=== PATIENT | female | born 1990 | race Caucasian/White ===

== ENCOUNTER 2019-09-06 22:25 | Outpatient (CLI) | payer BC, SELFPAY ==
[2019-09-06 22:41] VITALS: BP 134/81; PULSE 82; TEMP 36.3; O2SAT 98
[2019-09-06 23:19] VITALS: BMI 29.8
[2019-09-06 23:44] VITALS: BP 174/81; PULSE 83; TEMP 36.7; O2SAT 97
[2019-09-06 23:45] VITALS: BP 146/77; PULSE 84
--- NOTE | 2019-09-07 08:36 | OB.TRI.NOTE ---
- Problem List (1) 40 weeks gestation of Status: Acute (2) Primiparous Status: Acute History of Present Illness Date of Service: 09/06/19 Reason For Visit: R/O LABOR History of Present Illness: +Ctx's q 5-8 min apart Allergies Sulfa (Sulfonamide Antibiotics) Adverse Reaction (Verified 09/06/19 23:20) Hives Physical Exam Vitals: Vital Signs Temp Pulse BP Pulse Ox 98.0 F 84 146/77 H 97 09/06/19 23:44 09/06/19 23:45 09/06/19 23:45 09/06/19 23:44 NST - FHR Rate Baby A Baseline: 120 Variability:: Moderate Accelerations:: 15 x 15 Decelerations:: None NST Reactive:: Yes FHR Category:: Category I Uterine Activity:: Ctx q 3-8 min Impression/Plan Cvx unchanged Likely in early labor Patient given return precautions and when to call
== END 2019-09-07 00:25 | disposition home or self-care (01) ==
LOC: WPOUT 22:37 → OBT 22:38
PROVIDERS: Visit Provider Obstetrics & Gynecology
DX: Z34.93 Encounter for supervision of normal pregnancy, unspecified, third trimester (principal)
CPT/HCPCS: 59025; 59050; 99218; G0378

== ENCOUNTER 2019-09-07 13:14 | Inpatient (IN) | payer BC, SELFPAY ==
[2019-09-06 23:19] VITALS: BMI 29.8
[2019-09-07] VITALS (37 sets, daily range): BP systolic 98–144; BP diastolic 54–103; PULSE 72–105; TEMP 36.2–36.9; O2SAT 96–100; BMI 29.3
[2019-09-07] MEDS: Lactated Ringers 1,000 ML 50 ML IV (13:23)
[2019-09-07 13:33] LABS: Absolute Lymphocyte Count 1.43 X10^3/uL (0.83-4.51); Absolute Neutrophil Count 6.6 X10^3/uL (2.0-7.7); Basophil# 0.02 X10^3/uL; Basophil% 0.2 % (0-1); Eosinophil# 0.05 X10^3/uL; Eosinophils% 0.6 % (0-5); Hematocrit 30.7 % (37-47); Hemoglobin 10.6 g/dL (12.0-15.0); Lymphocyte # 1.43 X10^3/ul (4.0); Lymphocyte % 16.6 % (19-41); Mean Corp Hgb Conc 34.5 g/dL (32-36); Mean Corpuscular Hgb 31.8 pg (27.0-32.0); Mean Corpuscular Volume 92.2 fL (81-99); Mean Platelet Vol. 9.9 fl (6.2-12.0); Monocyte# 0.48 X10^3/uL; Monocyte% 5.6 % (0-10); NRBC Flagged by Analyzer 0 % (0-5); Neutrophil % 76.3 % (47-70); Platelet Count 214 K/mm3 (150-450); RBC Distribution Width CV 13.9 % (11.6-14.6); RBC Distribution Width SD 46.1 fl (35.1-43.9); Red Blood Count 3.33 M/mm3 (4.2-5.4); White Blood Count 8.6 K/mm3 (4.4-11.0)
[2019-09-07 14:44] LABS: Probe Check PASS; Specimen Processing Control PASS
--- NOTE | 2019-09-07 14:58 | HP.PCM_ITS ---
- Problem List (1) 40 weeks gestation of Status: Acute (2) Primiparous Status: Acute History Date of Admission: 09/07/19 Final TATI: 09/07/19 Gestational age: 40 Weeks and 0 Days History of this : This is a 29 year-old, G 1, P 0, at 40 weeks gestational age who presents in early labor. Ctx's q 4-6 min. No lof, vb. Good FM. Medical History: Medical History (Last Updated 09/07/19 @ 14:[address] Kailey Banuelos, DO) Abnormal glucose complicating O99.810 History of anxiety Z86.59 History of migraine Z86.69 Allergies Sulfa (Sulfonamide Antibiotics) Adverse Reaction (Verified 09/06/19 23:20) Hives Home Medications: Home Medications Famotidine [Pepcid] 20 mg PO DAILY 09/06/19 Pnv 102/Iron/Folate/Dha 1 cap PO DAILY 09/06/19 Smoking Status: Former smoker Number of Fetus(es): 1 NST - FHR Rate Baby A FHR Category:: Category I Uterine Activity:: Ctx's q 6-8 min History Past Pregnancies: Past Pregnancies Delivery Date Name GA/ Weeks Outcome Route Wt Sex Labor Length Anesthesia Delivery Location Provider FOB Labs: See [facility] records GBS neg Expected Delivery Method: Spontaneous Vaginal Review of Systems Gynecological: Reports: - - +Ctx Physical Exam Vitals: Vital Signs Temp Pulse BP 97.8 F 83 144/85 H 09/07/19 14:44 09/07/19 14:44 09/07/19 14:44 General: Alert, No apparent distress HEENT: Atraumatic Abdomen: Soft, Non Tender, Gravid Extremities:: No edema Neurological: Neuro grossly intact [employer] SPECIALIST: Normal external genitalia Estimated gestational size: Appropriate for gestational size Presentation: Cephalic Cervix Dilation (cm): 3 - per RN Station: -1 Effacement (%): 85 Assessment/Plan All Active Problems 40 weeks gestation of (Acute) Primiparous (Acute) This is a 29 year-old, G1, P0, at 40 weeks gestational age who is admitted in early labor. - Routine intrapartum care - GBS neg - Epidural PRN - Pit for augmentation PRN - EFW estimated to be < 4500g and pelvis adequate. Anticipate
[2019-09-07] MEDS: fentaNYL-bupivacaine (epidural) 100 ML BAG EPIDURAL ×2 (15:49→20:30)
[2019-09-07] MEDS: Oxytocin 30 units/NS 500 ml 30 UNITS/500 ML IV.SOLN IV (17:17)
[2019-09-07] MEDS: Lactated Ringers 1,000 ML 200 ML IV (21:00)
[2019-09-07] MEDS: Ondansetron 4 MG/2 ML Vial IV (21:45)
[2019-09-07] MEDS: 0.9% Saline Lock 10 ML Syringe IV ×2 (21:45→22:21)
[2019-09-07] MEDS: Acetaminophen 325 MG Tablet PO (22:04)
[2019-09-07] MEDS: proCHLORPERazine 10 MG/2 ML Vial IV (22:21)
[2019-09-08] VITALS (28 sets, daily range): BP systolic 111–154; BP diastolic 59–86; PULSE 73–102; RESP 14; TEMP 36.3–37.1; O2SAT 96–98
[2019-09-08] MEDS: Lactated Ringers 500 ML 999 ML IV (00:31)
[2019-09-08] MEDS: fentaNYL-bupivacaine (epidural) 100 ML BAG EPIDURAL ×2 (01:15→07:30)
[2019-09-08] MEDS: Lactated Ringers 1,000 ML 200 ML IV ×2 (02:32→07:55)
[2019-09-08] MEDS: Acetaminophen 325 MG Tablet PO (07:42)
--- NOTE | 2019-09-08 07:59 | PN_ITS ---
Progress Note Patient pushing in hands and knees. Patient has been pushing for about 4 hours with good maternal effort. Category 2 tracing. Discussed possible vacuum assisted vaginal delivery vs primary section. Questions answered. 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 STROKE Vital Signs/Narrative: Vital Signs Temp Pulse BP Pulse Ox 09/08/19 07:39 80 154/86 H 09/08/19 07:29 98.2 F 09/08/19 06:14 86 96 09/08/19 06:12 98.1 F 80 126/72 H 09/08/19 05:01 78 97 09/08/19 05:00 98.1 F 85 123/64 H
[2019-09-08] MEDS: Oxytocin 30 units/NS 500 ml 30 UNITS/500 ML IV.SOLN 334 UNITS IV (09:27)
--- NOTE | 2019-09-08 09:48 | OP.PCM_ITS ---
Vaginal Delivery Maternal Presentation: Active Labor Amniotic Fluid Description: Thick meconium Final TATI: 09/07/19 Gestational age: 40 Weeks and 1 Days Date of Procedure: 09/08/19 Pre-Operative Diagnosis: prolonged second stage of labor, maternal exhaustion Post-Operative Diagnosis: same Surgery/ Procedure Performed: Vacuum Assisted Vaginal Delivery Type of Anesthesia: Epidural Description of Procedure: I arrived and the patient had been pushing for over 4 hours. She had made some progress. Position was WEST. Pelvis is clinically adequate. Estimated weight was less than 4500 g clinically. She had an epidural that was adequate and a Clark catheter in place. Thick meconium stained fluid was present. I discussed with the patient risk benefits and alternatives to trial of vacuum- assisted vaginal delivery. When she pushed the head was labia only slightly. She was plus 2 out of 5 station. Amount of It. The vacuum was placed on the flexion point and the vacuum created to 550 mmHg. I pulled with 1 pull and significant progress was made. I pulled with the next contraction and work progress was made but there was a pop-off. I then attempted to place the vacuum with the next 2 contractions but the suction would not maintain due to the It. Vacuum was then discontinued. With the next 3 contractions with Mariangel Sage CNM assisting with some fundal pressure and maternal pushing efforts, the head then delivered WEST over a second-degree perineal laceration. A loose nuchal cord ?1 was easily reduced. The remainder the was delivered with maternal pushing and gentle traction only in less than 15 seconds. The Pitocin infusion was initiated for active management of the third stage. The cord was clamped and cut after 1 minute. The infant was attended to by the waiting nursing staff. The placenta was delivered spontaneously and intact. The cervix and vagina were intact. The second-degree perineal laceration and right vaginal laceration were repaired with 2-0 Vicryl and 3-0 Vicryl suture in a running standard fashion. Sponge and needle counts were correct. A vaginal sweep was completed by me. Presentation: WEST Placental Delivery Description: Spontaneous Placenta Disposition: [facility] Cord Vessel Description: 3 Vessels Nuchal Cord Compression: Without compression Cord Gases drawn per routine: ABG, VBG Cord Entanglement: Around neck x 1, loose Drain: Clark to straight drain Estimated Blood Loss: 400 Infant A gender: Male (1 minute): 7 (5 minute): 9 Episiotomy Description: None Laceration: Vaginal Extension/lac - right side, 2nd degree Medications given after delivery: IV Pitocin Complications: None
[2019-09-08] MEDS: Naproxen 250 MG Tablet 500 MG PO ×2 (11:09→21:41)
[2019-09-08] MEDS: Acetaminophen 500 MG Tablet 1000 MG PO (17:25)
[2019-09-08] MEDS: Senna/Docusate Sodium 1 Tablet PO (21:41)
[2019-09-09 03:24] VITALS: BP 118/68; PULSE 77; RESP 14; TEMP 36.4
[2019-09-09] MEDS: Acetaminophen 500 MG Tablet 1000 MG PO ×2 (03:31→14:47)
--- NOTE | 2019-09-09 08:16 | PCM.PN.OB ---
Subjective: pt seen at bedside, doing well. pt reports good pain control. lochia mild. breast feeding. - Physical Exam Vitals/I&O's: Vital Signs Temp Pulse Resp BP Pulse Ox 97.6 F L 77 14 118/68 96 09/09/19 03:24 09/09/19 03:24 09/09/19 03:24 09/09/19 03:24 09/08/19 06:14 Oxygen Delivery Method Room Air Weight: 77.6 kg Body Mass Index (BMI) 29.3 Intake and Output for Last 24 Hours 09/07/19 09/08/19 09/09/19 23:59 23:59 23:59 Intake Total 380.83 / 380.83 3821.70 / 3821.70 Output Total 350 / 350 550 / 550 Balance 30.83 / 30.83 3271.70 / 3271.70 Abdomen: Soft, Non Tender, Non-Distended, - - fundus firm Extremities: No Calf Tenderness Current Medications Acetaminophen (Tylenol) 1,000 mg PO Q8H PRN PRN PRN Reason: Pain Score 1-3/10 Last Admin: 09/09/19 03:31 Dose: 1,000 mg Documented by: Bisacodyl (Dulcolax) 10 mg RECTAL UD PRN PRN Reason: If no BM Dibucaine (Dibucaine) 1 applic TOPICAL TID PRN PRN; Protocol PRN Reason: Discomfort Hydrocortisone (Hytone) 1 applic TOPICAL TID PRN PRN; Protocol PRN Reason: Discomfort Methylergonovine Maleate (Methergine) 0.2 mg IM X1 PRN PRN Reason: Excess bleeding/uterine atony Naproxen (Naprosyn) 500 mg PO Q8H PRN PRN PRN Reason: Pain Score 1-3/10 Last Admin: 09/08/19 21:41 Dose: 500 mg Documented by: Ondansetron HCl (Zofran) 4 mg IV Q4H PRN PRN PRN Reason: Nausea Oxycodone HCl (Oxyir) 5 - 10 mg PO Q4H PRN PRN PRN Reason: Pain Score 4-10/10 Prochlorperazine Edisylate (Compazine Iv) 10 mg IV Q6H PRN PRN PRN Reason: NAUSEA/VOMITING Senna/Docusate Sodium (Senokot-S, Kaya-Colace) 1 - 2 tablet PO DAILY PRN PRN PRN Reason: Constipation Last Admin: 09/08/19 21:41 Dose: 2 tablet Documented by: Simethicone (Mylicon) 80 mg PO HS PRN PRN Reason: Indigestion/Stomach pain Sodium Chloride () 5 - 15 ml IV UD PRN PRN Reason: SALINE FLUSH Medical Necessity - Tobacco Use Smoking Status: Former smoker Assessment/Plan All Active Problems (Last Updated 09/07/19 @ 14:[address] Kailey Banuelos, DO) 40 weeks gestation of (Acute) Primiparous (Acute) PPD#1, doing well routine care pain mgmt ambulation
[2019-09-09 08:20] VITALS: BP 108/67; PULSE 83; RESP 16; TEMP 36.4
[2019-09-09] MEDS: Naproxen 250 MG Tablet 500 MG PO ×2 (11:28→20:24)
[2019-09-09 11:30] VITALS: BP 123/66; PULSE 85; RESP 16; TEMP 36.8
[2019-09-09 14:52] VITALS: BP 128/56; PULSE 94; RESP 18; TEMP 36.6
[2019-09-09 20:28] VITALS: BP 130/71; PULSE 78; RESP 16; TEMP 36.6
[2019-09-09] MEDS: Dibucaine 30 GM Tube 1 APPLIC TOPICAL (21:12)
[2019-09-10] MEDS: Acetaminophen 500 MG Tablet 1000 MG PO ×2 (00:56→09:45)
[2019-09-10 01:07] VITALS: BP 114/62; PULSE 78; RESP 14; TEMP 36.7
[2019-09-10] MEDS: Naproxen 250 MG Tablet 500 MG PO (04:38)
[2019-09-10] MEDS: Senna/Docusate Sodium 1 Tablet PO ×2 (04:38→09:46)
--- NOTE | 2019-09-10 08:35 | PCM.PN.OB ---
Subjective: Pain well controlled. Average lochia. Urinating without difficulty. - Physical Exam Vitals/I&O's: Vital Signs Temp Pulse Resp BP Pulse Ox 98.0 F 78 14 114/62 96 09/10/19 01:07 09/10/19 01:07 09/10/19 01:07 09/10/19 01:07 09/08/19 06:14 Oxygen Delivery Method Room Air Weight: 77.6 kg Body Mass Index (BMI) 29.3 Intake and Output for Last 24 Hours 09/08/19 09/09/19 09/10/19 23:59 23:59 23:59 Intake Total 3821.70 / 3821.70 Output Total 550 / 550 Balance 3271.70 / 3271.70 General: Alert, Cooperative, No apparent distress Current Medications Acetaminophen (Tylenol) 1,000 mg PO Q8H PRN PRN PRN Reason: Pain Score 1-3/10 Last Admin: 09/10/19 00:56 Dose: 1,000 mg Documented by: Bisacodyl (Dulcolax) 10 mg RECTAL UD PRN PRN Reason: If no BM Dibucaine (Dibucaine) 1 applic TOPICAL TID PRN PRN; Protocol PRN Reason: Discomfort Last Admin: 09/09/19 21:12 Dose: 1 applicatio Documented by: Hydrocortisone (Hytone) 1 applic TOPICAL TID PRN PRN; Protocol PRN Reason: Discomfort Methylergonovine Maleate (Methergine) 0.2 mg IM X1 PRN PRN Reason: Excess bleeding/uterine atony Naproxen (Naprosyn) 500 mg PO Q8H PRN PRN PRN Reason: Pain Score 1-3/10 Last Admin: 09/10/19 04:38 Dose: 500 mg Documented by: Ondansetron HCl (Zofran) 4 mg IV Q4H PRN PRN PRN Reason: Nausea Oxycodone HCl (Oxyir) 5 - 10 mg PO Q4H PRN PRN PRN Reason: Pain Score 4-10/10 Prochlorperazine Edisylate (Compazine Iv) 10 mg IV Q6H PRN PRN PRN Reason: NAUSEA/VOMITING Senna/Docusate Sodium (Senokot-S, Kaya-Colace) 1 - 2 tablet PO DAILY PRN PRN PRN Reason: Constipation Last Admin: 09/10/19 04:38 Dose: 1 tablet Documented by: Simethicone (Mylicon) 80 mg PO PCHS PRN PRN Reason: Indigestion/Stomach pain Sodium Chloride () 5 - 15 ml IV UD PRN PRN Reason: SALINE FLUSH Throat Lozenges (Dermoplast (Sp)) 1 applic TOPICAL 4X/DAY PRN PRN; Protocol PRN Reason: pain Medical Necessity - Tobacco Use Smoking Status: Former smoker Assessment/Plan All Active Problems (Last Updated 09/07/19 @ 14:[address] Kailey Banuelos, DO) 40 weeks gestation of (Acute) Primiparous (Acute) day #2 status post vaginal delivery. are doing well. Desires discharge home today. Routine instructions and prescriptions.
[2019-09-10 08:36] VITALS: BP 136/82; PULSE 86; RESP 18
--- NOTE | 2019-09-10 08:44 | DCINST_ITS ---
Discharge Diet: No Restrictions Discharge Activity: Return to Normal Activity, May not drive while taking narcotic pain medications., May Shower May resume sexual activity in: 4-6 weeks Additional Activity Instructions:: Nothing in the vagina for 4-6 weeks. You may return to work/school in 6 weeks. Call your doctor if your incision/area has: Continuous Slow Oozing, Sudden Increased Bleeding, Increased Pain/ Swelling, Increased Redness, Foul Smelling Discharge Additional Instructions: If you experience any of the following, contact your healthcare provider. * Bleeding that soaks a pad every hour for 2 hours * Fever 100.4 or higher * Unrelieved incision or abdominal pain * Swelling, redness, discharge or bleeding from your incision or episiotomy site * Your incision begins to separate * Problems urinating (including inability to urinate or burning while urinating). * Visual changes * Severe headache * Flu-like symptoms * Pain or redness in one of both of your breasts * Pain, warmth, tenderness or swelling in your legs, especially the calf area * Frequent nausea and vomiting * Symptoms of depression or anxiety If you experience any of the following, call 911 or go to the nearest Emergency Room. * Chest pain * Problems breathing * Seizure activity * Partial or complete paralysis of a body part, slurred speech, weakness or drooping of the face, or a sudden inability to walk or hold your balance Allergies/Adverse Reactions: Allergies Sulfa (Sulfonamide Antibiotics) Adverse Reaction (Verified 09/06/19 23:20) Hives Medications to take at Discharge Famotidine [Pepcid] 20 mg PO DAILY 09/06/19 Pnv 102/Iron/Folate/Dha 1 cap PO DAILY 09/06/19 Ibuprofen [Motrin] 600 mg PO Q6H PRN #60 tab 09/10/19 The following prescriptions were given: Ibuprofen [Motrin] 600 mg PO Q6H PRN #60 tab PRN Reason: Pain Transmission Status: Pending to [facility]/pharmacy #[id number] Please Follow Up With: Nicolette Rubio MD - [phone] When: Call to make an appointment with your provider's office virtually in 1-2 weeks and in office in 6 weeks or as needed Primary Care Physician: Care Physician,No Primary [Primary Care Provider] - Test Results: Test results from this visit will be discussed in further detail at your follow- up appointment, if applicable.
--- NOTE | 2019-09-10 08:44 | PCM.DCVAG ---
Discharge Diet: No Restrictions Discharge Activity: Return to Normal Activity, May not drive while taking narcotic pain medications., May Shower May resume sexual activity in: 4-6 weeks Additional Activity Instructions:: Nothing in the vagina for 4-6 weeks. You may return to work/school in 6 weeks. Call your doctor if your incision/area has: Continuous Slow Oozing, Sudden Increased Bleeding, Increased Pain/ Swelling, Increased Redness, Foul Smelling Discharge Additional Instructions: If you experience any of the following, contact your healthcare provider. Bleeding that soaks a pad every hour for 2 hours Fever 100.4 or higher Unrelieved incision or abdominal pain Swelling, redness, discharge or bleeding from your incision or episiotomy site Your incision begins to separate Problems urinating (including inability to urinate or burning while urinating). Visual changes Severe headache Flu-like symptoms Pain or redness in one of both of your breasts Pain, warmth, tenderness or swelling in your legs, especially the calf area Frequent nausea and vomiting Symptoms of depression or anxiety If you experience any of the following, call 911 or go to the nearest Emergency Room. Chest pain Problems breathing Seizure activity Partial or complete paralysis of a body part, slurred speech, weakness or drooping of the face, or a sudden inability to walk or hold your balance Allergies/Adverse Reactions: Allergies Sulfa (Sulfonamide Antibiotics) Adverse Reaction (Verified 09/06/19 23:20) Hives Medications to take at Discharge Famotidine [Pepcid] 20 mg PO DAILY 09/06/19 Pnv 102/Iron/Folate/Dha 1 cap PO DAILY 09/06/19 Ibuprofen [Motrin] 600 mg PO Q6H PRN #60 tab 09/10/19 The following prescriptions were given: Ibuprofen [Motrin] 600 mg PO Q6H PRN #60 tab PRN Reason: Pain Transmission Status: Pending to [facility]/pharmacy #[id number] Please Follow Up With: Nicolette Rubio MD - [phone] When: Call to make an appointment with your provider's office virtually in 1-2 weeks and in office in 6 weeks or as needed Primary Care Physician: Care Physician,No Primary [Primary Care Provider] - Test Results: Test results from this visit will be discussed in further detail at your follow-up appointment, if applicable.
[2019-09-10 09:30] VITALS: BP 141/79; PULSE 84; RESP 18; TEMP 36.4
== END 2019-09-10 13:00 | disposition home or self-care (01) | DRG 807 ==
LOC: WP 09-08 09:29 → WPOUT 09-08 10:40
PROVIDERS: Obstetrics & Gynecology; Admitting Provider Obstetrics & Gynecology; Visit Provider Obstetrics & Gynecology
DX: O77.0 Labor and delivery complicated by meconium in amniotic fluid (principal); Z37.0 Single live birth; O69.81X0 Labor and delivery complicated by cord around neck, without compression, not applicable or unspecified; O48.0 Post-term pregnancy; Z3A.40 40 weeks gestation of pregnancy; O70.1 Second degree perineal laceration during delivery
CPT/HCPCS: 59025; 59050; 85025; 86850; 86900; 86901; 87635; 94799; 99218; J7120; A4216; G0378; J2405; U0003

== ENCOUNTER → 2019-09-11 | Outpatient (CLI) | payer BC, SELFPAY ==
[2019-09-12 21:07] VITALS: BMI 27.8
== END | disposition home or self-care (01) ==
LOC: TELEHEALTH 09-15 06:24
PROVIDERS: Referring Provider Obstetrics & Gynecology; Visit Provider Obstetrics & Gynecology
DX: N64.59 Other signs and symptoms in breast (principal)
CPT/HCPCS: 96158

== ENCOUNTER 2019-09-12 20:49 | Outpatient (CLI) | payer BC, SELFPAY ==
[2019-09-07 13:16] VITALS: BMI 29.3
[2019-09-12] VITALS (17 sets, daily range): BP systolic 116–176; BP diastolic 68–98; PULSE 69–78; RESP 15–18; TEMP 36.4–36.7; O2SAT 98–99; BMI 27.6; BMI 27.8
--- NOTE | 2019-09-12 20:48 | ED.RN ---
pt was brought to ED for hypertension and bilateral lower leg swelling. ED nurse spoke with OB who were expecting pt to be seen in their department. [facility] upon realizing this.
--- NOTE | 2019-09-12 21:08 | NURSING ---
Demian Sage CNM at bedside to assess patient at this time.
--- NOTE | 2019-09-12 21:22 | PCM.HP.OB ---
- Problem List (1) hypertension Status: Acute History Date of Admission: 09/07/19 History of this : This is a 29 year-old, G [], P [], at weeks gestational age. Medical History: Medical History (Last Updated 09/07/19 @ 14:[address] Kailey Banuelos, DO) Abnormal glucose complicating O99.810 History of anxiety Z86.59 History of migraine Z86.69 Allergies Sulfa (Sulfonamide Antibiotics) Adverse Reaction (Verified 09/12/19 20:34) Hives Smoking Status: Former smoker History Past Pregnancies: Past Pregnancies Delivery Date Name GA/ Weeks Outcome Route Wt Sex Labor Length Anesthesia Delivery Location Provider FOB Physical Exam Vitals: Vital Signs Temp Pulse Resp BP Pulse Ox 98.1 F 72 15 154/91 H 98 09/12/19 20:31 09/12/19 20:31 09/12/19 20:31 09/12/19 20:31 09/12/19 20:31 Assessment/Plan All Active Problems (Last Updated 09/07/19 @ 14:[address] Kailey Banuelos, ) 40 weeks gestation of (Acute) Primiparous (Acute) hypertension (Acute) This is a 29 year-old, G [], P [], at weeks gestational age.
--- NOTE | 2019-09-12 21:25 | HP.PCM_ITS ---
Problem List (1) hypertension Status: Acute History of Present Illness Date of Admission: 09/12/19 Chief Complaint: Lower extremity edema and elevated blood pressure The patient is a 29 year old F []Presents 4 days with comp laint of bilateral lower extremity edema that was present earlier this morning with no other complaints. Began to feel off later in the day and took BP at home, elevated 157/92 and advised to come to labor and delivery. Has dull headache but this is normal for her and nothing new since before delivery, no scotoma. Denies chest pain, shortness of breath, or right upper quadrant pain. without difficulty. Sleeping well and has good support at home. Denies any increased anxiety or depression. course was uncomplicated. Past Medical History Medical History: Medical History (Last Updated 09/07/19 @ 14:[address] Kailey Banuelos DO) Abnormal glucose complicating O99.810 History of anxiety Z86.59 History of migraine Z86.69 Allergies Sulfa (Sulfonamide Antibiotics) Adverse Reaction (Verified 09/12/19 20:34) Hives Smoking Status: Former smoker Alcohol: None Drugs: None Review of Systems Constitutional: Denies: Chills, Fever, Weight Change Eyes: Denies: Blurred vision, Double vision, Vision Change HEENT: Denies: Head Aches, Sinus Congestion, Sinus Drainage Cardiovascular: Denies: Chest Pain, Palpitations Respiratory: Denies: Cough, Shortness of breath at rest, Sputum production Gastrointestinal: Denies: Abdominal Pain, Nausea, Vomiting Genitourinary: Denies: Dysuria Musculoskeletal: Denies: Joint Pain, Joint Tenderness Skin: Denies: Rash, Wounds Neurological: Denies: Numbness, Tingling, Focal weakness Psychiatric: Denies: Anxiety, Depression, Homicidal Ideations, Suicidal Ideations Hematologic/ Lymphatic: Denies: Easy Bruising, Easy Bleeding VTE Information - Inpt Only VTE Present on Admission: No Patient Problems: Active and Suspected Problems (Last Updated 09/07/19 @ 14:[address] Kailey Banuelos DO) hypertension (Acute) - Physical Exam Vitals/I&O's: Vital Signs Temp Pulse Resp BP Pulse Ox 98.1 F 72 15 154/91 H 98 09/12/19 20:31 09/12/19 20:31 09/12/19 20:31 09/12/19 20:31 09/12/19 20:31 Oxygen Delivery Method Room Air Weight: 162 lb Body Mass Index (BMI) 27.8 General: Alert, Oriented x3, Cooperative HEENT: Atraumatic, Normocephalic Neck: Trachea Midline Lungs: Clear to auscultation, Normal air movement, No rhonchi, No wheeze Cardiovascular: Regular rate, Regular Rhythm, No murmurs Abdomen: Bowel Sounds Present, Soft, Non Tender Extremities: No edema Neurological: Deep Tendon Reflexes 2+/4 and Symmetrical - No clonus Psych/Mental Status: Normal Affect, Appropriate Current Medications Hydralazine HCl (Apresoline Iv) 10 mg IV X1 PRN PRN Reason: Elevated BP Calcium Gluconate 1 gm/ N/A 10 mls @ 2 mls/min IV X1 PRN PRN Reason: Magnesium Toxicity Magnesium Sulfate () 4 gm in 100 mls @ 300 mls/hr IV X1 ONE Stop: 09/12/19 21:29 Magnesium Sulfate (20gm/500ml) 20 gm in 500 mls @ 50 mls/hr IV .Q10H EDENILSON; Protocol Labetalol HCl (Trandate) 20 mg IV X1 PRN PRN Reason: Elevated BP Labetalol HCl (Trandate) 40 mg IV X1 PRN PRN Reason: Elevated BP Labetalol HCl (Trandate) 80 mg IV X1 PRN PRN Reason: Elevated BP Midazolam HCl (Versed) 2 mg IV X1 PRN PRN Reason: Seizure Activity Assessment/Plan All Active Problems (Last Updated 09/07/19 @ 14:[address] Kailey Banuelos, DO) 40 weeks gestation of (Acute) Primiparous (Acute) hypertension (Acute) A: Preeclampsia P: 1) Admit to labor and delivery for preeclampsia 2) CMP, CBC now and repeat in am 3) Start Magnesium 4gm loading dose and 2gm maintenance for 24hr 4) Labetalol 20mg IV x 1, then Labetalol 100mg PO BID 5) IV at 75ml per hour 6) notified and orders given to nursing. Updated on patient status and will evaluate in am.
[2019-09-12] MEDS: Lactated Ringers 1,000 ML 75 ML IV (21:30)
[2019-09-12] MEDS: Labetalol (Prefilled) 20 MG/4 ML IV (21:33)
[2019-09-12] MEDS: Magnesium Sulfate 4gm/100mL 4 GM/100 ML IV.SOLN. IV (21:42)
[2019-09-12 21:51] LABS: Absolute Lymphocyte Count 2.09 X10^3/uL (0.83-4.51); Absolute Neutrophil Count 4.6 X10^3/uL (2.0-7.7); Basophil# 0.05 X10^3/uL; Basophil% 0.7 % (0-1); Eosinophil# 0.18 X10^3/uL; Eosinophils% 2.4 % (0-5); Hematocrit 28.5 % (37-47); Hemoglobin 9.6 g/dL (12.0-15.0); Lymphocyte # 2.09 X10^3/ul (4.0); Lymphocyte % 27.3 % (19-41); Mean Corp Hgb Conc 33.7 g/dL (32-36); Mean Corpuscular Hgb 31.7 pg (27.0-32.0); Mean Corpuscular Volume 94.1 fL (81-99); Mean Platelet Vol. 9.3 fl (6.2-12.0); Monocyte# 0.43 X10^3/uL; Monocyte% 5.6 % (0-10); NRBC Flagged by Analyzer 0 % (0-5); Neutrophil # 4.59 X10^3/uL (2.7-7.7); Neutrophil % 59.9 % (47-70); Platelet Count 263 K/mm3 (150-450); RBC Distribution Width CV 13.5 % (11.6-14.6); RBC Distribution Width SD 46.3 fl (35.1-43.9); Red Blood Count 3.03 M/mm3 (4.2-5.4); White Blood Count 7.7 K/mm3 (4.4-11.0)
--- NOTE | 2019-09-12 22:00 | NURSING ---
Report received from Iliana KNOTT, taking over pt care at this time.
[2019-09-12] MEDS: Magnesium Sulfate 20 GM/500 ML BAG IV (22:03)
[2019-09-12 22:08] LABS: Prothrombin Time (Protime)PT. 13.2 SECONDS (11.7-14.9)
[2019-09-12 22:09] LABS: Partial Thromboplast Time 27.2 Seconds (24.1-36.2)
[2019-09-12 22:21] LABS: ALB/GLOB Ratio 0.7 RATIO (0.9-2.4); AST(SGOT) 20 U/L (15-37); Alanine Aminotransfer ALT/SGPT 56 U/L (13-56); Albumin, Serum 2.7 g/dL (3.2-5.0); Alkaline Phosphatase 128 U/L (45-117); Anion Gap 7 (5-15); BUN 11 mg/dL (7-18); BUN/Creat Ratio 13.5 RATIO (10-20); Calcium,Total 8.5 mg/dL (8.5-10.1); Chloride 110 mmol/L (98-107); Creatinine, Serum 0.82 mg/dL (0.55-1.02); EST Glomerular Filtration Rate 88 mL/min (>60); Est Glom Filt Rate - Afr Amer 107 mL/min (>60); Estimated Creatinine Clearance 87.41 ml/min; Globulin 3.8 g/dL (2.2-4.2); Glucose 93 mg/dL (74-106); Potassium 3.8 mmol/L (3.5-5.1); Protein, Total 6.5 g/dL (6.4-8.2); Sodium Level 140 mmol/L (136-145)
[2019-09-12 22:23] LABS: AST(SGOT) 21 U/L (15-37); Alanine Aminotransfer ALT/SGPT 54 U/L (13-56); Creatinine, Serum 0.78 mg/dL (0.55-1.02); EST Glomerular Filtration Rate 93 mL/min (>60); Est Glom Filt Rate - Afr Amer 112 mL/min (>60); Uric Acid 5.5 mg/dL (2.6-6.0)
[2019-09-12] MEDS: Labetalol 100 MG Tablet PO (23:14)
[2019-09-12] MEDS: Docusate Sodium 100 MG Capsule PO (23:16)
[2019-09-13] VITALS (46 sets, daily range): BP systolic 112–142; BP diastolic 58–82; PULSE 56–87; RESP 16–18; TEMP 35.7–36.9; O2SAT 82–99
[2019-09-13 00:18] LABS: Probe Check PASS; Specimen Processing Control PASS
[2019-09-13] MEDS: Acetaminophen 500 MG Tablet 1000 MG PO ×3 (02:35→18:34)
[2019-09-13 04:51] LABS: Absolute Lymphocyte Count 1.84 X10^3/uL (0.83-4.51); Absolute Neutrophil Count 3.9 X10^3/uL (2.0-7.7); Basophil# 0.04 X10^3/uL; Basophil% 0.6 % (0-1); Eosinophil# 0.13 X10^3/uL; Hematocrit 28.6 % (37-47); Hemoglobin 9.5 g/dL (12.0-15.0); Lymphocyte # 1.84 X10^3/ul (4.0); Lymphocyte % 28.1 % (19-41); Mean Corp Hgb Conc 33.2 g/dL (32-36); Mean Corpuscular Hgb 31.9 pg (27.0-32.0); Mean Platelet Vol. 9.1 fl (6.2-12.0); Monocyte# 0.37 X10^3/uL; Monocyte% 5.6 % (0-10); NRBC Flagged by Analyzer 0 % (0-5); Neutrophil # 3.93 X10^3/uL (2.7-7.7); Platelet Count 227 K/mm3 (150-450); RBC Distribution Width CV 13.6 % (11.6-14.6); RBC Distribution Width SD 46.9 fl (35.1-43.9); Red Blood Count 2.98 M/mm3 (4.2-5.4); White Blood Count 6.6 K/mm3 (4.4-11.0)
[2019-09-13 05:06] LABS: ALB/GLOB Ratio 0.7 RATIO (0.9-2.4); AST(SGOT) 20 U/L (15-37); Alanine Aminotransfer ALT/SGPT 53 U/L (13-56); Albumin, Serum 2.6 g/dL (3.2-5.0); Alkaline Phosphatase 123 U/L (45-117); Anion Gap 6 (5-15); BUN 10 mg/dL (7-18); BUN/Creat Ratio 13.8 RATIO (10-20); Calcium,Total 7.7 mg/dL (8.5-10.1); Chloride 106 mmol/L (98-107); Creatinine, Serum 0.72 mg/dL (0.55-1.02); EST Glomerular Filtration Rate 101 mL/min (>60); Est Glom Filt Rate - Afr Amer 122 mL/min (>60); Estimated Creatinine Clearance 99.56 ml/min; Globulin 3.8 g/dL (2.2-4.2); Glucose 104 mg/dL (74-106); Potassium 3.4 mmol/L (3.5-5.1); Protein, Total 6.4 g/dL (6.4-8.2); Sodium Level 138 mmol/L (136-145)
--- NOTE | 2019-09-13 07:14 | PN.OBGYN_ITS ---
Patient Problems: Active and Suspected Problems (Last Updated 09/07/19 @ 14:[address] Kailey Banuelos, DO) hypertension (Acute) Subjective: Patient is asleep. Nursing staff reports she did well overnight and has had a headache since admission but has been persistent. No vision changes or upper abd pain. She has been ambulating and voiding well and tolerating clears - Physical Exam Vitals/I&O's: Vital Signs Temp Pulse Resp BP Pulse Ox 96.9 F L 70 16 130/74 H 97 09/13/19 06:30 09/13/19 06:37 09/13/19 06:30 09/13/19 06:37 09/13/19 06:30 Oxygen Delivery Method Room Air Weight: 162 lb Body Mass Index (BMI) 27.8 Intake and Output for Last 24 Hours 09/11/19 09/12/19 09/13/19 23:59 23:59 23:59 Intake Total 475.83 / 475.83 746.67 / 746.67 Output Total 500 / 500 1650 / 1650 Balance -24.17 / -24.17 -903.33 / -903.33 General: No apparent distress, - - Asleep upon entering room Laboratory Results 09/12/19 21:30: WBC 7.7, RBC 3.03 L, Hgb 9.6 L, Hct 28.5 L, MCV 94.1, MCH 31.7, MCHC 33.7, RDW Std Deviation 46.3 H, RDW Coeff of Ira 13.5, Plt Count 263, MPV 9.3, Immature Gran % (Auto) 4.100 H, Neut % (Auto) 59.9, Lymph % (Auto) 27.3, [place] % (Auto) 5.6, Eos % (Auto) 2.4, Baso % (Auto) 0.7, Absolute Neuts (auto) 4.6, Absolute Lymphs (auto) 2.09, Nucleated RBC % 0 09/12/19 21:30: Sodium 140, Potassium 3.8, Chloride 110 H, Carbon Dioxide 23.0, Anion Gap 7, BUN 11, Creatinine 0.82, Estim Creat Clear Calc 87.41, Est GFR (MDRD) Af Amer 107, Est GFR (MDRD) Non-Af 88, BUN/Creatinine Ratio 13.5, Glucose 93, Calcium 8.5, Total Bilirubin 0.20, AST 20, ALT 56, Alkaline Phosphatase 128 H, Total Protein 6.5, Albumin 2.7 L, Globulin 3.8, Albumin/Globulin Ratio 0.7 L 09/12/19 21:30: PT 13.2, INR 1.0, APTT 27.2 09/12/19 21:30: Creatinine 0.78, Estim Creat Clear Calc 91.90, Est GFR (MDRD) Af Amer 112, Est GFR (MDRD) Non-Af 93, Uric Acid 5.5, AST 21, ALT 54 09/12/19 22:25: COVID-19 ([facility]) Not Detected 09/13/19 04:35: WBC 6.6, RBC 2.98 L, Hgb 9.5 L, Hct 28.6 L, MCV 96.0, MCH 31.9, MCHC 33.2, RDW Std Deviation 46.9 H, RDW Coeff of Ira 13.6, Plt Count 227, MPV 9.1, Immature Gran % (Auto) 3.700 H, Neut % (Auto) 60.0, Lymph % (Auto) 28.1, [place] % (Auto) 5.6, Eos % (Auto) 2.0, Baso % (Auto) 0.6, Absolute Neuts (auto) 3.9, Absolute Lymphs (auto) 1.84, Nucleated RBC % 0 09/13/19 04:35: Sodium 138, Potassium 3.4 L, Chloride 106, Carbon Dioxide 26.0, Anion Gap 6, BUN 10, Creatinine 0.72, Estim Creat Clear Calc 99.56, Est GFR (MDRD) Af Amer 122, Est GFR (MDRD) Non-Af 101, BUN/Creatinine Ratio 13.8, Glucose 104, Calcium 7.7 L, Total Bilirubin 0.30, AST 20, ALT 53, Alkaline Phosphatase 123 H, Total Protein 6.4, Albumin 2.6 L, Globulin 3.8, Albumin/Globulin Ratio 0.7 L Current Medications Acetaminophen (Tylenol) 1,000 mg PO Q8H PRN PRN PRN Reason: Pain Score 1-10/ Last Admin: 09/13/19 02:35 Dose: 1,000 mg Documented by: Docusate Sodium (Colace) 100 mg PO DAILY [facility] Last Admin: 09/12/19 23:16 Dose: 100 mg Documented by: Magnesium Sulfate (20gm/500ml) 20 gm in 500 mls @ 50 mls/hr IV .Q10H [facility]; Protocol Last Infusion: 09/13/19 06:30 Dose: 2 gm/hr, 50 mls/hr Documented by: Lactated Ringer's () 1,000 mls @ 75 mls/hr IV .[id number] [facility] Last Admin: 09/12/19 21:30 Dose: 75 mls/hr Documented by: Labetalol HCl (Trandate) 100 mg PO BID [facility] Labetalol HCl (Trandate) 20 mg IV Q10M PRN PRN PRN Reason: Elevated BP Medical Necessity - Tobacco Use Smoking Status: Former smoker Assessment/Plan All Active Problems (Last Updated 09/07/19 @ 14:[address] Kailey Banuelos, DO) 40 weeks gestation of (Acute) Primiparous (Acute) hypertension (Acute) HD#1 s/p admission for pre-eclampsia - S/p 4 g mag bolus. Continue mag gtt at 2g/hr for 24 hrs - Will allow for regular diet and d/c maintenance IVF's. Continue strict I/O's. Net I/O so far -927 mL. UOP adequate. Will restrict total fluids PO/IV to 100 cc/hr - Hypokalemia: Will replace with oral potassium - Repeat labs in the morning - BP's have been normal. Continue Labetalol 100mg PO BID - Dispo: Possible d/c home tomorrow
[2019-09-13] MEDS: Magnesium Sulfate 20 GM/500 ML BAG IV ×2 (07:39→17:35)
[2019-09-13] MEDS: Ibuprofen 600 MG Tablet PO ×3 (09:28→21:34)
[2019-09-13] MEDS: Labetalol 100 MG Tablet PO ×2 (10:08→21:34)
[2019-09-13] MEDS: Docusate Sodium 100 MG Capsule PO (21:33)
[2019-09-14] VITALS (11 sets, daily range): BP systolic 125–147; BP diastolic 64–82; PULSE 64–78; RESP 16; TEMP 36.6–36.8; O2SAT 98–99
[2019-09-14] MEDS: Acetaminophen 500 MG Tablet 1000 MG PO ×2 (02:17→09:51)
[2019-09-14] MEDS: Ibuprofen 600 MG Tablet PO ×2 (05:30→11:24)
[2019-09-14 05:36] LABS: Hematocrit 28.4 % (37-47); Hemoglobin 9.7 g/dL (12.0-15.0); Mean Corp Hgb Conc 34.2 g/dL (32-36); Mean Corpuscular Hgb 32.1 pg (27.0-32.0); Mean Platelet Vol. 8.9 fl (6.2-12.0); Platelet Count 264 K/mm3 (150-450); RBC Distribution Width CV 13.5 % (11.6-14.6); RBC Distribution Width SD 46.2 fl (35.1-43.9); Red Blood Count 3.02 M/mm3 (4.2-5.4)
[2019-09-14 05:57] LABS: ALB/GLOB Ratio 0.7 RATIO (0.9-2.4); AST(SGOT) 16 U/L (15-37); Alanine Aminotransfer ALT/SGPT 49 U/L (13-56); Albumin, Serum 2.9 g/dL (3.2-5.0); Alkaline Phosphatase 120 U/L (45-117); Anion Gap 6 (5-15); BUN 12 mg/dL (7-18); BUN/Creat Ratio 13.9 RATIO (10-20); Calcium,Total 6.7 mg/dL (8.5-10.1); Chloride 106 mmol/L (98-107); Creatinine, Serum 0.86 mg/dL (0.55-1.02); EST Glomerular Filtration Rate 83 mL/min (>60); Est Glom Filt Rate - Afr Amer 100 mL/min (>60); Estimated Creatinine Clearance 83.35 ml/min; Globulin 3.9 g/dL (2.2-4.2); Glucose 86 mg/dL (74-106); Potassium 3.8 mmol/L (3.5-5.1); Protein, Total 6.8 g/dL (6.4-8.2); Sodium Level 137 mmol/L (136-145)
[2019-09-14] MEDS: Labetalol 100 MG Tablet PO (09:51)
--- NOTE | 2019-09-14 09:57 | NURSING ---
0823: reflexes +2 bilaterally biceps and patellar, no clonus noted and pt denies preeclampsia symptoms with assessment except frontal KIM 02/21. Pt states it is much better than it has been and I always have a headache, that's not unusual for me. 0945: Pt anxious about going home, see rounding note by this RN. Pt doing better at this time, eating breakfast now. Pt just up to BR to void while this RN in room and feels she emptied her bladder.
--- NOTE | 2019-09-14 10:38 | PN.OBGYN_ITS ---
Patient Problems: Active and Suspected Problems (Last Updated 09/07/19 @ 14:[address] Kailey Banuelos, DO) hypertension (Acute) Subjective: Doing well per patient and nursing staff. Anxious this morning that she would not be able to go home. Magnesium off. Mild headache rating 1/10 and no visual changes or RUQ pain. Offers no complaints. - Physical Exam Vitals/I&O's: Vital Signs Temp Pulse Resp BP Pulse Ox 98.1 F 70 16 147/80 H 99 09/14/19 08:25 09/14/19 09:45 09/14/19 09:45 09/14/19 09:45 09/14/19 09:45 Oxygen Delivery Method Room Air Weight: 162 lb Body Mass Index (BMI) 27.8 Intake and Output for Last 24 Hours 09/12/19 09/13/19 09/14/19 23:59 23:59 23:59 Intake Total 475.83 / 475.83 2833.74 / 2833.74 Output Total 500 / 500 4525 / 4525 Balance -24.17 / -24.17 -1691.26 / -1691.26 General: Alert, Oriented x3, Cooperative HEENT: Atraumatic, Normocephalic Neck: Trachea Midline Lungs: Clear to auscultation, Normal air movement, No rhonchi, No wheeze Cardiovascular: Regular rate, Regular Rhythm, No murmurs Abdomen: Bowel Sounds Present, Soft Extremities: No edema Neurological: Deep Tendon Reflexes 2+/4 and Symmetrical - No clonus Psych/Mental Status: Normal Affect, Appropriate Laboratory Results 09/14/19 05:30: WBC 6.0, RBC 3.02 L, Hgb 9.7 L, Hct 28.4 L, MCV 94.0, MCH 32.1 H , MCHC 34.2, RDW Std Deviation 46.2 H, RDW Coeff of Ira 13.5, Plt Count 264, MPV 8.9 09/14/19 05:30: Sodium 137, Potassium 3.8, Chloride 106, Carbon Dioxide 25.0, Anion Gap 6, BUN 12, Creatinine 0.86, Estim Creat Clear Calc 83.35, Est GFR (MDRD) Af Amer 100, Est GFR (MDRD) Non-Af 83, BUN/Creatinine Ratio 13.9, Glucose 86, Calcium 6.7 L, Total Bilirubin 0.20, AST 16, ALT 49, Alkaline Phosphatase 120 H, Total Protein 6.8, Albumin 2.9 L, Globulin 3.9, Albumin/Globulin Ratio 0.7 L Current Medications Acetaminophen (Tylenol) 1,000 mg PO Q8H PRN PRN PRN Reason: Pain Score 1-10/10 Last Admin: 09/14/19 09:51 Dose: 1,000 mg Documented by: Docusate Sodium (Colace) 100 mg PO DAILY [facility] Last Admin: 09/13/19 21:33 Dose: 100 mg Documented by: Magnesium Sulfate (20gm/500ml) 20 gm in 500 mls @ 50 mls/hr IV .Q10H [facility]; Protocol Last Admin: 09/13/19 23:57 Dose: Not Given Documented by: Ibuprofen (Motrin) 600 mg PO Q6H PRN PRN PRN Reason: HEADACHE Last Admin: 09/14/19 05:30 Dose: 600 mg Documented by: Labetalol HCl (Trandate) 100 mg PO BID [facility] Last Admin: 09/14/19 09:51 Dose: 100 mg Documented by: Labetalol HCl (Trandate) 20 mg IV Q10M PRN PRN PRN Reason: Elevated BP Medical Necessity - Tobacco Use Smoking Status: Former smoker Assessment/Plan All Active Problems (Last Updated 09/07/19 @ 14:[address] Kailey Banuelos, ) 40 weeks gestation of (Acute) Primiparous (Acute) hypertension (Acute) A: Preeclampsia P: 1)Output adequate 2) Labetalol 100mg PO BID, will follow up in 2 days. Reviewed when to call 3) Potassium replaced, normal 4) Discharge instructions reviewed. notified of patient status.
--- NOTE | 2019-09-14 10:42 | PCM.DC ---
- Discharge Diagnoses Current Active Problems: Current Active and Chronic Problems (Last Updated 09/07/19 @ 14:[address] Kailey Banuelos, DO) hypertension (Acute) You will use the following diet at home:: Regular May resume sexual activity in: 4-6 weeks Weight Bearing Status: Full weight bearing Call your doctor if your incision/area has: Continuous Slow Oozing, Sudden Increased Bleeding, Increased Pain/ Swelling, Increased Redness, Foul Smelling Discharge, Swelling at the incision site Call your doctor if you observe: Fever of 101 or Higher - Call if blood pressure persistent 140/90 Allergies/Adverse Reactions: Allergies Sulfa (Sulfonamide Antibiotics) Adverse Reaction (Verified 09/12/19 20:34) Hives Primary Care Physician: Care Physician,No Primary [Primary Care Provider] - Mariangel Sage CNM [Certified Nurse Web Design Specialist] - Please follow up with your Primary Care Physician in: 2 days Test Results: Test results from this visit will be discussed in further detail at your follow-up appointment, if applicable.
== END 2019-09-14 11:35 | disposition home or self-care (01) ==
LOC: WPOUT 20:55 → WP 20:58
PROVIDERS: Obstetrics & Gynecology; Visit Provider Advanced Practice Midwife
DX: O14.95 Unspecified pre-eclampsia, complicating the puerperium (principal); O99.285 Endocrine, nutritional and metabolic diseases complicating the puerperium; E87.6 Hypokalemia; Z87.891 Personal history of nicotine dependence
CPT/HCPCS: 96365; 96366; 96375; 80053; 82565; 84450; 84460; 84550; 85025; 85027; 85610; 85730; 87635; 94799; 99218; J7120; G0378; U0003

== ENCOUNTER 2023-03-21 14:00 | Inpatient (IN) | payer OTHER, SELFPAY ==
[2023-03-21] VITALS (21 sets, daily range): BP systolic 119–137; BP diastolic 66–78; PULSE 74–96; TEMP 36.4–37.3; O2SAT 97–99; BMI 29.3
[2023-03-21 11:36] LABS: Hematocrit 31.4 % (37-47); Mean Corpuscular Hgb 31.3 pg (27.0-32.0); Mean Corpuscular Volume 89.5 fL (81-99); Mean Platelet Vol. 9.5 fl (6.2-12.0); Platelet Count 220 K/mm3 (150-450); RBC Distribution Width CV 13.3 % (11.6-14.6); RBC Distribution Width SD 43.3 fl (35.1-43.9); Red Blood Count 3.51 M/mm3 (4.2-5.4); White Blood Count 7.8 K/mm3 (4.4-11.0)
[2023-03-21 11:46] LABS: Protein, Urine (Random) 9.7 mg/dL (<11.9); Protein:Creat Ratio 460 mg/g CRE (0-200)
[2023-03-21 11:48] LABS: AST(SGOT) 8 U/L (15-37); Alanine Aminotransfer ALT/SGPT 14 U/L (13-56); EST Glomerular Filtration Rate 122 mL/min (>60); Est Glom Filt Rate - Afr Amer 147 mL/min (>60); Uric Acid 4.5 mg/dL (2.6-6.0)
[2023-03-21] MEDS: Acetaminophen/Butalbital/Caffe 1 Tablet PO ×2 (16:56→21:23)
--- NOTE | 2023-03-21 17:40 | HP.PCM.OB_ITS ---
HPI - General General Date of Admission: 03/21/23 HPI Narrative ABDULLAHI MARCELINO, is a 32 F who presents with headache since yesterday with vision changes, and increased blood pressures at home. She called into office and was sent to L&D for evaluation. complicated by Polyhydramnios, LGA (EFW 93%), anemia and pyelectasis which resolved. History of post preeclampsia. Maternal Data Information TATI Calculator Estimated Delivery Date Method Current WG Current Estimate 04/12/23 Manual 36w 6d PFSH [facility] Medical History (Updated 03/21/23 @ 19:22 by Alana Dougherty CNM) Abnormal glucose complicating Anxiety Depression Headache History of anxiety History of migraine Pre-eclampsia Home Medications acetaminophen 325 mg capsule (Tylenol) 650 mg PO Q4H PRN headache 03/21/23 [History Last Taken 03/21/23] aspirin .ROUTE 03/21/23 [History Last Taken 03/21/23] docosahexaenoic acid 200 mg capsule ( DHA) mg PO 03/21/23 [History Last Taken Unknown] escitalopram oxalate 20 mg tablet (Lexapro) 20 mg PO DAILY anxiety 03/21/23 [History Last Taken 03/20/23 22:00 20 mg] ferrous sulfate 325 mg (65 mg iron) tablet (iron) 325 mg PO QODAY 03/21/23 [History Last Taken Unknown] Allergy/AdvReac Type Severity Reaction Status Date / Time Sulfa (Sulfonamide AdvReac Hives Verified 09/12/19 20:34 Antibiotics) Social History Smoking Status: Former smoker History Elective abortions Hx Para 1 Spontaneous abortions Hx # Term Pregnancies Ectopic pregnancies Hx # Pregnancies Multiple births # of living children ROS Eyes Eyes: Reports change in vision bilateral ENT HEENT: Reports as per HPI and dizziness Cardiovascular Cardiovascular: Denies abdominal pain, chest pain or dyspnea Respiratory/Chest Respiratory/Chest: Denies cough, dyspnea, shortness of breath at rest or shortness of breath with exertion Gastrointestinal Gastrointestinal: Denies abdominal pain, diarrhea or vomiting Genitourinary Genitourinary: Denies change in urinary stream, difficulty urinating or dysuria Musculoskeletal Musculoskeletal: Reports none Integumentary Integumentary: Denies rash Neurologic Neurologic: Reports headache(s); Denies memory loss or weakness Psychiatric Psychiatric: Reports none Vital Signs Vital Signs Vital Signs: 03/21/23 11:03 03/21/23 11:03 03/21/23 11:05 Temperature Temperature Source Pulse Rate 86 91 Blood Pressure 122/73 H BP Systolic 122 BP Diastolic 73 Pulse Ox 03/21/23 11:05 03/21/23 11:18 03/21/23 11:18 Temperature Temperature Source Pulse Rate 88 Blood Pressure 119/71 BP Systolic 119 BP Diastolic 71 Pulse Ox 97 03/21/23 11:03 03/21/23 11:03 03/21/23 11:03 Temperature 98.7 F Temperature Source Tympanic Pulse Rate Blood Pressure BP Systolic BP Diastolic Pulse Ox 97 03/21/23 11:34 03/21/23 11:34 03/21/23 11:49 Temperature Temperature Source Pulse Rate 81 Blood Pressure 132/75 H 123/73 H BP Systolic 132 123 BP Diastolic 75 73 Pulse Ox 03/21/23 11:49 03/21/23 12:03 03/21/23 12:03 Temperature Temperature Source Pulse Rate 83 81 Blood Pressure 120/72 BP Systolic 120 BP Diastolic 72 Pulse Ox 03/21/23 12:19 03/21/23 12:19 03/21/23 12:34 Temperature Temperature Source Pulse Rate 83 Blood Pressure 128/72 H 126/66 H BP Systolic 128 126 BP Diastolic 72 66 Pulse Ox 03/21/23 12:34 03/21/23 12:49 03/21/23 12:49 Temperature Temperature Source Pulse Rate 80 80 Blood Pressure 129/72 H BP Systolic 129 BP Diastolic 72 Pulse Ox 03/21/23 13:04 03/21/23 13:04 03/21/23 13:19 Temperature Temperature Source Pulse Rate 83 Blood Pressure 131/74 H 134/78 H BP Systolic 131 134 BP Diastolic 74 78 Pulse Ox 03/21/23 13:19 03/21/23 13:36 03/21/23 13:36 Temperature Temperature Source Pulse Rate 96 85 Blood Pressure 129/74 H BP Systolic 129 BP Diastolic 74 Pulse Ox 03/21/23 13:50 03/21/23 13:50 03/21/23 16:00 Temperature Temperature Source Pulse Rate 82 Blood Pressure 131/72 H 131/77 H BP Systolic 131 131 BP Diastolic 72 77 Pulse Ox 03/21/23 16:00 03/21/23 15:59 Temperature 98.6 F Temperature Source Pulse Rate 94 Blood Pressure BP Systolic BP Diastolic Pulse Ox Weight Weight: 171 lb Body Mass Index (BMI) 29.3 Physical Exam Const alert, oriented x3 and no apparent distress General Appearance: cooperative Orientation / Consciousness: awake Exam Limitations: no limitations HEENT normocephalic Head and Scalp: normal to inspection Eyes General Eye: normal appearance of both eyes Neck full ROM and no lymphadenopathy Lymph Lymphatic: no lymphadenopathy noted Chest inspection of chest normal Resp normal respiratory effort, normal air movement and clear to auscultation bilaterally Effort and Inspection: able to speak in complete sentences and symmetric chest movement Cardio regular rate and regular rhythm GI normal to inspection, nondistended, normoactive bowel sounds Back/Spine normal ROM Extremity full ROM and no calf tenderness Skin no rashes or lesions noted General Skin Exam: no breakdown Neuro oriented x3 and CN's II-XII intact bilaterally Psych mental status grossly normal and thought process normal Labs Labs Labs: Blood Type A POSITIVE Antibody Screen NEGATIVE Hct 31.4 % (37-47) L Hgb 11.0 g/dL (12.0-15.0) L Rhogam given: Yes GBS negative Assessment & Plan (1) 36 to 37 weeks gestation of : (2) Headache in , antepartum: (3) Changes in vision: (4) Polyhydramnios: (5) History of vacuum extraction assisted delivery: (6) Anemia: (7) Pre-eclampsia: PLAN: Plan PIH labs- completed- P/C ratio 406 Fioricet 2 tabs PO x 1 now No severe blood pressures since arrival Due to current severe headache with vision changes and elevated blood pressures out of patient's normal, history of preeclampsia- admitted for induction of labor per Dr. Rubio CE 1.5/70/-2 Clark bulb placed without difficulty and filled with 30 cc N/S Dr. Rubio collaborating physician and involved with plan of care
[2023-03-21] MEDS: 0.9% Normal Saline Single 100 ML IV.SOLN. INTRA-UTER (17:57)
--- OUTSIDE RECORDS SUMMARY | 2023-03-21 18:30 | XMS RPT_ITS | CCD ---
Author Name Unknown Address [address] [place] [address] Organization [facility] Care Team Providers Care Bilingual Operator Name Role Phone Queden BEAUTY THERAPIST.[place] Mari A Primary Care Provider PROVIDER, UNKNOWN Referring Unavailable QUEDEN, MARI A Primary Care Unavailable QUEDEN, MARI A Primary Care Unavailable QUINN ISLAS Attending Unavailable Queden BEAUTY THERAPIST.[place] Mari A Primary Care Provider QUEDEN, MARI A Primary Care Unavailable QUEDEN, MARI A Attending Unavailable QUEDEN, MARI A Referring Unavailable QUEDEN, MARI A Primary Care Unavailable QUEDEN, MARI A Attending Unavailable QUEDEN, MARI A Primary Care Unavailable WISWELL, VANESSA Referring Unavailable QUEDEN, MARI A Primary Care Unavailable QUEDEN, MARI A Referring Unavailable QUEDEN, MARI A Primary Care Unavailable ALEX COBURN Attending Unavailable QUEDEN, MARI A Primary Care Unavailable QUEDEN, MARI A Attending Unavailable QUEDEN, MARI A Primary Care Unavailable QUEDEN, MARI A Primary Care Unavailable BARB TAYLOR Attending Unavailable QUEDEN, MARI A Primary Care Unavailable WISWELL, VANESSA Referring Unavailable QUEDEN, MARI A Primary Care Unavailable VIANEY, HILTON L Attending Unavailable QUEDEN, MARI A Primary Care Unavailable MARIETTA GOEL Attending Unavailable QUEDEN, MARI A Primary Care Unavailable ALANA DOUGHERTY Attending Unavailable QUEDEN, MARI A Primary Care Unavailable VIANEY, HILTON L Referring Unavailable VIANEY, HILTON L Attending Unavailable QUEDEN, MARI A Primary Care Unavailable VIANEY, HILTON L Referring Unavailable QUEDEN, MARI A Primary Care Unavailable ALANA DOUGHERTY Referring Unavailable QUEDEN, MARI A Primary Care Unavailable MARIETTA GOEL Attending Unavailable QUEDEN, MARI A Primary Care Unavailable QUEDEN, MARI A Primary Care Unavailable MARIETTA GOEL Attending Unavailable QUEDEN, MARI A Primary Care Unavailable VIANEY HILTON Carolin Referring Unavailable QUEDEN, MARI A Primary Care Unavailable WISANN MARIE, VANESSA Attending Unavailable QUEDEN, MARI A Primary Care Unavailable VIANEY, HILTON L Referring Unavailable QUEDEN, MARI A Primary Care Unavailable MARIETTA GOEL Attending Unavailable QUEDEN, MARI A Primary Care Unavailable QUEDEN, MARI A Primary Care Unavailable VIANEY HILTON L Referring Unavailable WISWELL, VANESSA Attending Unavailable QUEDEN, MARI A Primary Care Unavailable VIANEY HILTON L Referring Unavailable QUEDEN, MARI A Primary Care Unavailable ILSA WINTERSECCA L Attending Unavailable QUEDEN, MARI A Primary Care Unavailable HELEN DOW Attending Unavailable QUEDEN, MARI A Primary Care Unavailable QUEDEN, MARI A Primary Care Unavailable MARIETTA GOEL Attending Unavailable QUEDEN, MARI A Primary Care Unavailable QUEDEN, MAIR A Primary Care Unavailable WISWELL, VANESSA Attending Unavailable QUEDEN, MARI A Primary Care Unavailable WISWELL, VANESSA Referring Unavailable QUEDEN, MARI A Primary Care Unavailable ALANA DOUGHERTY Attending Unavailable QUEDEN, MARI A Primary Care Unavailable ALANA DOUGHERTY Referring Unavailable QUEDEN, MARI A Primary Care Unavailable ALANA DOUGHERTY Attending Unavailable QUEDEN, MARI A Primary Care Unavailable ALANA DOUGHERTY Attending Unavailable Allergies Allergy Classification Reported Allergen(s) Allergy Type Date of Onset Reaction(s) Facility (20 sources) sulfaSALAzine; Translations: [SULFASALAZINE] Drug Allergy 09-06-2015 [facility] Work Phone: (20 sources) Sulfonamides (Antibiotic); Translations: [SULFA (SULFONAMIDE ANTIBIOTICS)] Drug Allergy 09-05-2016 [facility] Medications Current Medications Medication Drug Class(es) Dates Sig (Normalized) Sig (Original) amoxicillin 500 mg oral capsule (2 sources) Penicillin-class Antibacterial Start: 08-29-2022 End: 09-03-2022 take 2 capsules by mouth three times daily amoxicillin (AMOXIL) 500 mg capsule Take 2 capsules by mouth three times daily for 5 days. 30 capsule 0 08/29/2022 09/03/2022 Active Completed/Discontinued Medications Medication Drug Class(es) Dates Sig (Normalized) Sig (Original) acetaminophen 325 mg oral tablet (20 sources) take 2 tablets by mouth every six hours as needed acetaminophen (TYLENOL) 325 mg tablet Take 650 mg by mouth every 6 hours as needed. 0 Active Problems Active Problems Problem Classification Problem Date Documented Date Episodic/Chronic Abdominal pain (8 sources) Pain in pelvis; Translations: [Pelvic and perineal pain] Onset: 02-08-2022 Episodic Anxiety disorders (20 sources) Generalized anxiety disorder; Translations: [Generalized anxiety disorder] Onset: 08-05-2018 08-05-2018 Chronic Headache; including migraine (20 sources) Refractory migraine without aura; Translations: [Migraine without aura, intractable, without status migrainosus] Onset: 08-05-2018 08-05-2018 Chronic Immunizations and screening for infectious disease (6 sources) Patient encounter status; Translations: [Encounter for screening for human papillomavirus (HPV)] Onset: 01-19-2023 Episodic Menstrual disorders (20 sources) Dysmenorrhea; Translations: [Dysmenorrhea, unspecified] Onset: 09-06-2015 09-19-2019 Chronic Nutritional deficiencies (20 sources) Vitamin D deficiency; Translations: [Vitamin D deficiency, unspecified] Onset: 05-11-2022 Chronic Other complications of (2 sources) Anemia in mother complicating , childbirth AND/OR puerperium; Translations: [Anemia complicating , third trimester] Onset: 01-15-2023 01-15-2023 Chronic Other complications of (1 source) Anemia complicating , third trimester; Translations: [Anemia complicating , third trimester] Onset: 01-15-2023 Chronic Other complications of (1 source) Pain in female pelvis; Translations: [Other specified related conditions, unspecified trimester] Episodic Other complications of (4 sources) High risk ; Translations: [Supervision of high risk , unspecified, second trimester] Onset: 02-02-2023 01-08-2023 Episodic Other complications of (1 source) Excessive growth affecting management of mother; Translations: [Maternal care for excessive growth, third trimester, not applicable or unspecified] 03-16-2023 Episodic Other complications of (1 source) Supervision of high risk , unspecified, third trimester; Translations: [Supervision of high risk in third trimester] Onset: 03-02-2023 Episodic Other complications of (1 source) Uterine size-date discrepancy, third trimester; Translations: [Uterine size-date discrepancy, third trimester] Onset: 03-02-2023 Episodic Other complications of (1 source) Decreased movements, second trimester, not applicable or unspecified; Translations: [Decreased movements in second trimester, single or unspecified fetus] Onset: 02-20-2023 Episodic Other complications of (1 source) Supervision of high risk , unspecified, second trimester; Translations: [Supervision of high risk in second trimester] Onset: 01-12-2023 Episodic Other complications of (1 source) Uterine size-date discrepancy, second trimester; Translations: [Uterine size-date discrepancy, second trimester] Onset: 01-12-2023 Episodic Other lower respiratory disease (1 source) Dyspnea; Translations: [Shortness of breath] 09-08-2022 Episodic Other nutritional; endocrine; and metabolic disorders (1 source) Weight gain; Translations: [Abnormal weight gain] Episodic Other upper respiratory infections (1 source) Sore throat symptom; Translations: [Acute pharyngitis, unspecified] 11-12-2022 Episodic Ovarian cyst (1 source) Complex ovarian cyst; Translations: [Other ovarian cyst, unspecified side] Episodic Polyhydramnios and other problems of amniotic cavity (2 sources) Polyhydramnios; Translations: [Polyhydramnios, third trimester, not applicable or unspecified] Onset: 03-02-2023 03-16-2023 Episodic Residual codes; unclassified (1 source) 8 weeks gestation of ; Translations: [8 weeks gestation of ] Onset: 08-29-2022 Episodic Residual codes; unclassified (1 source) Gestation period, 10 weeks; Translations: [10 weeks gestation of ] 09-08-2022 Episodic Residual codes; unclassified (1 source) Gestation period, 12 weeks; Translations: [12 weeks gestation of ] 10-02-2022 Episodic Residual codes; unclassified (1 source) Gestation period, 13 weeks; Translations: [13 weeks gestation of ] 10-09-2022 Episodic Residual codes; unclassified (1 source) Gestation period, 22 weeks; Translations: [22 weeks gestation of ] 12-11-2022 Episodic Residual codes; unclassified (2 sources) ultrasound scan abnormal; Translations: [Pyelectasis of fetus on ultrasound] 12-11-2022 Episodic Residual codes; unclassified (2 sources) 22 weeks gestation of ; Translations: [22 weeks gestation of ] Onset: 12-21-2022 Episodic Residual codes; unclassified (1 source) Gestation period, 26 weeks; Translations: [26 weeks gestation of ] 01-08-2023 Episodic Residual codes; unclassified (1 source) Gestation period, 28 weeks; Translations: [28 weeks gestation of ] 01-19-2023 Episodic Residual codes; unclassified (1 source) Gestation period, 36 weeks; Translations: [36 weeks gestation of ] 03-16-2023 Episodic Residual codes; unclassified (1 source) 32 weeks gestation of ; Translations: [32 weeks gestation of ] Onset: 02-20-2023 Episodic Residual codes; unclassified (1 source) 28 weeks gestation of ; Translations: [28 weeks gestation of ] Onset: 01-19-2023 Episodic Residual codes; unclassified (1 source) 26 weeks gestation of ; Translations: [26 weeks gestation of ] Onset: 01-12-2023 Episodic Residual codes; unclassified (1 source) 27 weeks gestation of ; Translations: [27 weeks gestation of ] Onset: 01-12-2023 Episodic Unclassified (2 sources) Pyelectasis of fetus on ultrasound; Translations: [Pyelectasis of fetus on ultrasound] Onset: 12-21-2022 Unclassified (1 source) Acute bilateral low back pain, unspecified whether sciatica present; Translations: [Acute bilateral low back pain, unspecified whether sciatica present] Onset: 01-12-2023 Viral infection (1 source) Viral disease; Translations: [Viral infection, unspecified] Episodic Past or Other Problems Problem Classification Problem Date Documented Da te Episodic/Chronic Other complications of (19 sources) History of pre-eclampsia; Translations: [Supervision of with other poor reproductive or obstetric history, unspecified trimester] Onset: 08-07-2022 Episodic Other complications of (18 sources) Nausea and vomiting; Translations: [Vomiting of , unspecified] Onset: 01-16-2019 Episodic Other complications of (2 sources) Other specified related conditions, unspecified trimester; Translations: [Pelvic pain in ] Onset: 08-10-2022 Episodic Other complications of (1 source) with inconclusive viability, not applicable or unspecified; Translations: [ of unknown anatomic location] Onset: 10-02-2022 Episodic Other connective tissue disease (20 sources) Diastasis recti; Translations: [Separation of muscle (nontraumatic), other site] Onset: 10-23-2019 10-23-2019 Episodic Other lower respiratory disease (18 sources) History of bacterial infection; Translations: [Personal history of other diseases of the respiratory system] Onset: 08-07-2022 Episodic Other lower respiratory disease (2 sources) Shortness of breath; Translations: [Shortness of breath] Onset: 08-29-2022 Episodic Other nutritional; endocrine; and metabolic disorders (1 source) Abnormal weight gain; Translations: [Weight gain] Onset: 05-15-2022 Episodic Other and delivery including normal (8 sources) Normal ; Translations: [Encounter for supervision of normal first , second trimester] Onset: 09-04-2022 10-02-2022 Episodic Other screening for suspected conditions (not mental disorders or infectious disease) (2 sources) Cancer cervix screening status; Translations: [Encounter for screening for malignant neoplasm of cervix] Onset: 10-02-2022 Episodic Pneumonia (except that caused by tuberculosis or sexually transmitted disease) (2 sources) Pneumonia, unspecified organism; Translations: [Community acquired pneumonia of right lower lobe of lung] Onset: 08-29-2022 Episodic Residual codes; unclassified (1 source) 12 weeks gestation of ; Translations: [12 weeks gestation of ] Onset: 10-09-2022 Episodic Screening and history of mental health and substance abuse codes (20 sources) H/O: anxiety state; Translations: [Personal history of other mental and behavioral disorders] Onset: 01-16-2019 01-16-2019 Episodic Results Test Name Value Interpretation Reference Range Facil ity Vital Signs Date Time Vital Sign Value Performing Clinician Osmar reed 03-16-2023 15:15-0500 Body weight 77.29 kg Alana Plotzahida EM Work Phone: [facility] 03-16-2023 15:15-0500 Diastolic blood pressure 66 mm[Hg] Alana Dougherty BEAUTY THERAPIST.CNM Work Phone: [facility] 03-16-2023 15:15-0500 Systolic blood pressure 110 mm[Hg] Alana Dougherty BEAUTY THERAPIST.CNM Work Phone: [facility] 01-19-2023 16:17-0500 Body weight 77.11 kg Vanessa Banuelos MD Work Phone: [facility] 01-19-2023 16:17-0500 Diastolic blood pressure 64 mm[Hg] Vanessa Banuelos MD Work Phone: [facility] 01-19-2023 16:17-0500 Systolic blood pressure 100 mm[Hg] Vanessa Banuelos MD Work Phone: [facility] 01-08-2023 16:25-0500 Body weight 77.11 kg Hilton Winters MD Work Phone: [facility] 01-08-2023 16:25-0500 Diastolic blood pressure 60 mm[Hg] Hilton Winters MD Work Phone: [facility] 01-08-2023 16:25-0500 Systolic blood pressure 102 mm[Hg] Hilton Winters MD Work Phone: [facility] 12-11-2022 15:43-0400 Body weight 74.39 kg Vanessa Banuelos MD Work Phone: [facility] 12-11-2022 15:43-0400 Diastolic blood pressure 64 mm[Hg] Vanessa Banuelos MD Work Phone: [facility] 12-11-2022 15:43-0400 Systolic blood pressure 110 mm[Hg] Vanessa Banuelos MD Work Phone: [facility] 11-12-2022 08:57-0400 Body temperature 98.8 [degF] Cindy Goel APRN.PUZZLE ASSEMBLER Work Phone: [facility] 11-12-2022 08:57-0400 Body weight 72.39 kg Cindy Goel APRN.PUZZLE ASSEMBLER Work Phone: [facility] 11-12-2022 08:57-0400 Diastolic blood pressure 80 mm[Hg] Cindy Goel BEAUTY THERAPIST.PUZZLE ASSEMBLER Work Phone: [facility] 11-12-2022 08:57-0400 Heart rate 91 /min Cindy Goel APRN.PUZZLE ASSEMBLER Work Phone: [facility] 11-12-2022 08:57-0400 Respiratory rate 18 /min Cindy Goel APRN.PUZZLE ASSEMBLER Work Phone: [facility] 11-12-2022 08:57-0400 SaO2% (BldA) [Mass fraction] 99 % Cindy Goel BEAUTY THERAPIST.PUZZLE ASSEMBLER Work Phone: [facility] 11-12-2022 08:57-0400 Systolic blood pressure 118 mm[Hg] Cindy Goel BEAUTY THERAPIST.PUZZLE ASSEMBLER Work Phone: [facility] 10-02-2022 10:56-0400 Body weight 71.94 kg Alana Gabrielzahida BEAUTY THERAPIST.CNM Work Phone: [facility] 10-02-2022 10:56-0400 Diastolic blood pressure 72 mm[Hg] Alana Plotts BEAUTY THERAPIST.CNM Work Phone: [facility] 10-02-2022 10:56-0400 Systolic blood pressure 110 mm[Hg] Alana Plotts BEAUTY THERAPIST.CNM Work Phone: [facility] 09-08-2022 08:13-0400 Body height 161.3 cm Mari Queden BEAUTY THERAPIST.PUZZLE ASSEMBLER Work Phone: [facility] 09-08-2022 08:13-0400 Body temperature 98.1 [degF] Mari Queden BEAUTY THERAPIST.PUZZLE ASSEMBLER Work Phone: [facility] 09-08-2022 08:13-0400 Body weight 71.22 kg Mari Queden BEAUTY THERAPIST.PUZZLE ASSEMBLER Work Phone: [facility] 09-08-2022 08:13-0400 Diastolic blood pressure 62 mm[Hg] Mari Queden BEAUTY THERAPIST.PUZZLE ASSEMBLER Work Phone: [facility] 09-08-2022 08:13-0400 Heart rate 79 /min Mari Queden BEAUTY THERAPIST.PUZZLE ASSEMBLER Work Phone: [facility] 09-08-2022 08:13-0400 Respiratory rate 17 /min Mari Queden BEAUTY THERAPIST.PUZZLE ASSEMBLER Work Phone: [facility] 09-08-2022 08:13-0400 SaO2% (BldA) [Mass fraction] 98 % Mari Queden BEAUTY THERAPIST.PUZZLE ASSEMBLER Work Phone: [facility] 09-08-2022 08:13-0400 Systolic blood pressure 116 mm[Hg] Mari Queden BEAUTY THERAPIST.PUZZLE ASSEMBLER Work Phone: [facility] 05-11-2022 09:47-0400 Body height 161.3 cm Mari Queden BEAUTY THERAPIST.PUZZLE ASSEMBLER Work Phone: [facility] 05-11-2022 09:47-0400 Body temperature 98.29 [degF] Mari Queden BEAUTY THERAPIST.PUZZLE ASSEMBLER Work Phone: [facility] 05-11-2022 09:47-0400 Body weight 69.4 kg Mari Queden BEAUTY THERAPIST.PUZZLE ASSEMBLER Work Phone: [facility] 05-11-2022 09:47-0400 Diastolic blood pressure 66 mm[Hg] Mari Queden BEAUTY THERAPIST.PUZZLE ASSEMBLER Work Phone: [facility] 05-11-2022 09:47-0400 Heart rate 91 /min Mari Queden BEAUTY THERAPIST.PUZZLE ASSEMBLER Work Phone: [facility] 05-11-2022 09:47-0400 Respiratory rate 18 /min Mari Queden BEAUTY THERAPIST.PUZZLE ASSEMBLER Work Phone: [facility] 05-11-2022 09:47-0400 SaO2% (BldA) [Mass fraction] 98 % Mari Queden BEAUTY THERAPIST.PUZZLE ASSEMBLER Work Phone: [facility] 05-11-2022 09:47-0400 Systolic blood pressure 104 mm[Hg] Mari Brunoumu BEAUTY THERAPIST.PUZZLE ASSEMBLER Work Phone: [facility] 02-08-2022 07:34-0500 Body height 161.3 cm Barb Ana M BEAUTY THERAPIST.PUZZLE ASSEMBLER Work Phone: [facility] 02-08-2022 07:34-0500 Body temperature 97.59 [degF] Barb Ana M BEAUTY THERAPIST.PUZZLE ASSEMBLER Work Phone: [facility] 02-08-2022 07:34-0500 Body weight 68.67 kg Barb Ana M BEAUTY THERAPIST.PUZZLE ASSEMBLER Work Phone: [facility] 02-08-2022 07:34-0500 Diastolic blood pressure 60 mm[Hg] Barb Ana M BEAUTY THERAPIST.PUZZLE ASSEMBLER Work Phone: [facility] 02-08-2022 07:34-0500 Heart rate 90 /min Barb Ana M BEAUTY THERAPIST.PUZZLE ASSEMBLER Work Phone: [facility] 02-08-2022 07:34-0500 Respiratory rate 18 /min Barb Ana M BEAUTY THERAPIST.PUZZLE ASSEMBLER Work Phone: [facility] 02-08-2022 07:34-0500 SaO2% (BldA) [Mass fraction] 98 % Barb Ana M BEAUTY THERAPIST.PUZZLE ASSEMBLER Work Phone: [facility] 02-08-2022 07:34-0500 Systolic blood pressure 110 mm[Hg] Barb Ana M BEAUTY THERAPIST.PUZZLE ASSEMBLER Work Phone: [facility] 11-23-2021 14:22-0400 Body temperature 99.19 [degF] Vipul Pendmervatbury BEAUTY THERAPIST.PUZZLE ASSEMBLER Work Phone: [facility] 11-23-2021 14:22-0400 Body weight 68.4 kg Vipul East BEAUTY THERAPIST.PUZZLE ASSEMBLER Work Phone: [facility] 11-23-2021 14:22-0400 Diastolic blood pressure 62 mm[Hg] Vipul Pendlebury BEAUTY THERAPIST.PUZZLE ASSEMBLER Work Phone: [facility] 11-23-2021 14:22-0400 Heart rate 94 /min Vipul Kita BEAUTY THERAPIST.PUZZLE ASSEMBLER Work Phone: [facility] 11-23-2021 14:22-0400 Respiratory rate 21 /min Vipul Kita BEAUTY THERAPIST.PUZZLE ASSEMBLER Work Phone: [facility] 11-23-2021 14:22-0400 SaO2% (BldA) [Mass fraction] 99 % Vipul East BEAUTY THERAPIST.PUZZLE ASSEMBLER Work Phone: [facility] 11-23-2021 14:22-0400 Systolic blood pressure 104 mm[Hg] Vipul East BEAUTY THERAPIST.PUZZLE ASSEMBLER Work Phone: [facility] 08-10-2021 13:04-0400 Body height 161.5 cm Indira Cynthia BEAUTY THERAPIST.PUZZLE ASSEMBLER Work Phone: [facility] 08-10-2021 13:04-0400 Body weight 68.31 kg Indira Rand BEAUTY THERAPIST.PUZZLE ASSEMBLER Work Phone: [facility] 08-10-2021 13:04-0400 Diastolic blood pressure 58 mm[Hg] Indira Rand BEAUTY THERAPIST.PUZZLE ASSEMBLER Work Phone: [facility] 08-10-2021 13:04-0400 Systolic blood pressure 102 mm[Hg] Indira Cynthia BEAUTY THERAPIST.PUZZLE ASSEMBLER Work Phone: [facility] Encounters Encounter Date Encounter Type Care Provider Facility Start: 03-16-2023 End: 03-16-2023 ambulatory MARI OCHOA Facility:[facility] Start: 03-16-2023 End: 03-16-2023 Patient encounter procedure Alana Dougherty BEAUTY THERAPIST.CNM Work Phone: OB/Gynecology Procedures Date Procedure Procedure Detail Performing Clinician Start: 03-16-2023 URINE OB DIP B/O Eliseo Dougherty BEAUTY THERAPIST.CNM Work Phone: Start: 01-19-2023 URINE OB DIP B/O Vanessa young MD Work Phone: Start: 01-08-2023 INFLUENZA VACCINE, A GE 6 MO - 64 YR, QUADRIVALENT (AFLURIA, FLULAVAL, FLUZONE) Hilton Winters MD Work Phone: Start: 01-08-2023 URINE OB DIP B/O Jaja Winters MD Work Phone: Start: 12-11-2022 URINE OB DIP B/O Vanessa young MD Work Phone: Start: 11-12-2022 STREP A MOLECULAR (POC) Becky Monge BEAUTY THERAPIST.PUZZLE ASSEMBLER Work Phone: Start: 10-09-2022 Us nuchal translucency 1st gestation Alana Dougherty BEAUTY THERAPIST.CNM Work Phone: Start: 10-02-2022 Antibody screen MARI HANLEYUMU Plan of Treatment Date Care Activity Detail Author Start: 01-19-2033 Urine microalbumin profile DTa P,Tdap,Td Vaccine (11 - Td or Tdap) [facility] Start: 06-19-2029 Urine microalbumin profile [facility] Start: 08-10-2026 HPV TESTING HPV TESTING [facility] Start: 08-10-2026 PAP TESTING PAP TESTING [facility] Start: 08-10-2026 Screening for malign ant neoplasm of cervix [facility] Start: 07-02-2023 PAP TESTING PAP TESTING [facility] Start: 05-12-2023 COVID-19 VACCINE (4 - Booster for Pfizer series) COVID-19 VACCINE (4 - Booster for Pfizer series) [facility] Immunizations Immunization Date Immunization Notes Care Provider Fa cility 03-02-2023 respiratory syncytia l virus (RSV) vaccine, bivalent (ABRYSVO) Alana Dougherty BEAUTY THERAPIST.CNM Work Phone: [facility] 01-19-2023 tetanus toxoid, redu silvestre diphtheria toxoid, and acellular pertussis vaccine, adsorbed Vanessa Banuelos MD Work Phone: [facility] 01-08-2023 influenza, injectabl e, quadrivalent, contains preservative Hilton Winters MD Work Phone: [facility] 06-01-2020 COVID-19 vaccine, ag e 12+ yr (PFIZER-BIONTECH - PURPLE TOP) [facility] Work Phone: 05-11-2020 COVID-19 vaccine, ag e 12+ yr (PFIZER-BIONTECH - PURPLE TOP) [facility] Work Phone: 01-16-2020 influenza virus vacc ine, unspecified formulation [facility] 12-22-2019 Seasonal, quadrivale nt, recombinant, injectable influenza vaccine, preservative free [facility] 06-20-2019 tetanus toxoid, redu silvestre diphtheria toxoid, and acellular pertussis vaccine, adsorbed [facility] 06-02-2019 tetanus toxoid, redu silvestre diphtheria toxoid, and acellular pertussis vaccine, adsorbed [facility] 10-14-2018 influenza, seasonal, injectable [facility] 08-05-2018 tetanus toxoid, redu silvestre diphtheria toxoid, and acellular pertussis vaccine, adsorbed [facility] 06-25-2008 hepatitis A vaccine, unspecified formulation [facility] 06-25-2008 hepatitis B vaccine, pediatric or pediatric/adolescent dosage [facility] 06-25-2008 meningococcal polysaccharide (groups A, C, Y and W-135) diphtheria toxoid conjugate vaccine (MCV4P) [facility] 06-25-2008 tetanus toxoid, redu silvestre diphtheria toxoid, and acellular pertussis vaccine, adsorbed [facility] 06-25-2008 hepatitis B vaccine, unspecified formulation Indira Marie APRN.CNP Work Phone: [facility] 09-24-2002 measles, mumps and rubella virus vaccine [facility] 03-09-1995 diphtheria, tetanus toxoids and acellular pertussis vaccine, unspecified formulation [facility] 03-09-1995 poliovirus vaccine, unspecified formulation [facility] 02-27-1992 diphtheria, tetanus toxoids and acellular pertussis vaccine, unspecified formulation [facility] 02-27-1992 poliovirus vaccine, unspecified formulation [facility] 08-22-1991 haemophilus influenz ae type b vaccine, conjugate unspecified formulation [facility] 08-22-1991 measles, mumps and rubella virus vaccine [facility] 1990 diphtheria, tetanus toxoids and pertussis vaccine [facility] 1990 haemophilus influenz ae type b vaccine, conjugate unspecified formulation [facility] 1990 diphtheria, tetanus toxoids and pertussis vaccine [facility] 1990 haemophilus influenz ae type b vaccine, conjugate unspecified formulation [facility] 1990 poliovirus vaccine, unspecified formulation [facility] 1990 diphtheria, tetanus toxoids and pertussis vaccine [facility] 1990 haemophilus influenz ae type b vaccine, conjugate unspecified formulation [facility] 1990 poliovirus vaccine, unspecified formulation [facility] Payers Date Payer Category Payer Unknown [id number] 2021 Unknown MMO MMO [employer] [id number] 2021-Present [phone] [address] [place] [address] O [id number] 2021 Unknown [id number] 2021 Unknown [id number] Social History Date Type Detail Facility Start: 02-27-2017 End: 11-23-2021 Tobacco smoking status NHIS Ex-smoker [facility] End: 11-26-2018 History of tobacco use Current smoker [facility] End: 11-26-2018 History of tobacco use Cigarette Smoker [facility] Start: 02-27-2017 End: 06-22-2022 Cigarettes smoked current (pack per day) - Reported 0.5 [facility] Start: 02-27-2017 End: 11-23-2021 Tobacco use and exposure Smokeless tobacco non-user [facility] Start: 04-18-2021 End: 06-21-2022 Alcohol intake Current drinker of alcohol (finding) [facility] Start: 09-18-2019 End: 09-30-2020 History SDOH Alcohol Frequency 2 [facility] Start: 09-18-2019 End: 09-30-2020 History SDOH Alcohol Std Drinks 1 [facility] Start: 01-05-2019 History SDOH Alcohol Comment social [facility] Start: 12-30-2018 History SDOH Social Connections Phone 4 [facility] Start: 12-30-2018 History SDOH Social Connections Living 3 [facility] Start: 12-30-2018 End: 09-18-2019 History SDOH Physical Activity DPW 5 [facility] Start: 12-30-2018 Education 15 [facility] Start: 1990 Sex Assigned At Not on file [facility] Start: 04-30-2021 End: 11-23-2021 Exposure to SARS-CoV-2 (event) Not sure [facility] Start: 08-07-2022 End: 03-16-2023 Alcohol intake Ex-drinker (finding) [facility] Start: 07-20-2022 [facility] Start: 12-30-2018 End: 06-22-2022 Social connection and isolation panel [facility] Do you belong to any clubs or organizations such as anabaptist groups, unions, fraternal or athletic groups, or school groups? No [facility] Are you now , , , , never or living with a partner? [facility] How often to you hav e a drink containing alcohol? Monthly or less [facility] Work Phone: How many standard dr inks containing alcohol do you have on a typical day? 1 or 2 [facility] Work Phone: How often do you hav e 6 or more drinks on 1 occasion? Never [facility] Work Phone: How hard is it for y ou to pay for the very basics like food, housing, medical care, and heating Not hard at all [facility] Do you feel stress - tense, restless, nervous, or anxious, or unable to sleep at night because your mind is troubled all the time - these days [OSQ] To some extent [facility] (I/We) worried wheth er (my/our) food would run out before (I/we) got money to buy more. Never true [facility] Goals Date Patient Goal Desired Activity /State Personal health goal Clinical Notes 06-23-2019 to 03-16-2023 Quick Notes - Alana Dougherty APRN.CNM - 03/16/2023 3:29 PM ESTPatient InstructionsPrenatal Quick Notes - Vanessa Banuelos MD - 01/19/2023 4:38 PM ESTPatient InstructionsPatient Instructions Note Date & Type Note Facility 03-16-2023 Miscellaneous Notes Meredith Marcelino is a 32 year old female who presents at 36w1d for a routine visit. Good movement. Denies headache, visual changes, chest pain, shortness of breath, vaginal bleeding, leakage of fluid, or dysuria. Continues to have acid reflux with no relief from Pepcid. Will try Protonix 40 mg PO daily. 16 lbs TWG. ASSESSMENT/PLAN: 1. 36 weeks gestation of - ICD9: V22.2, ICD10: Z3A.36 (primary diagnosis) 2. Supervision of high risk in third trimester - ICD9: V23.9, ICD10: O09.93 3. JIN (generalized anxiety disorder) - ICD9: 300.02, ICD10: F41.1 4. Excessive growth affecting management of in third trimester, single or unspecified fetus - ICD9: 656.63, ICD10: O36.63X0 5. Polyhydramnios in third trimester complication, single or unspecified fetus - ICD9: 657.03, ICD10: O40.3XX0 - Reviewed growth US from 2 weeks ago- EFW 93%, HAWA 25 - Having some anxiety over delivery plan due to hx of vacuum and current LGA diagnosis - Repeat Growth US for 03/30/23 - Questions answered and support provided - URINE OB DIP B/O - ROUTINE, GROUP B STREP PCR PTL precautions reviewed. RTC in 1 week Alana Dougherty APRN.CNM documented in this encounter [facility] 03-16-2023 Instructions Brandon Plummer Cma - 03/16/2023 3:15 PM EST SEQUENTIAL SCREENINGS The [facility] offers sequential screenings for women who are interested in screenings for chromosomal abnormalities and certain defects during a . The sequential screen combines ultrasound and blood tests to determine the risk of chromosomal abnormalities, including Down's Syndrome (Trisomy 21) and Trisomy 18, as well as open neural tube defects including spina bifida. Ultrasound examination is performed between 11 weeks and 13 weeks gestational age. Blood tests are drawn after the ultrasound and again later in the between 15 and 21 weeks gestational age. Please let your physician know if you are interested in this testing. It will require an appointment with our transport tank technician. This is not an ultrasound performed by a physician in our office during a routine visit. SIGNS AND SYMPTOMS OF LABOR 1. Contractions every 10 minutes or more often 2. Clear, pink, or brownish fluid (water) leaking from vagina 3. Feeling that baby is pushing down, pressure 4. Low, dull backache 5. Cramps that feel like a period 6. Cramps with or without diarrhea If you notice any of the above symptoms, contact our office at [phone] and ask to speak with a nurse. After hours, you can call doctors registry at [phone] OR call [facility] at [phone] and ask to have the doctor computer operations specialist paged. If you consider this an emergency, dial 9-1-2 or go to your nearest emergency department. NEED HELP? Are you dealing with a violent or abusive relationship? Are you a victim of rape or sexual assult? Call [facility] ([place]) 24 hour Crisis Hotline: 230.620.7087 or 818-654-2650. MANUAL Your Guide to a Healthy manual is now on-line. Visit [email or web address] to download your free copy documented in this encounter [facility] 02-20-2023 Note HNO ID: [id number] Author: MARIETTA GOEL MD Service: ? Author Type: Physician Type: Progress Notes Filed: 02/20/2023 12:15 Note Text: NST SUMMARY PROVIDER ASSESSMENT AND INTERPRETATION Meredith Marcelino is a 32 year old female, , who is at 32w5d with an TATI of 04/12/2023, by Last Menstrual Period dating method. Indications for NST: Decreased Movement Baseline: 130 Variability: Moderate Accelerations: Present 15 X 15 Decelerations: None Contractions: TOCO: None Interpretation: Reactive SIGNATURE: Marietta Goel MD [facility] 01-19-2023 Note HNO ID: [id number] Author: Aria Carrington MA Service: ? Author Type: Commercial Credit Lead Type: Progress Notes Filed: 01/25/2023 10:23 AM Note Text: Patient identified by name and date of . Meredith Marcelino presents today for a vaccination of Tdap. Patient denies an allergy to latex: yes Patient denies a severe (life-threatening) allergy to a previous dose of Tdap, DTP, DTaP, DT or Td vaccine. Yes Patient denies history of epilepsy or neurological problems: Yes Patient is afebrile and denies being moderately or severely ill: Yes Patient denies history of Guillain-Ottum[place] Syndrome (a severe paralytic illness): Yes Tdap Adacel injection was given without incident. See immunizations for details of immunizations administered today. VIS sheet provided: Yes Provider Vanessa Banuelos DO was present in office at time of injection. Aria Carrington MA [facility] 01-19-2023 Miscellaneous Notes SW- Pt doing well. Still having bilateral low back pain and some pelvic discomfort. No vb, lof. No urinary symptoms. No discharge. Good FM. PE: Gen- NAD, well appearing, comfortable Abd- Soft, gravid, NT, S>D See flowsheet A/p 28 wk gestation - Tdap today - S>D and growth US scheduled - Discussed pain likely MSK and reviewed Tylenol PRN, career services assistant, massage therapy, pelvic floor PT, belly support belt - She is planning on completing 28 wk labs tomorrow - Rh positive - RTO 2 wks Vanessa Banuelos DO documented in this encounter [facility] 01-19-2023 History of Presen t illness Narrative Patient identified by name and date of . Meredith Hendricks Burton presents today for a vaccination of Tdap. Patient denies an allergy to latex: yes Patient denies a severe (life-threatening) allergy to a previous dose of Tdap, DTP, DTaP, DT or Td vaccine. Yes Patient denies history of epilepsy or neurological problems: Yes Patient is afebrile and denies being moderately or severely ill: Yes Patient denies history of Guillain-Ottum[place] Syndrome (a severe paralytic illness): Yes Tdap Adacel injection was given without incident. See immunizations for details of immunizations administered today. VIS sheet provided: Yes Provider Vanessa Banuelos DO was present in office at time of injection. Aria Carrington MA documented in this encounter [facility] 01-19-2023 Instructions Aria Carrington MA - 01/19/2023 4:14 PM EST SEQUENTIAL SCREENINGS The [facility] offers sequential screenings for women who are interested in screenings for chromosomal abnormalities and certain defects during a . The sequential screen combines ultrasound and blood tests to determine the risk of chromosomal abnormalities, including Down's Syndrome (Trisomy 21) and Trisomy 18, as well as open neural tube defects including spina bifida. Ultrasound examination is performed between 11 weeks and 13 weeks gestational age. Blood tests are drawn after the ultrasound and again later in the between 15 and 21 weeks gestational age. Please let your physician know if you are interested in this testing. It will require an appointment with our transport tank technician. This is not an ultrasound performed by a physician in our office during a routine visit. SIGNS AND SYMPTOMS OF LABOR 1. Contractions every 10 minutes or more often 2. Clear, pink, or brownish fluid (water) leaking from vagina 3. Feeling that baby is pushing down, pressure 4. Low, dull backache 5. Cramps that feel like a period 6. Cramps with or without diarrhea If you notice any of the above symptoms, contact our office at [phone] and ask to speak with a nurse. After hours, you can call doctors registry at [phone] OR call [facility] at [phone] and ask to have the doctor computer operations specialist paged. If you consider this an emergency, dial or go to your nearest emergency department. NEED HELP? Are you dealing with a violent or abusive relationship? Are you a victim of rape or sexual assult? Call [facility] ([place]) 24 hour Crisis Hotline: 282.716.9833 or 854-912-6139. MANUAL Your Guide to a Healthy manual is now on-line. Visit [email or web address] to download your free copy documented in this encounter [facility] 01-12-2023 Miscellaneous Notes Patient called and appointment given for today. Fabby Reeves RN Would recommend evaluation for possible appendicitis. Can Helen see her if possible today? Thanks, Mariangel Sage APRN.CNM Patient 27w1d calling with concerns of abdominal pain that has been present since waking up this AM. Patient states it almost feels like she pulled a muscle around her bellow button. When patient is up and moving around the pain becomes sharp and rates at a 6 out of 10 otherwise it is just a constant dull pain. Denies any leaking, bleeding, cramping, dysuria, constipation, diarrhea, fever, or decreased movement. Last seen in office on 01/08, next appointment on 01/19. Fabby Reeves RN documented in this encounter [facility] 01-08-2023 Miscellaneous Notes RR- VB No. LOF No. CTXS No. Movement: present. Other c/o: Yes: heartburn, no relieved w/ tums, happens most nights Medication list reviewed. Physical Exam See Flow Sheet Abd: soft, nontender, gravid Ext: edema: Trace A/P 26w4d Estimated Date of Delivery: 04/12/23 Labs: 28 week labs ordered tdap next visit flu vaccine today d/w her symptomatic measures for hearburn, trial OTC pepcid for now declines lARC at delivery Hilton Winters M.D. documented in this encounter [facility] 01-08-2023 Instructions Vandana Pham Ma - 01/08/2023 4:26 PM EST SEQUENTIAL SCREENINGS The [facility] offers sequential screenings for women who are interested in screenings for chromosomal abnormalities and certain defects during a . The sequential screen combines ultrasound and blood tests to determine the risk of chromosomal abnormalities, including Down's Syndrome (Trisomy 21) and Trisomy 18, as well as open neural tube defects including spina bifida. Ultrasound examination is performed between 11 weeks and 13 weeks gestational age. Blood tests are drawn after the ultrasound and again later in the between 15 and 21 weeks gestational age. Please let your physician know if you are interested in this testing. It will require an appointment with our transport tank technician. This is not an ultrasound performed by a physician in our office during a routine visit. SIGNS AND SYMPTOMS OF LABOR 1. Contractions every 10 minutes or more often 2. Clear, pink, or brownish fluid (water) leaking from vagina 3. Feeling that baby is pushing down, pressure 4. Low, dull backache 5. Cramps that feel like a period 6. Cramps with or without diarrhea If you notice any of the above symptoms, contact our office at [phone] and ask to speak with a nurse. After hours, you can call doctors registry at [phone] OR call [facility] at [phone] and ask to have the doctor computer operations specialist paged. If you consider this an emergency, dial 9--1 or go to your nearest emergency department. NEED HELP? Are you dealing with a violent or abusive relationship? Are you a victim of rape or sexual assult? Call [facility] ([place]) 24 hour Crisis Hotline: 686.500.2905 or 673-513-0467. MANUAL Your Guide to a Healthy manual is now on-line. Visit [email or web address] to download your free copy documented in this encounter [facility] 12-20-2022 Miscellaneous Notes pharm requesting refills: Last office visit 09/08/22. Last refill . Requested Prescriptions Pending Prescriptions Disp Refills escitalopram oxalate (LEXAPRO) 20 mg tablet [Pharmacy Med Name: ESCITALOPRAM 20 MG TABLET] 90 tablet 1 Sig: take 1 tablet by mouth every day Please review and advise. Jessica Muñiz MA documented in this encounter [facility] 12-11-2022 Miscellaneous Notes SW- Pt doing well. No pain, vb, lof. +FM. Anatomy US today and final report pending. Prelim report with pyelectasis. Will await final report and schedule follow up after. Discussed mild pyelectasis with patient. 28 wk labs ordered. Pt with questions about diastasis. Pelvic floor PT ordered. Cont baby ASA. Start magnesium for KIM's. RTO 4 wks. Vanessa Banuelos DO documented in this encounter [facility] 12-11-2022 Instructions Vanessa Banuelos MD - 12/11/2022 2:32 PM EDT mild pyelectasis SEQUENTIAL SCREENINGS The [facility] offers sequential screenings for women who are interested in screenings for chromosomal abnormalities and certain defects during a . The sequential screen combines ultrasound and blood tests to determine the risk of chromosomal abnormalities, including Down's Syndrome (Trisomy 21) and Trisomy 18, as well as open neural tube defects including spina bifida. Ultrasound examination is performed between 11 weeks and 13 weeks gestational age. Blood tests are drawn after the ultrasound and again later in the between 15 and 21 weeks gestational age. Please let your physician know if you are interested in this testing. It will require an appointment with our transport tank technician. This is not an ultrasound performed by a physician in our office during a routine visit. SIGNS AND SYMPTOMS OF LABOR 1. Contractions every 10 minutes or more often 2. Clear, pink, or brownish fluid (water) leaking from vagina 3. Feeling that baby is pushing down, pressure 4. Low, dull backache 5. Cramps that feel like a period 6. Cramps with or without diarrhea If you notice any of the above symptoms, contact our office at [phone] and ask to speak with a nurse. After hours, you can call doctors registry at [phone] OR call [facility] at [phone] and ask to have the doctor computer operations specialist paged. If you consider this an emergency, dial or go to your nearest emergency department. NEED HELP? Are you dealing with a violent or abusive relationship? Are you a victim of rape or sexual assult? Call [facility] ([place]) 24 hour Crisis Hotline: 906.539.3240 or 257-080-5572. MANUAL Your Guide to a Healthy manual is now on-line. Visit [email or web address] to download your free copy documented in this encounter [facility] 11-29-2022 Miscellaneous Notes Called patient. She wants to have appt tomorrow to come in to check FHT. She requests PM appointment. Patient transferred to program scheduler to input new insurance and schedule patient BP is within normal range. She can either go to L&D for FHT's or be seen in office tomorrow for them. Alana Dougherty APRN.CNM Patient called back. She still hasn't felt any movement. States she has gradually felt worse today. KIM, nausea, and dizzy. She took her BP and it was 120/68. Please advise. Susy Harper RN Agree with plan of care. Alana Dougherty APRN.CNM Patient calling in stating that she has been feeling movement flutters x 2 weeks. She is [id number] a few times an hour Today has not noted any movement even after drinking a sugary drink. Denies any bleeding or pain. Patient reassured that this can happen. I have advised her to call in if she doesn't feel movement in a few hours. Please call if further advice documented in this encounter [facility] 11-16-2022 Miscellaneous Notes Still unable to reach patient but he did see his results 11/15 at 9:03.Faye Guallpa LPN Attempted to call pt, voicemail is full. Will try again later. Fernanda Loo MA Please notify of negative throat culture Comfort measures as discussed at visit. Divine Chi APRN.CNP documented in this encounter [facility] 11-12-2022 Note HNO ID: [id number] Author: Cindy Goel APRN.CNP Service: ? Author Type: Nurse Practitioner Type: Progress Notes Filed: 11/12/2022 9:20 AM Note Text: CC: Patient presents with: Sore Throat: ST x 1 day HPI: Meredith Marcelino is a 32 year old female who presents to the office with complaint of sore throat for the past day. Symptoms are staying the same. Associated symptoms includes sore throat. Denies fever, nausea, vomiting , and diarrhea. Treatments tried include nothing so far. with no relief of symptoms. Sick contacts: unknown. History of asthma, frequent episodes of bronchitis, chronic bronchitis, bronchiectasis or COPD: No Smoker: No Seasonal/environmental allergies: No The ROS is otherwise negative. The patient's pmh, medications, allergies, and past visits are reviewed. PHYSICAL EXAM: BP 118/80 Pulse 91 Temp 37.1 ?C (98.8 ?F) (Tympanic) Resp 18 Wt 72.4 kg (159 lb 9.6 oz) LMP 07/06/2022 (Exact Date) SpO2 99% BMI 27.83 kg/m? General appearance: alert, cooperative, pleasant, in no acute distress Head: Normocephalic Eyes: EOM's intact, conjunctiva pink and moist, no icterus, sclera white, non-injected Ears: Right ear: External ear/canal- Normal, TM - clear with good landmarks. Left ear: External ear/canal- Normal, TM - clear with good landmarks Oropharynx:moderate erythema, without exudates present Heart: Negative. RRR without obvious murmur, gallop, or rubs. No ectopy. Lungs: clear to auscultation, without rales or wheeze, good air exchange PAST MEDICAL HISTORY Diagnosis Date Anxiety anxiety ASCUS Pap 2018 neg HPV History of pre-eclampsia in prior , currently 08/07/2022 Migraines Preeclampsia complicating hypertension started two days after delivery was on low dose lisinopril for 3 weeks PAST SURGICAL HISTORY Procedure Laterality Date EXTRACTION, ERUPTED TOOTH OR EXPOSED ROOT (ELEVATION AND/OR FORCEPS REMOVAL) 2009 SKIN LESION pre-cancerous ALLERGIES Sulfa (Sulfonamide Antibiotics) and Sulfasalazine MEDICATIONS aspirin 81 mg cap Take by mouth. prochlorperazine (COMPAZINE) 10 mg tablet Take 1 tablet by mouth every 6 hours as needed (nausea). prental multivitamin 27 mg iron- 800 mcg tablet Take 1 tablet by mouth once daily. escitalopram oxalate (LEXAPRO) 20 mg tablet Take 1 tablet by mouth once daily. acetaminophen (TYLENOL) 325 mg tablet Take 650 mg by mouth every 6 hours as needed. FAMILY HISTORY Problem Relation Age of Onset No Known Problems Mother No Known Problems Father other (gluten intolerance) Sister Breast Cancer Maternal Grandmother Diabetes Maternal Grandmother Hypertension Maternal Grandfather Stroke Maternal Grandfather Cancer Maternal Grandfather Skin Ca Dementia Maternal Grandfather Heart Paternal Grandmother Pacemaker other (uterine cancer) Paternal Grandmother Arthritis Paternal Grandfather No Known Problems Son Social History Tobacco Use Smoking status: Former Packs/day: 0.50 Years: 10.00 Additional pack years: 0.00 Total pack years: 5.00 Types: Cigarettes Quit date: 11/26/2018 Years since quittin.9 Smokeless tobacco: Never Vaping Use Vaping Use: Never used Substance Use Topics Alcohol use: Not Currently Comment: social Drug use: Never ASSESSMENT/PLAN: 1. Sore throat - ICD9: 462, ICD10: J02.9 - STREP A MOLECULAR (POC) - neg - THROAT CULTURE If positive please treat. Potential red flag symptoms discussed with the patient. Reviewed appropriate action plan to take if red flag symptoms occur. Patient agreeable to treatment plan. Cindy Goel APRN.[facility] 11-12-2022 History of Presen t illness Narrative CC: Patient presents with: Sore Throat: ST x 1 day HPI: Meredith Marcelino is a 32 year old female who presents to the office with complaint of sore throat for the past day. Symptoms are staying the same. Associated symptoms includes sore throat. Denies fever, nausea, vomiting , and diarrhea. Treatments tried include nothing so far. with no relief of symptoms. Sick contacts: unknown. History of asthma, frequent episodes of bronchitis, chronic bronchitis, bronchiectasis or COPD: No Smoker: No Seasonal/environmental allergies: No The ROS is otherwise negative. The patient's pmh, medications, allergies, and past visits are reviewed. PHYSICAL EXAM: BP 118/80 Pulse 91 Temp 37.1 C (98.8 F) (Tympanic) Resp 18 Wt 72.4 kg (159 lb 9.6 oz) LMP 07/06/2022 (Exact Date) SpO2 99% BMI 27.83 kg/m General appearance: alert, cooperative, pleasant, in no acute distress Head: Normocephalic Eyes: EOM's intact, conjunctiva pink and moist, no icterus, sclera white, non-injected Ears: Right ear: External ear/canal- Normal, TM - clear with good landmarks. Left ear: External ear/canal- Normal, TM - clear with good landmarks Oropharynx:moderate erythema, without exudates present Heart: Negative. RRR without obvious murmur, gallop, or rubs. No ectopy. Lungs: clear to auscultation, without rales or wheeze, good air exchange PAST MEDICAL HISTORY Diagnosis Date Anxiety anxiety ASCUS Pap 2018 neg HPV History of pre-eclampsia in prior , currently 08/07/2022 Migraines Preeclampsia complicating hypertension started two days after delivery was on low dose lisinopril for 3 weeks PAST SURGICAL HISTORY Procedure Laterality Date EXTRACTION, ERUPTED TOOTH OR EXPOSED ROOT (ELEVATION AND/OR FORCEPS REMOVAL) 2009 SKIN LESION pre-cancerous ALLERGIES Sulfa (Sulfonamide Antibiotics) and Sulfasalazine MEDICATIONS aspirin 81 mg cap Take by mouth. prochlorperazine (COMPAZINE) 10 mg tablet Take 1 tablet by mouth every 6 hours as needed (nausea). prental multivitamin 27 mg iron- 800 mcg tablet Take 1 tablet by mouth once daily. escitalopram oxalate (LEXAPRO) 20 mg tablet Take 1 tablet by mouth once daily. acetaminophen (TYLENOL) 325 mg tablet Take 650 mg by mouth every 6 hours as needed. FAMILY HISTORY Problem Relation Age of Onset No Known Problems Mother No Known Problems Father other (gluten intolerance) Sister Breast Cancer Maternal Grandmother Diabetes Maternal Grandmother Hypertension Maternal Grandfather Stroke Maternal Grandfather Cancer Maternal Grandfather Skin Ca Dementia Maternal Grandfather Heart Paternal Grandmother Pacemaker other (uterine cancer) Paternal Grandmother Arthritis Paternal Grandfather No Known Problems Son Social History Tobacco Use Smoking status: Former Packs/day: 0.50 Years: 10.00 Additional pack years: 0.00 Total pack years: 5.00 Types: Cigarettes Quit date: 11/26/2018 Years since quittin.9 Smokeless tobacco: Never Vaping Use Vaping Use: Never used Substance Use Topics Alcohol use: Not Currently Comment: social Drug use: Never ASSESSMENT/PLAN: 1. Sore throat - ICD9: 462, ICD10: J02.9 - STREP A MOLECULAR (POC) - neg - THROAT CULTURE If positive please treat. Potential red flag symptoms discussed with the patient. Reviewed appropriate action plan to take if red flag symptoms occur. Patient agreeable to treatment plan. Cindy Goel APRN.CNP documented in this encounter [facility] 10-20-2022 Miscellaneous Notes Pt notified and voiced understanding. No further questions. Honey Muñoz LPN I would recommend patient increase fluids. Start taking Zinc 30 mg, Vit. C 500 mg , and Vit D 2,000 international unit(s) daily. If she develops fever, take Tylenol 1000 mg As needed. Did not send medicine RX because she describes a mild ( not severe) infection. If worsens, please notify office. Alana Dougherty APRN.CNM 15w0d Patient tested COVID + today. Symptoms began this morning - sore throat and fatigue. Afebrile. Agreeable to a prescription for Paxlovid if recommended by provider. RX pending. Aware she will most likely hear from the office tomorrow since the office is now closed. Susy Harper RN documented in this encounter [facility] 10-02-2022 Miscellaneous Notes Meredith Marcelino is a 32 year old female who presents at 12w4d for a routine visit. Nausea with dry heaving at times. Able to keep food and liquid down. Denies headache, visual changes, chest pain, shortness of breath, vaginal bleeding, leakage of fluid, or dysuria. Feeling well, no complaints. Interested in NT US- but not NIPT. Needs labs as well. Will start taking ASA. ASSESSMENT/PLAN: 1. Encounter for supervision of normal first in second trimester - ICD9: V22.0, ICD10: Z34.02 (primary diagnosis) 2. 12 weeks gestation of - ICD9: V22.2, ICD10: Z3A.12 - URINE OB DIP B/O - NUCHAL TRANSLUCENCY WHI - Start ASA daily 3. JIN (generalized anxiety disorder) - ICD9: 300.02, ICD10: F41.1 - Continue Lexapro 20 mg PO Daily PTL precautions reviewed. RTC in 4 weeks or sooner Alana Dougherty APRN.CNM documented in this encounter [facility] 10-02-2022 Instructions Brandon Plummer Cma - 10/02/2022 10:51 AM EDT SEQUENTIAL SCREENINGS The [facility] offers sequential screenings for women who are interested in screenings for chromosomal abnormalities and certain defects during a . The sequential screen combines ultrasound and blood tests to determine the risk of chromosomal abnormalities, including Down's Syndrome (Trisomy 21) and Trisomy 18, as well as open neural tube defects including spina bifida. Ultrasound examination is performed between 11 weeks and 13 weeks gestational age. Blood tests are drawn after the ultrasound and again later in the between 15 and 21 weeks gestational age. Please let your physician know if you are interested in this testing. It will require an appointment with our transport tank technician. This is not an ultrasound performed by a physician in our office during a routine visit. SIGNS AND SYMPTOMS OF LABOR 1. Contractions every 10 minutes or more often 2. Clear, pink, or brownish fluid (water) leaking from vagina 3. Feeling that baby is pushing down, pressure 4. Low, dull backache 5. Cramps that feel like a period 6. Cramps with or without diarrhea If you notice any of the above symptoms, contact our office at [phone] and ask to speak with a nurse. After hours, you can call doctors registry at [phone] OR call [facility] at [phone] and ask to have the doctor computer operations specialist paged. If you consider this an emergency, dial [phone]- or go to your nearest emergency department. NEED HELP? Are you dealing with a violent or abusive relationship? Are you a victim of rape or sexual assult? Call [facility] ([place]) 24 hour Crisis Hotline: 372.931.9639 or 447-995-5718. MANUAL Your Guide to a Healthy manual is now on-line. Visit [email or web address]/HealthyPregn [email or web address] to download your free copy documented in this encounter [facility] 09-08-2022 Note HNO ID: [id number] Author: Mari Ochoa APRN.PUZZLE ASSEMBLER Service: ? Author Type: Nurse Practitioner Type: Progress Notes Filed: 09/08/2022 9:15 AM Note Text: CHIEF COMPLAINT: Meredith Marcelino is a 32 year old female who presents for 1 week f/u SOB. I reviewed past medical, surgical, social, and family histories today and updated chart. Allergies, chronic medications, and supplements were also reviewed. States she is feeling better since taking the Zpak and finished the Amoxicillin SOB has improved but still has times where she has to take a deep breath in No cough, fever, CP Had her OB appointment and baby's HR is strong Besides some morning sickness she is doing well Grandma had a stroke over the weekend Has had some stress with this Migraine over the weekend The history is provided by the patient. No language teacher was used. PAST MEDICAL HISTORY Diagnosis Date Anxiety anxiety ASCUS Pap 2017 neg HPV History of pre-eclampsia in prior , currently 08/07/2022 Migraines Preeclampsia complicating hypertension started two days after delivery was on low dose lisinopril for 3 weeks PAST SURGICAL HISTORY Procedure Laterality Date EXTRACTION, ERUPTED TOOTH OR EXPOSED ROOT (ELEVATION AND/OR FORCEPS REMOVAL) 2010 SKIN LESION pre-cancerous Social History Tobacco Use Smoking status: Former Packs/day: 0.50 Years: 10.00 Total pack years: 5.00 Types: Cigarettes Quit date: 11/26/2018 Years since quittin.7 Smokeless tobacco: Never Vaping Use Vaping Use: Never used Substance Use Topics Alcohol use: Not Currently Comment: social Drug use: Never ALLERGIES Allergen Reactions Sulfa (Sulfonamide * Hives Sulfasalazine Hives Family History Problem Relation Age of Onset No Known Problems Mother No Known Problems Father other (gluten intolerance) Sister Breast Cancer Maternal Grandmother Diabetes Maternal Grandmother Hypertension Maternal Grandfather Stroke Maternal Grandfather Cancer Maternal Grandfather Skin Ca Dementia Maternal Grandfather Heart Paternal Grandmother Pacemaker other (uterine cancer) Paternal Grandmother Arthritis Paternal Grandfather No Known Problems Son Current Outpatient Medications Medication Sig Dispense Refill prochlorperazine (COMPAZINE) 10 mg tablet Take 1 tablet by mouth every 6 hours as needed (nausea). 30 tablet 1 prental multivitamin 27 mg iron- 800 mcg tablet Take 1 tablet by mouth once daily. escitalopram oxalate (LEXAPRO) 20 mg tablet Take 1 tablet by mouth once daily. 90 tablet 1 acetaminophen (TYLENOL) 325 mg tablet Take 650 mg by mouth every 6 hours as needed. azithromycin (ZITHROMAX) 250 mg tablet Take two tablets by mouth the first day and then one tablet a day for days 2-5 (Patient not taking: Reported on 09/08/2022) 6 tablet 0 No current facility-administered medications for this visit. Review of Systems Constitutional: Positive for fatigue. Negative for appetite change, chills, diaphoresis and fever. HENT: Negative. Eyes: Negative for visual disturbance. Respiratory: Negative for cough, chest tightness, shortness of breath and wheezing. Cardiovascular: Positive for palpitations (feels like it's beating harder at times). Negative for chest pain and leg swelling. Gastrointestinal: Negative for abdominal pain, diarrhea, nausea and vomiting. Endocrine: Negative. Genitourinary: Negative. Musculoskeletal: Negative. Skin: Negative. Allergic/Immunologic: Negative. Neurological: Positive for headaches (had a migraine Sunday). Negative for dizziness and light-headedness. Hematological: Negative. Psychiatric/Behavioral: The patient is not nervous/anxious. BP 116/62 Pulse 79 Temp 98.1 Resp 17 Ht 5' 3.5 (1.61m) Wt 157 lb (71.2kg) SpO2 98% LMP 07/06/2022 BMI 27.37 kg/(m2). Physical Exam Vitals and nursing note reviewed. Constitutional: Appearance: Normal appearance. HENT: Mouth/Throat: Mouth: Mucous membranes are moist. Pharynx: Oropharynx is clear. Eyes: Pupils: Pupils are equal, round, and reactive to light. Cardiovascular: Rate and Rhythm: Normal rate and regular rhythm. Heart sounds: Normal heart sounds, S1 normal and S2 normal. No murmur heard. Pulmonary: Effort: Pulmonary effort is normal. Breath sounds: Normal breath sounds and air entry. No decreased breath sounds, wheezing, rhonchi or rales. Chest: Comments: Pectus excavatum Musculoskeletal: Right lower leg: No edema. Left lower leg: No edema. Skin: General: Skin is warm and dry. Neurological: Mental Status: She is alert and oriented to person, place, and time. Some elements of above documentation were copied from my progress note of 09/01/22 and have been reexamined and updated where appropriate. All elements reflect the current assessment and medical decision making today. ASSESSMENT/PLAN: 1. SOB (shortness of breath) - ICD9: 786. (more content not included)... [facility] 09-08-2022 History of Presen t illness Narrative CHIEF COMPLAINT: Meredith Marcelino is a 32 year old female who presents for 1 week f/u SOB. I reviewed past medical, surgical, social, and family histories today and updated chart. Allergies, chronic medications, and supplements were also reviewed. States she is feeling better since taking the Zpak and finished the Amoxicillin SOB has improved but still has times where she has to take a deep breath in No cough, fever, CP Had her OB appointment and baby's HR is strong Besides some morning sickness she is doing well Grandma had a stroke over the weekend Has had some stress with this Migraine over the weekend The history is provided by the patient. No language teacher was used. PAST MEDICAL HISTORY Diagnosis Date Anxiety anxiety ASCUS Pap 2017 neg HPV History of pre-eclampsia in prior , currently 08/07/2022 Migraines Preeclampsia complicating hypertension started two days after delivery was on low dose lisinopril for 3 weeks PAST SURGICAL HISTORY Procedure Laterality Date EXTRACTION, ERUPTED TOOTH OR EXPOSED ROOT (ELEVATION AND/OR FORCEPS REMOVAL) 2010 SKIN LESION pre-cancerous Social History Tobacco Use Smoking status: Former Packs/day: 0.50 Years: 10.00 Total pack years: 5.00 Types: Cigarettes Quit date: 11/26/2018 Years since quittin.7 Smokeless tobacco: Never Vaping Use Vaping Use: Never used Substance Use Topics Alcohol use: Not Currently Comment: social Drug use: Never ALLERGIES Allergen Reactions Sulfa (Sulfonamide * Hives Sulfasalazine Hives Family History Problem Relation Age of Onset No Known Problems Mother No Known Problems Father other (gluten intolerance) Sister Breast Cancer Maternal Grandmother Diabetes Maternal Grandmother Hypertension Maternal Grandfather Stroke Maternal Grandfather Cancer Maternal Grandfather Skin Ca Dementia Maternal Grandfather Heart Paternal Grandmother Pacemaker other (uterine cancer) Paternal Grandmother Arthritis Paternal Grandfather No Known Problems Son Current Outpatient Medications Medication Sig Dispense Refill prochlorperazine (COMPAZINE) 10 mg tablet Take 1 tablet by mouth every 6 hours as needed (nausea). 30 tablet 1 prental multivitamin 27 mg iron- 800 mcg tablet Take 1 tablet by mouth once daily. escitalopram oxalate (LEXAPRO) 20 mg tablet Take 1 tablet by mouth once daily. 90 tablet 1 acetaminophen (TYLENOL) 325 mg tablet Take 650 mg by mouth every 6 hours as needed. azithromycin (ZITHROMAX) 250 mg tablet Take two tablets by mouth the first day and then one tablet a day for days 2-5 (Patient not taking: Reported on 09/08/2022) 6 tablet 0 No current facility-administered medications for this visit. Review of Systems Constitutional: Positive for fatigue. Negative for appetite change, chills, diaphoresis and fever. HENT: Negative. Eyes: Negative for visual disturbance. Respiratory: Negative for cough, chest tightness, shortness of breath and wheezing. Cardiovascular: Positive for palpitations (feels like it's beating harder at times). Negative for chest pain and leg swelling. Gastrointestinal: Negative for abdominal pain, diarrhea, nausea and vomiting. Endocrine: Negative. Genitourinary: Negative. Musculoskeletal: Negative. Skin: Negative. Allergic/Immunologic: Negative. Neurological: Positive for headaches (had a migraine Sunday). Negative for dizziness and light-headedness. Hematological: Negative. Psychiatric/Behavioral: The patient is not nervous/anxious. BP 116/62 Pulse 79 Temp 98.1 Resp 17 Ht 5' 3.5 (1.61m) Wt 157 lb (71.2kg) SpO2 98% LMP 07/06/2022 BMI 27.37 kg/(m^2). Physical Exam Vitals and nursing note reviewed. Constitutional: Appearance: Normal appearance. HENT: Mouth/Throat: Mouth: Mucous membranes are moist. Pharynx: Oropharynx is clear. Eyes: Pupils: Pupils are equal, round, and reactive to light. Cardiovascular: Rate and Rhythm: Normal rate and regular rhythm. Heart sounds: Normal heart sounds, S1 normal and S2 normal. No murmur heard. Pulmonary: Effort: Pulmonary effort is normal. Breath sounds: Normal breath sounds and air entry. No decreased breath sounds, wheezing, rhonchi or rales. Chest: Comments: Pectus excavatum Musculoskeletal: Right lower leg: No edema. Left lower leg: No edema. Skin: General: Skin is warm and dry. Neurological: Mental Status: She is alert and oriented to person, place, and time. Some elements of above documentation were copied from my progress note of 09/01/22 and have been reexamined and updated where appropriate. All elements reflect the current assessment and medical decision making today. ASSESSMENT/PLAN: 1. SOB (shortness of breath) - ICD9: 786.05, ICD10: R06.02 (primary diagnosis) - Improved after completing antibiotics - Continue to monitor and F/U if symptoms return 2. 10 weeks gestation of - ICD9: V22.2, ICD10: Z3A.10 - Under the care of GROCERY SPECIALIST New medication(s) prescribed today: None. Counseling completed in adopting health behaviors such as avoiding excessive alcohol use, avoid tobacco use, improve nutrition, and engage in physical activities. Copy of written care plan, clinical summary, treatment plan, new medications, goals, and self management requirements were given to patient. Mari Ochoa APRN.[place] documented in this encounter [facility] 09-04-2022 Note HNO ID: [id number] Author: Hilton Winters MD Service: ? Author Type: Physician Type: Progress Notes Filed: 09/04/2022 10:56 AM Note Text: INITIAL OB ASSESSMENT Lathing Supervisor offered: Patient declines. Obstetric History T1 L1 SAB0 IAB0 Ectopic0 Multiple0 Live Births1 Name of Baby 1: Doug Date: 09/08/19 GA: 40w1d Delivery: Vaginal, Vacuum (Extractor) Apgar1: 7 Apgar5: 9 Living: Living Name of Baby 2: Not recorded Date: Not recorded GA: Not recorded Delivery: Not recorded Apgar1: Not recorded Apgar5: Not recorded Living: Not recorded HPI: Meredith is a 32 year old White here to establish Obstetrical Care. Patient's last menstrual period was 07/06/2022 (exact date). from OB Dating Form. Cycles regular was planned Complaints: nausea without vomiting, had pneumonia, getting better, almost done w/ antibiotics OB History T1 L1 SAB0 IAB0 Ectopic0 Multiple0 Live Births1 Previous history: Prior : never History of 4th degree laceration: No History of shoulder dystocia: No History of Hypertensive disorders including pre-eclampsia, chronic hypertension or gestational hypertension: No - elevated after delivery History of gestational diabetes: No Patient's Risk Screening for delivery: MEDICAL/PSYCHOSOCIAL HISTORY: History of hemorrhage or bleeding concerns: No Thyroid Disease: No History of chronic hypertension: No History of pre-existing diabetes: No ABO/RH(D) Date Value Ref Range Status 03/04/2019 A POSITIVE Final BMI 26.57 kg/(m2) History of abnormal pap: No Prior treatment for cervical dysplasia: none. History of STDs: None Tobacco use: No Caffeine use: yes Drug use: No Alcohol use: No Multivitamin with Folic acid: Yes Sikh or heritage: No Would refuse blood transfusion if medically necessary: No Are you currently employed? Yes, Occupation: Works at a [employer] Do you have any history of depression, anxiety, PTSD, eating disorders or other mood problems: No Do you have any safety concerns or history of traumatic events that you would like to discuss with your provider: No How often does this describe you? I don't have enough money to pay my bills: Never Within the past 12 months, have you worried that your food would run out before you had money to buy more: Never In the past 12 months, has lack of reliable transportation kept you from going to medical appointments or work, or from keeping things needed for daily living: Never In the past 12 months, have you had any concerns about having a place to live, or about the condition or quality of your housing: Never Are there any cultural or spiritual needs we should be aware of: No Depression: denies symptoms of depression. OB Depression and Anxiety Screening- This Encounter (since 09/03/2022) None GENETIC SCREENING: Partner present: No Patient verbalized knowledge of partner family health history: Yes Do you or your partner have any personal or family history of defects not previously discussed: No Do you have history of a complicated by anomaly, genetic condition, or demise: No Marital Status: Partner: Name: Wily Age: 32 Occupation: [employer] Gender: Male History of STDs: None PAST MEDICAL HISTORY Diagnosis Date Anxiety anxiety ASCUS Pap 2018 neg HPV History of pre-eclampsia in prior , currently 08/07/2022 Migraines Preeclampsia complicating hypertension started two days after delivery was on low dose lisinopril for 3 weeks PAST SURGICAL HISTORY Procedure Laterality Date EXTRACTION, ERUPTED TOOTH OR EXPOSED ROOT (ELEVATION AND/OR FORCEPS REMOVAL) 2009 SKIN LESION pre-cancerous Current Outpatient Medications Medication Sig Dispense Refill azithromycin (ZITHROMAX) 250 mg tablet Take two tablets by mouth the first day and then one tablet a day for days 2-5 6 tablet 0 prochlorperazine (COMPAZINE) 10 mg tablet Take 1 tablet by mouth every 6 hours as needed (nausea). 30 tablet 1 prental multivitamin 27 mg iron- 800 mcg tablet Take 1 tablet by mouth once daily. escitalopram oxalate (LEXAPRO) 20 mg tablet Take 1 tablet by mouth once daily. 90 tablet 1 acetaminophen (TYLENOL) 325 mg tablet Take 650 mg by mouth every 6 hours as needed. No current facility-administered medications for this visit. Allergies As of Date: 09/04/2022 Allergen Noted Reaction SULFA (SULFONAMIDE ANTIBIOTICS) 09/05/2016 Hives SULFASALAZINE 09/06/2015 Hives Fully Assessed 09/04/2022 Does patient have penicillin allergy: No REVIEW OF SYSTEMS: GENERAL: Negative for: Fever or Chills HEENT: Negative for: Headache, Impaired Vision, Ringing in Ears, Nosebleeds NECK: Negative for: Swelling, Pain, Stiffness RESPIRATORY: Negative for: Cough, Shortness of breath, Wheezing GASTROINTESTINAL: Negative for: He (more content not included)... [facility] 09-01-2022 Note HNO ID: [id number] Author: Aneta Sena CT Service: ? Author Type: Technologist Type: Progress Notes Filed: 09/01/2022 4:13 PM Note Text: Radiology Service Progress Note PATIENT NAME: Meredith Marcelino DATE OF SERVICE: September 01, 2022 TIME: 4:13 PM PATIENT IDENTITY VERIFICATION COMPLETED USING TWO (2) IDENTIFIERS: Name and Date of confirmed by patient verbally. FALL SCREENING: Has the patient had 2 falls in the last year or 1 fall with injury or currently using an Ambulatory Assistive Device (Walker, Cane, Wheelchair, Crutches, etc.)? No PATIENT GENDER DATA: Female. status: : No status: NO. PATIENT RELEVANT IMPLANT DATA REVIEWED: Not Applicable RADIOLOGY DEPARTMENT: General X-ray: Exam(s) Completed: Chest X-Ray PERIPHERAL IV DATA: Not applicable SIGNED BY: AUSTYN Dawson September 01, 2022 4:13 PM [facility] 09-01-2022 Note HNO ID: [id number] Author: Mari Ochoa APRN.PUZZLE ASSEMBLER Service: ? Author Type: Nurse Practitioner Type: Progress Notes Filed: 09/01/2022 5:45 PM Note Text: [address] [id number] Visit Date: 09/01/2022 Patient Name: Meredith Marcelino Date of : 1990 Chief Complaint: ER Follow Up Meredith Marcelino is a 32 year old female here today for a follow up to a recent emergency room (ER) visit. Emergency Room Location: [facility] Date of Emergency Room Visit: 08/29/22 Reason for Emergency Room Visit: Pneumonia ED Visits AND Hospitalizations - Last 180 days 08/29/22 Farhat, Quinn Olguin MD, MEED Community acquired pneumonia of right lower lobe of lung ..., ED (DISCHARGE) 06/21/22 Alex Coburn DO, LDED Intractable migraine with aura without status migrainosus, ED (DISCHARGE) HPI: Patient presented to the ED on 08/29/22 with complaints of SOB and difficulty taking a deep breath in. She is 8 weeks currently. Labs were obtained and her CBC, BNP, troponin, and troponin were all negative. CXR did show hazy right opacity secondary to infectious/inflammatory process or atelectasis. She was diagnosed with community acquired pneumonia (although ER note states they don't believe it is PNA) treated with Amoxicillin at discharge. Today is not feeling any better despite taking the Amoxicillin. She is feeling SOB all the time and feels like something is wrong . She is very worried because her sister had a spontaneous pneumothorax when she was 29. She has had no coughing, wheezing, sputum production, hemoptysis, fevers, chest pain. IMPRESSION: Hazy RIGHT infrahilar opacification could be secondary to infectious/inflammatory process or atelectasis. Vitals BP 118/70 Pulse 97 Temp 98.3 Ht 5' 3.5 (1.61m) Wt 157 lb (71.2kg) SpO2 97% LMP 07/06/2022 BMI 27.37 kg/(m2). PAST MEDICAL HISTORY Diagnosis Date - Anxiety - anxiety - ASCUS Pap 2017 neg HPV - History of pre-eclampsia in prior , currently 08/07/2022 - Migraines - Preeclampsia complicating hypertension started two days after delivery was on low dose lisinopril for 3 weeks PAST SURGICAL HISTORY Procedure Laterality Date - EXTRACTION, ERUPTED TOOTH OR EXPOSED ROOT (ELEVATION AND/OR FORCEPS REMOVAL) 2009 - SKIN LESION pre-cancerous FAMILY HISTORY Problem Relation Age of Onset - No Known Problems Mother - No Known Problems Father - other (gluten intolerance) Sister - Breast Cancer Maternal Grandmother - Diabetes Maternal Grandmother - Hypertension Maternal Grandfather - Stroke Maternal Grandfather - Cancer Maternal Grandfather Skin Ca - Dementia Maternal Grandfather - Heart Paternal Grandmother Pacemaker - other (uterine cancer) Paternal Grandmother - Arthritis Paternal Grandfather - No Known Problems Son Social History Tobacco Use - Smoking status: Former Packs/day: 0.50 Years: 10.00 Total pack years: 5.00 Types: Cigarettes Quit date: 11/26/2018 Years since quittin.7 - Smokeless tobacco: Never Vaping Use - Vaping Use: Never used Substance Use Topics - Alcohol use: Not Currently Comment: social - Drug use: Never Current Meds - amoxicillin (AMOXIL) 500 mg capsule Take 2 capsules by mouth three times daily for 5 days. - prochlorperazine (COMPAZINE) 10 mg tablet Take 1 tablet by mouth every 6 hours as needed (nausea). - prental multivitamin 27 mg iron- 800 mcg tablet Take 1 tablet by mouth once daily. - escitalopram oxalate (LEXAPRO) 20 mg tablet Take 1 tablet by mouth once daily. - acetaminophen (TYLENOL) 325 mg tablet Take 650 mg by mouth every 6 hours as needed. - azithromycin (ZITHROMAX) 250 mg tablet Take two tablets by mouth the first day and then one tablet a day for days 2-5 I have confirmed and edited as necessary the chief complaint, medications, past medical, family and social histories obtained by others. Review of Systems Constitutional: Positive for fatigue. Negative for appetite change, chills, diaphoresis and fever. HENT: Negative. Eyes: Positive for visual disturbance ( spots ). Respiratory: Positive for shortness of breath. Negative for cough, chest tightness and wheezing. Cardiovascular: Positive for chest pain and palpitations. Negative for leg swelling. Gastrointestinal: Negative for abdominal pain, diarrhea, nausea and vomiting. Endocrine: Negative. Genitourinary: Negative. Musculoskeletal: Negative. Skin: Negative. Allergic/Immunologic: Negative. Neurological: Positive for headaches. Negative for dizziness and light-headedness. Hematological: Negative. Psychiatric/Behavioral: The patient is nervous/anxious. Physical Exam Vitals and nursing note reviewed. Constitutional: Appearance: Normal appearance. HENT: Mouth/Throat: Mouth: Mucous membranes are moist. Pharynx: (more content not included)... [facility] 08-31-2022 Miscellaneous Notes The XR was ordered in the ED and should have been discussed with her but it did show pneumonia and that is why they started her on the Amoxicillin. She is on the recommended treatment for PNA, especially when . If she is not feeling better, please have her make an appointment or return to the ED. Patient is informed, and would like results for x-ray and she states that she not feeling any difference with amoxicillin Freda Johnson MA ----- Message from Mari Ochoa APRN.[place] sent at 08/31/2022 9:03 AM EDT ----- Please let patient know their results are WNL. Thank you. documented in this encounter [facility] 08-29-2022 Miscellaneous Notes Pt notified of below instructions and was agreeable with these instructions and will head into the ED. Honey Muñoz LPN I recommend she proceed to the ED Marietta Goel MD Please review in KJ absence. Honey Muñoz LPN 7w5d Pt calling and stated that she is having issues with SOB at rest and on exertion. Pt stated that she does not feel as though she can take a deep breath. Denies any pain associated with this. Has been an issue for the past week with no worsening in intensity. Pt reports that this is in turn causing panic attacks. She is able to calm her breathing and panic attack then subsides. She stated that she thinks that she is just very anxious and worsening the occurrence of this. She denies any fever, LOF, VB or other c/o. Please advise. Honey Muñoz LPN documented in this encounter [facility] 08-10-2022 Note HNO ID: [id number] Author: Vanessa Banuelos MD Service: ? Author Type: Physician Type: Progress Notes Filed: 08/10/2022 6:23 PM Note Text: Lathing Supervisor offered: Patient declines. Meredith Marcelino is a 32 year old female who presents for r/o ectopic. HPI: Cramping last week and RLQ pain today. The pain is sharp to dull. No vb. LMP certain. Cycles 22-24 days. OB History T1 L1 SAB0 IAB0 Ectopic0 Multiple0 Live Births1 Exchange Floor Manager History LMP: 07/06/2022 (Exact Date), Age at Menarche: Age at First : Age at Menopause: Exchange Floor Manager History Comments: Sexual Activity: Yes; Male Contraception: Condom PAST MEDICAL HISTORY Diagnosis Date Anxiety anxiety ASCUS Pap 2017 neg HPV History of pre-eclampsia in prior , currently 08/07/2022 Migraines Preeclampsia complicating hypertension started two days after delivery was on low dose lisinopril for 3 weeks PAST SURGICAL HISTORY Procedure Laterality Date EXTRACTION, ERUPTED TOOTH OR EXPOSED ROOT (ELEVATION AND/OR FORCEPS REMOVAL) 2009 SKIN LESION pre-cancerous FAMILY HISTORY Problem Relation Age of Onset No Known Problems Mother No Known Problems Father other (gluten intolerance) Sister Breast Cancer Maternal Grandmother Diabetes Maternal Grandmother Hypertension Maternal Grandfather Stroke Maternal Grandfather Cancer Maternal Grandfather Skin Ca Dementia Maternal Grandfather Heart Paternal Grandmother Pacemaker other (uterine cancer) Paternal Grandmother Arthritis Paternal Grandfather No Known Problems Son Social History Tobacco Use Smoking status: Former Packs/day: 0.50 Years: 10.00 Pack years: 5.00 Types: Cigarettes Quit date: 11/26/2018 Years since quittin.7 Smokeless tobacco: Never Vaping Use Vaping Use: Never used Substance Use Topics Alcohol use: Not Currently Comment: social Drug use: Never Current Outpatient Medications Medication Sig prental multivitamin 27 mg iron- 800 mcg tablet Take 1 tablet by mouth once daily. escitalopram oxalate (LEXAPRO) 20 mg tablet Take 1 tablet by mouth once daily. acetaminophen (TYLENOL) 325 mg tablet Take 650 mg by mouth every 6 hours as needed. acetaminophen 325 mg-caffeine 40 mg-butalbital 50 mg (FIORICET) per tablet Take 1 tablet by mouth every 4 hours as needed for headache. Do not exceed 6 tablets in 24 hours. (Patient not taking: Reported on 08/07/2022) Cholecalciferol, Vitamin D3, 125 mcg (5,000 unit) cap Take 1 capsule by mouth once daily. (Patient not taking: Reported on 08/07/2022) norgestimate 0.25 mg-ethinyl estradiol 35 mcg (SPRINTEC) 0.25-35 mg-mcg per tablet Take 1 tablet by mouth once daily. MAGNESIUM ORAL Take 10 mg by mouth daily at bedtime. (Patient not taking: Reported on 08/07/2022) No current facility-administered medications for this visit. Allergies As of Date: 08/10/2022 Allergen Noted Reaction SULFA (SULFONAMIDE ANTIBIOTICS) 09/05/2016 Hives SULFASALAZINE 09/06/2015 Hives Fully Assessed 08/10/2022 REVIEW OF SYSTEMS Abdomen: No vomiting, diarrhea, or constipation. Expanded ROS: N/A Allergies and current medication updated:Yes EXAM: BP 100/60 Wt 155 lb 3.2 oz (70.4kg) LMP 07/06/2022 GENERAL: pleasant, female in no apparent distress HEENT: Normocephalic, atraumatic, mucus membranes moist, and no lesions NECK: full range of motion DERMATOLOGY: Normal, without lesions, non-icteric, and non-hirsute CHEST: Normal inspiratory effort ABDOMEN: soft, non-tender, and no masses NEURO: exam grossly non-focal EXTREMITIES: normal ASSESSMENT AND PLAN: Encounter Diagnosis ICD-10-CM 1. Early stage of Z34.90 2. RLQ abdominal pain R10.31 HCG quant reviewed. TVUS performed showing intrauterine GS measuring 5w3d and a yolk sac. No pole present. There is a small < 5 cm corpus luteal cyst noted in right adnexa. No free fluid in pelvic CDS. Repeat HCG quant tomorrow. Keep scheduled NOB. Vanessa Banuelos DO Medical Decision Making: Problems: Low: Acute, uncomplicated illness or injury Medical Decision Making Level: 2 - Straightforward [facility] 08-10-2022 Miscellaneous Notes See result note. Please leave phone note open for 08/10 and 08/12 HCG Quants. Reviewed bleeding precautions. Susy Harper RN Serial HCG ordered 5w0d Calling because she started with sudden onset of frequent RLQ sharp pain today. Rating 5/10 on the pain scale now. No bleeding or other complaints. NOB scheduled with RR 09/04/22. Please advise. Dary Giauque RN documented in this encounter [facility] documented as of this encounter (statuses as of 03/17/2023) [facility]06-26-2023 NoteHNO ID: [id number] Author: Chery Schilling RN Service: ? Author Type: ? Type: Progress Notes Filed: 08/07/2022 11:48 AM Note Text: # 1 - Date: 09/08/19, Sex: Male, Weight: 6 lb 13 oz (3.09 kg), GA: 40w1d, Delivery: Vaginal, Vacuum (Extractor), Apgar1: 7, Apgar5: 9, Living: Living, Comments: spontaneous labor, thick meconium, prolonged second stage, maternal exhaustion, pushed times4 hours, CAN x1 loose, 2nd degree vaginal extension laceration right side, preeclampsia # 2 - Date: None, Sex: None, Weight: None, GA: None, Delivery: None, Apgar1: None, Apgar5: None, Living: None, [facility]iscellaneous Notes* Quick Notes - Chery Schilling RN - 08/07/2022 11:38 AM EDT DISTANCE HEALTH VISIT This Team Access Model visit is a phone encounter. It required patient-provider interaction for themedical decision making as documented below.Patient was treated for strep throat on July 07. She took amoxicillin for 10 days. She states that her symptoms have resolved. Pt has a history of anxiety treated by Gladis Ochoa. She is currently taking Lexapro. She denies any history of depression or depression. She believes she is doing well on medication. She will call Payton to let her know that she is . Discussed increased risks of depression during and and importance of reporting the development or worsening of symptoms should they occur. Pt denies ever having any suicidal thoughts or tendencies or thoughts of hurting others. Patient has a historyof preeclampsia. Patient is complaining of nausea and occasional vomiting in . Dietary considerations discussed . Vitamin B6 recommended. Advised patient to call/come in if she isunable to keep any food or fluids down in a 24-hour period. Patient desires aneuploidy screening. Contact information for integrated genetics given to patient to check on insurance coverage. Patient considering carrier screening testing. Contact information for myriad labs given to patient to checkon insurance coverage.Chery Schilling RN [facility] History of Present illness Narrative* Chery Schilling RN - 08/07/2022 10:15 AM EDT # 1 - Date: 09/08/19, Sex: Male, Weight: 6 lb 13 oz (3.09 kg), GA: 40w1d, Delivery: Vaginal, Vacuum(Extractor), Apgar1: 7, Apgar5: 9, Living: Living, Comments: spontaneous labor, thick meconium, prolonged second stage, maternal exhaustion, pushed times4 hours, CAN x1 loose, 2nd degree vaginal extension laceration right side, preeclampsia # 2 - Date: None, Sex: None, Weight: None, GA: None, Delivery: None, Apgar1: None, Apgar5: None, Living: None, Comments: None [facility]23 NoteHNO ID: [id number] Author: Emmy Lilly PA-C Service: ? Author Type: Physician Processing Technologist Type: Progress Notes Filed: 07/07/2022 1:46 PM Note Text: This note was created using GoMetroriter. Subjective Meredith Marcelino is a 32 year old female. HPI Presents with sore throat over the past 3 days. Her son had a fever about a week ago but seem to only last a day and then he was better. She thought maybe she had an allergy flare and tried some Claritin but was not helping. Her right ear is bothering her as well. No cough or runny nose. No vomiting. She had some hot flashes but does not know if she has had a fever. Review of Systems Constitutional: Positive for chills. Negative for fever. HENT: Positive for ear pain and sore throat. Negative for congestion. Eyes: Negative. Respiratory: Negative. Cardiovascular: Negative. Gastrointestinal: Negative. Genitourinary: Negative. Musculoskeletal: Negative. All other systems reviewed and are negative. PAST MEDICAL HISTORY Diagnosis Date Anxiety ASCUS Pap 2018 neg HPV Migraines Preeclampsia complicating hypertension started two days after delivery was on low dose lisinopril for 3 weeks Current Outpatient Medications Medication Sig Dispense Refill acetaminophen 325 mg-caffeine 40 mg-butalbital 50 mg (FIORICET) per tablet Take 1 tablet by mouth every 4 hours as needed for headache. Do not exceed 6 tablets in 24 hours. 12 tablet 0 Cholecalciferol, Vitamin D3, 125 mcg (5,000 unit) cap Take 1 capsule by mouth once daily. 30 capsule 11 escitalopram oxalate (LEXAPRO) 20 mg tablet Take 1 tablet by mouth once daily. 90 tablet 1 MAGNESIUM ORAL Take 10 mg by mouth daily at bedtime. acetaminophen (TYLENOL) 325 mg tablet Take 650 mg by mouth every 6 hours as needed. amoxicillin (AMOXIL) 500 mg capsule Take 1 capsule by mouth twice daily for 10 days. 20 capsule 0 norgestimate 0.25 mg-ethinyl estradiol 35 mcg (SPRINTEC) 0.25-35 mg-mcg per tablet Take 1 tablet by mouth once daily. 84 tablet 3 No current facility-administered medications for this visit. PAST SURGICAL HISTORY Procedure Laterality Date EXTRACTION, ERUPTED TOOTH OR EXPOSED ROOT (ELEVATION AND/OR FORCEPS REMOVAL) 2010 SKIN LESION pre-cancerous FAMILY HISTORY Problem Relation Age of Onset No Known Problems Mother No Known Problems Father other (gluten intolerance) Sister Breast Cancer Maternal Grandmother Diabetes Maternal Grandmother Hypertension Maternal Grandfather Stroke Maternal Grandfather Cancer Maternal Grandfather Skin Ca Dementia Maternal Grandfather Heart Paternal Grandmother Pacemaker other (uterine cancer) Paternal Grandmother Arthritis Paternal Grandfather Social History Tobacco Use Smoking status: Former Packs/day: 0.50 Years: 10.00 Pack years: 5.00 Types: Cigarettes Quit date: 11/26/2018 Years since quittin.6 Smokeless tobacco: Never Vaping Use Vaping Use: Never used Substance Use Topics Alcohol use: Yes Comment: social Drug use: Never Objective BP 98/64 Pulse 83 Temp 36.2 ?C (97.2 ?F) (Tympanic) Resp 18 Wt 68.5 kg (151 lb) LMP 07/06/2022 (Exact Date) SpO2 98% BMI 25.92 kg/m? Physical Exam Vitals reviewed. Constitutional: Appearance: Normal appearance. HENT: Head: Normocephalic and atraumatic. Right Ear: Tympanic membrane, ear canal and external ear normal. Left Ear: Tympanic membrane, ear canal and external ear normal. Nose: Nose normal. Mouth/Throat: Mouth: Mucous membranes are moist. Pharynx: Pharyngeal swelling and posterior oropharyngeal erythema present. No oropharyngeal exudate or uvula swelling. Tonsils: No tonsillar exudate or tonsillar abscesses. 1+ on the right. 1+ on the left. Cardiovascular: Rate and Rhythm: Normal rate and regular rhythm. Heart sounds: Normal heart sounds. Pulmonary: Effort: Pulmonary effort is normal. Breath sounds: Normal breath sounds. Musculoskeletal: Cervical back: Neck supple. Lymphadenopathy: Cervical: Cervical adenopathy present. Skin: General: Skin is warm and dry. Neurological: General: No focal deficit present. Mental Status: She is alert. Assessment and Plan ASSESSMENT/PLAN: 1. Strep pharyngitis - ICD9: 034.0, ICD10: J02.0 - Alere Strep Test positive, no culture pending - Amoxicillin for 10 days. - Discussed supportive care treatment with fluids, rest and analgesia. - Contagious dz precautions discussed- including considered contagious until on antibiotics for 24 hours - The patient should follow up in 3-5 days if symptoms persist or worsen - STREP A MOLECULAR (POC) [facility]05-11-2023 NoteHNO ID: [id number] Author: Geovanny Lake MA Service: ? Author Type: Commercial Credit Lead Type: Progress Notes Filed: 06/22/2022 3:32 PM Note Text: ED Follow Up: Patient discharged from [facility] ED on 06/23/22. 1. How are you feeling since your ED visit? Called pt [facility] for her to call the office back with any questions or concerns Have your symptoms improved or resolved? Called pt [facility] for her to call the office back with any questions or concerns 2. Were you prescribed any medications while in the ED or advised to stop any medication? Called pt [facility] for her to call the office back with any questions or concerns - If yes, were you able to fill your prescriptions? Called pt [facility] for her to call the office back with any questions or concerns -if stopped medication, what was the medication? Called pt left [facility] for her to call the office back with any questions or concerns 3. Were you advised to schedule a follow up appointment with your provider? Called pt left for her to call the office back with any questions or concerns - If no, Do you feel like you need an appointment scheduled? Called pt left VM for her to call the office back with any questions or concerns - If yes, Do you need this scheduled now or has this already been scheduled? Called pt left for her to call the office back with any questions or concerns 4. Were you able to contact the office or computer operations specialist provider prior to your ED visit? Called pt left for her to call the office back with any questions or concerns 5. Is there anything else I can do for you today? Called pt [facility] for her to call the office back with any questions [facility] concerns[facility] History of Present illness Narrative* Geovanny Lake MA - 06/22/2022 3:30 PM EDT ED Follow Up: Patient discharged from [facility] ED on 06/23/22. 1. How are you feeling since your ED visit? Called pt left for her to call the office back with any questions or concerns Have your symptoms improved or resolved? Called pt left for her to call the office back with anyquestions or concerns 2. Were you prescribed any medications while in the ED or advised to stop any medication? [facility] with any questions or concerns - If yes, were you able to fill your prescriptions? Called pt left for her to call the office back with any questions or concerns -if stopped medication, what was the medication? Called pt left VM for her to call the office back with any questions or concerns 3. Were you advised to schedule a follow up appointment with your provider? Called pt left VM for her to call the office back with any questions or concerns - If no, Do you feel like you need an appointment scheduled? Called pt left VM for her to call the office back with any questions or concerns - If yes, Do you need this scheduled now or has this already been scheduled? Called pt left for her to call the office back with any questions or concerns 4. Were you able to contact the office or computer operations specialist provider prior to your ED visit? Called pt left for her to call the office back with any questions or concerns 5. Is there anything else I can do for you today? Called pt left for her to call the office backwith any questions or concerns [facility] in [facility] encounter[facility] NotePatient Outreach (AGINTMLW) MEREDITH MARCELINO ([id number]) 1990 F Date Time Provider Department 06/22/22 GEOVANNY LAKE AGINTMLJaya During your visit today, we recorded the following information about you: Geovanny Lake MA 06/22/2022 3:32 PM Signed ED Follow Up: Patient discharged from [facility] ED on 06/23/22. 1. How are you feeling since your ED visit? Called pt left for her to call the office back with any questions or concerns Have your symptoms improved or resolved? Called pt left for her to call the office back with any questions or concerns 2. Were you prescribed any medications while in the ED or advised to stop any medication? Called pt left for her to call the office back with any questions or concerns - If yes, were you able to fill your prescriptions? Called pt left for her to call the office back with any questions or concerns -if stopped medication, what was the medication? Called pt left VM for her to call the office back with any questions or concerns 3. Were you advised to schedule a follow up appointment with your provider? Called pt left VM for her to call the office back with any questions or concerns - If no, Do you feel like you need an appointment scheduled? Called pt left VM for her to call the office back with any questions or concerns - If yes, Do you need this scheduled now or has this already been scheduled? Called pt left VM for her to call the office back with any questions or concerns 4. Were you able to contact the office or computer operations specialist provider prior to your ED visit? Called pt left VM for her to call the office back with any questions or concerns 5. Is there anything else I can do for you today? Called pt left for her to call the office back with any questions or concerns Allergies As of Date: 06/22/2022 Noted Allergy Reaction SULFA (SULFONAMIDE ANTIBIOTICS) 09/05/2016 4 - Hives SULFASALAZINE 09/06/2015 4 - Hives Date Reviewed: 06/21/2022 Reviewed by: Ty Knowles RN - Fully Assessed Prescriptions as of 06/22/2022 - acetaminophen 325 mg-caffeine 40 mg-butalbital 50 mg (FIORICET) per tablet Take 1 tablet by mouth every 4 hours as needed for headache. Do not exceed 6 tablets in 24 hours. - Cholecalciferol, Vitamin D3, 125 mcg (5,000 unit) cap Take 1 capsule by mouth once daily. - escitalopram oxalate (LEXAPRO) 20 mg tablet Take 1 tablet by mouth once daily. - norgestimate 0.25 mg-ethinyl estradiol 35 mcg (SPRINTEC) 0.25-35 mg-mcg per tablet Take 1 tablet by mouth once daily. - MAGNESIUM ORAL Take 10 mg by mouth daily at bedtime. - acetaminophen (TYLENOL) 325 mg tablet Take 650 mg by mouth every 6 hours as needed. Problem List As Of Date 06/22/2022 Noted Resolved Migraine without aura, intractable, without sta*08/05/2018 JIN (generalized anxiety disorder) [F41.1] 08/05/2018 Nausea and vomiting in [O21.9] 01/16/2019 09/16/2019 History of anxiety [Z86.59] 01/16/2019 Patient request for diagnostic testing [Z01.89] 01/16/2019 09/16/2019 Abnormal glucose complicating [O99.81*06/23/2019 09/16/2019 Severe dysmenorrhea [N94.6] 09/06/2015 Diastasis recti [M62.08] 10/23/2019 Vitamin D deficiency [E55.9] 05/16/2022 Encounter Status:Closed by GEOVANNY LAKE on 06/22/22[facility] 06-21-[facility] Miscellaneous Notes* Telephone Encounter - Jessica Muñiz MA - 06/21/2022 1:13 PM EDT Pt. Lm on requesting appointment for migraines. Requesting apt. For this week. Please help schedule. Thanks. Jessica Muñiz MA documented in this encounterProm[facility]05-04-[facility]23 Miscellaneous Notes* Telephone Encounter - Freda Johnson MA - 06/15/2022 3:31 PM EDT Pharmacy has a valid script Freda Johnson MA documented in this encounterPromedica [facility]03-30-2023 NoteHNO ID: [id number] Author: Mari Ochoa APRN.PUZZLE ASSEMBLER Service: ? Author Type: Nurse Practitioner Type: Progress Notes Filed: 05/11/2022 11:31 AM Note Text: [place] [address] Date of Evaluation: 05/11/2022 Patient Name: Meredith Marcelino : 1990 Meredith Marcelino is a 31 year old female who presents for annual wellness visit. I reviewed past medical, surgical, social, and family histories today and updated chart. Allergies, chronic medications, and supplements were also reviewed. 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 Was working out for 8 weeks previously but hasn't had motivation. Weight Trend: Last 2 Encounter Wt Readings: Date: Wt: 05/11/2022 69.4 kg (153 lb) 02/08/2022 68.7 kg (151 lb 6.4 oz) Eating Habits: Patient does not maintain healthy eating habits in the last few weeks Types of food excess junk food- salty foods Caffeine- 1 pop a day Tobacco Use: Tobacco Use: .5 packs/day, for 10 years. Quit 11/26/2018. Types: Cigarettes Alcohol Use: No Active Problem List/Chronic Problems There are no active hospital problems to display for this patient. Health Maintenance DEPRESSION ASSESSMENT THE LAST 2 WEEKS, HAVE YOU BEEN BOTHERED BY ANY OF THE FOLLOWING? - Little interest or pleasure in doing things 1 SEVERAL DAYS Feeling down, depressed, or hopeless 2 Trouble falling or staying asleep, or sleeping too much 2 Feeling tired or having little energy 3 Poor appetite or overeating 2 Feeling bad yourself-you are a failure or have let yourself or others 2 Trouble concentrating, like reading the paper or watching TV 0 Moving/speaking slowly (others notice) OR being more fidgety/restless 0 Thoughts that you would be better off or of hurting yourself 0 PHQ TOTAL SCORE = 12 PHQ problems effect on difficulty of work, home, and social activity: 2 - SOMEWHAT DIFFICULT Feeling nervous, anxious, or on edge 2 Over half the days Not being able to stop or control worrying 2 Over half the days Worrying too much about different things 2 Over half the days Trouble relaxing 1 Several days Being so restless that it's hard to sit still 1 Several days Being easily annoyed or irritable 3 Nearly every day Feeling afraid as if something awful might happen 2 Over half the days JIN-7 Anxiety Score 13 If you checked off any problems, how difficult have these problems made it for you to do your work, take care of things at home, or get along with other people? Somewhat difficult HEALTH MAINTENANCE REVIEW: Immunizations up to date Immunization History Administered Date(s) Administered COVID-19 original vaccine, age 12+ yr, monovalent (Achieved.co - PURPLE TOP) 05/11/2020 06/01/2020 02/07/2021 Haemophilus influenzae b (Hib) vaccine, unspecified formulation 1990 1990 1990 08/22/1991 diphtheria tetanus pertussis (DTP) vaccine 1990 1990 1990 diphtheria tetanus pertussis (DTaP) vaccine, unspecified formulation 02/27/1992 03/09/1995 hepatitis A (HepA) vaccine, unspecified formulation 06/25/2008 hepatitis B (HepB) vaccine, 3-dose series, age 0 yr - 19 yr (ENGERIX B-PEDS, RECOMBIVAX HB-PEDS) 06/25/2008 influenza (IIV3) vaccine, age 3+ yr, trivalent (AFLURIA, FLULAVAL, FLUVIRIN, FLUZONE) 10/14/2018 influenza (RIV4) vaccine, recombinant, quadrivalent, PF (FLUBLOK) 12/22/2019 influenza vaccine, unspecified formulation 01/16/2020 measles mumps rubella (MMR) vaccine (M-M-R II, PRIORIX) 08/22/1991 09/24/2002 meningococcal (MenACWY-D) vaccine, quadrivalent (MENACTRA) 06/25/2008 poliovirus vaccine, unspecified formulation 1990 1990 02/27/1992 03/09/1995 tetanus diphtheria pertussis (Tdap) vaccine, age 7+ yr (ADACEL, BOOSTRIX) 06/25/2008 08/05/2018 06/02/2019 06/20/2019 Review of Systems Constitutional: Positive for unexpected weight change (+10 pound weight gain). Negative for activity change, appetite change, chills, diaphoresis, fatigue and fever. HENT: Negative for dental problem, hearing loss, tinnitus and trouble swallowing. Eyes: Negative for visual disturbance. Respiratory: Negative for apnea, cough and shortness of breath. Cardiovascular: Negative for chest pain, palpitations and leg swelling. Gastrointestinal: Negative for abdominal distention, abdominal pain, blood in stool, constipation, diarrhea and nausea. Endocrine: Negative. Genitourinary: Negative for dysuria, frequency, hematuria, menstrual problem and urgency. Musculoskeletal: Negative for arthralgias, back pain, joint swelling, myalgias and neck pain. Skin: Negative (more content not included)...[facility] 05-11-2022 Instructions* Patient Instructions* Mari Ochoa APRN.[facility] - 05/11/2022 10:26 AM EDT [facility] Outpatient Lab Hours For your convenience, the outpatient laboratory is open during the following hours: Sunday- Sunday 7 a.m. - 4:30 p.m. Sunday: 8 a.m. - 11:45 a.m. The outpatient lab is closed on Sundays and . GET HELP If you have symptoms of clinical depression, you can get help by doing one or more of the followin. Please talk with your doctor. 2. If you are already in treatment, make sure you contact and update your doctor or therapist. 3. Review additional options for care based on patient or provider preference: Central/Multiple Locations: [facility]: [address] [facility] - [phone] Elgin Nobles: [address] [facility] - [phone] [facility] [employer] [facility]: [address] [facility] - [phone] [facility]: 7800 [facility] - [phone] [facility]: 4500 [facility] - [phone] (Medicaid only) [facility]: Multiple Locations - [phone] [facility] Department of Psychiatry & Psychology at [phone] (select Option 1) or [phone] (select Option 1) [facility]: Multiple Locations - [phone] (Medicaid only) Sher Reeves [facility] - Multiple Locations - [phone] (Medicaid only) [facility], [facility] Multiple Locations - [phone] [facility]: Multiple Locations - [phone] [facility]: Multiple Locations - [phone] [facility] Locations: [facility]: [address] [facility] - [phone] [facility]: [address] [facility]. [place] - [phone] Danay Varghese PhD and Associates: [address] [place] - [phone] [facility] - [address] [facility] [address] [place] - [phone] Duncan Riggins MD: [address] [facility] - [phone] [facility] [address], [place] - [phone] [facility]: [address], [place] - [phone] [facility], [address] [facility] - [phone] [place] Locations: Juju Anderson [facility]: [address], [place] - [phone] Danay Varghese PhD [facility]: [address] - [phone] [facility]: [address] [facility] - [phone] [facility] [address] [facility] - [phone] [facility], [address] [facility], [address], [place] - [phone] [facility], [facility], [address] [facility] [facility] - [phone] [facility]: [address] [facility] - [phone] [place] Locations: [facility] Services [facility] -[phone] [facility] L [address] Odom, [facility] - [phone] [facility] Psychiatry: 1 [facility] - [phone] [facility]: [address] [facility] - [phone] [facility] - 256 [facility] - [phone] [place] Locations: [facility] - Janak Herrmann MD Psychiatry, Sleep Medicine - [address] [place] [facility] - [phone] or [phone] Aurora Sutton MD - [address] [facility] [phone] [facility] - SUJATA Lacey, DCSW - [address] - [phone] [facility] - [address] [facility] - [phone] [facility] (NO Commercial Insurance accepted) - [address] [facility] [phone] [facility] - Vince Edwards, [facility], [facility] - [address] [facility] - [phone] Susy Tsang HEALTH CARE MARKETING MANAGER - [address], [place] [phone] Cher Spencer, [facility] - [address] [place] [phone] Ty Mcallister, PhD - [address] [phone] Sloane Housermiah, HEALTH CARE MARKETING MANAGER - [address] [place] [phone] Geovanny Villa, [facility], [facility] (No Medicare, [place], [place]) - [address] [place] [address], [place] [phone] Alexandro Charlesams, [facility] - [address], [place] [phone] Lai Bueno, [facility] - [address] [place] [phone] For additional resources and information please call or review the website: [email or web address] If you are feeling suicidal, please call [employer], , or the [employer] - Share Your Passion! Suicide Hotline , Call 311, or go to your nearest emergency room documented in this encounterProm[facility]03-[facility] History of Present illness Narrative* Mari Ochoa APRN.CNP - 05/11/2022 10:02 AM EDT Images from the original note were not included. [address] [address] Date of Evaluation: 05/11/2022 Patient Name: Meredith Marcelino : 1990 Meredith Marcelino is a 31 year old female who presents for annual wellness visit. I reviewed past medical, surgical, social, and family histories today and updated chart. Allergies, chronic medications, and supplements were also reviewed. 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 Was working out for 8 weeks previouslybut hasn't had motivation. Weight Trend: Last 2 Encounter Wt Readings: Date: Wt: 05/11/2022 69.4 kg (153 lb) 02/08/2022 68.7 kg (151 lb 6.4 oz) Eating Habits: Patient does not maintain healthy eating habits in the last few weeks Types of food excess junk food- salty foods Caffeine- 1 pop a day Tobacco Use: Tobacco Use: .5 packs/day, for 10 years. Quit 11/26/2018. Types: Cigarettes Alcohol Use: No Active Problem List/Chronic Problems There are no active hospital problems to display for this patient. Health Maintenance DEPRESSION ASSESSMENT THE LAST 2 WEEKS, HAVE YOU BEEN BOTHERED BY ANY OF THE FOLLOWING? - Little interest or pleasure in doing things 1 SEVERAL DAYS Feeling down, depressed, or hopeless 2 Trouble falling or staying asleep, or sleeping too much 2 Feeling tired or having little energy 3 Poor appetite or overeating 2 Feeling bad yourself-you are a failure or have let yourself or others 2 Trouble concentrating, like reading the paper or watching TV 0 Moving/speaking slowly (others notice) OR being more fidgety/restless 0 Thoughts that you would be better off or of hurting yourself 0 PHQ TOTAL SCORE = 12 PHQ problems effect on difficulty of work, home, and social activity: 2 - SOMEWHAT DIFFICULT Feeling nervous, anxious, or on edge 2 Over half the days Not being able to stop or control worrying 2 Over half the days Worrying too much about different things 2 Over half the days Trouble relaxing 1 Several days Being so restless that it's hard to sit still 1 Several days Being easily annoyed or irritable 3 Nearly every day Feeling afraid as if something awful might happen 2 Over half the days JIN-7 Anxiety Score 13 If you checked off any problems, how difficult have these problems made it for you to do your work,take care of things at home, or get along with other people? Somewhat difficult HEALTH MAINTENANCE REVIEW: Immunizations up to date Immunization History Administered Date(s) Administered COVID-19 original vaccine, age 12+ yr, monovalent (Achieved.co - PURPLE TOP) 05/11/2020 06/01/2020 02/07/2021 Haemophilus influenzae b (Hib) vaccine, unspecified formulation 1990 1990 1990 08/22/1991 diphtheria tetanus pertussis (DTP) vaccine 1990 1990 1990 diphtheria tetanus pertussis (DTaP) vaccine, unspecified formulation 02/27/1992 03/09/1995 hepatitis A (HepA) vaccine, unspecified formulation 06/25/2008 hepatitis B (HepB) vaccine, 3-dose series, age 0 yr - 19 yr (ENGERIX B-PEDS, RECOMBIVAX HB-PEDS) 06/25/2008 influenza (IIV3) vaccine, age 3+ yr, trivalent (AFLURIA, FLULAVAL, FLUVIRIN, FLUZONE) 10/14/2018 influenza (RIV4) vaccine, recombinant, quadrivalent, PF (FLUBLOK) 12/22/2019 influenza vaccine, unspecified formulation 01/16/2020 measles mumps rubella (MMR) vaccine (M-M-R II, PRIORIX) 08/22/1991 09/24/2002 meningococcal (MenACWY-D) vaccine, quadrivalent (MENACTRA) 06/25/2008 poliovirus vaccine, unspecified formulation 1990 1990 02/27/1992 03/09/1995 tetanus diphtheria pertussis (Tdap) vaccine, age 7+ yr (ADACEL, BOOSTRIX) 06/25/2008 08/05/2018 06/02/2019 06/20/2019 Review of Systems Constitutional: Positive for unexpected weight change (+10 pound weight gain). Negative for activity change, appetite change, chills, diaphoresis, fatigue and fever. HENT: Negative for dental problem, hearing loss, tinnitus and trouble swallowing. Eyes: Negative for visual disturbance. Respiratory: Negative for apnea, cough and shortness of breath. Cardiovascular: Negative for chest pain, palpitations and leg swelling. Gastrointestinal: Negative for abdominal distention, abdominal pain, blood in stool, constipation, diarrhea and nausea. Endocrine: Negative. Genitourinary: Negative for dysuria, frequency, hematuria, menstrual problem and urgency. Musculoskeletal: Negative for arthralgias, back pain, joint swelling, myalgias and neck pain. Skin: Negative. Allergic/Immunologic: Negative for environmental allergies. Neurological: Positive for headaches. Negative for dizziness, weakness, light- headedness and numbness. Hematological: Does not bruise/bleed easily. Psychiatric/Behavioral: Positive for dysphoric mood (on medication) and sleep disturbance. The patient is nervous/anxious (currently on medication). PAIN: Negative for pain, history of chronic pain, or current treatment for a chronic pain condition. ALLERGIES Allergen Reactions Sulfa (Sulfonamide * Hives Sulfasalazine Hives norgestimate 0.25 mg-ethinyl estradiol 35 mcg (SPRINTEC) 0.25-35 mg-mcg per tablet Take 1 tablet bymouth once daily. MAGNESIUM ORAL Take 10 mg by mouth daily at bedtime. acetaminophen (TYLENOL) 325 mg tablet Take 650 mg by mouth every 6 hours as needed. escitalopram oxalate (LEXAPRO) 20 mg tablet Take 1 tablet by mouth once daily. PAST MEDICAL HISTORY Diagnosis Date Anxiety ASCUS Pap 2017 neg HPV Migraines Preeclampsia complicating hypertension started two days after delivery was on low dose lisinopril for 3 weeks PAST SURGICAL HISTORY Procedure Laterality Date EXTRACTION, ERUPTED TOOTH OR EXPOSED ROOT (ELEVATION AND/OR FORCEPS REMOVAL) 2009 SKIN LESION pre-cancerous FAMILY HISTORY Problem Relation Age of Onset No Known Problems Mother No Known Problems Father other (gluten intolerance) Sister Breast Cancer Maternal Grandmother Diabetes Maternal Grandmother Hypertension Maternal Grandfather Stroke Maternal Grandfather Cancer Maternal Grandfather Skin Ca Dementia Maternal Grandfather Heart Paternal Grandmother Pacemaker other (uterine cancer) Paternal Grandmother Arthritis Paternal Grandfather Last 3 Encounter BP Readings: Date: BP: 05/11/2022 104/66 02/08/2022 110/60 01/29/2022 122/84 BP 104/66 Pulse 91 Temp 98.3 Resp 18 Ht 5' 3.5 (1.61m) Wt 153 lb (69.4kg) SpO2 98% LMP 08/06/2021 BMI 26.67 kg/(m^2). Physical Exam Vitals and nursing note reviewed. Constitutional: Appearance: Normal appearance. She is well-developed. HENT: Head: Normocephalic. Right Ear: External ear normal. A middle ear effusion is present. Tympanic membrane is not injectedor erythematous. Left Ear: Tympanic membrane and external ear normal. Tympanic membrane is not injected or erythematous. Ears: Comments: Mild irritation in bilateral ear canals Trace effusion with right TM Nose: Nose normal. Mouth/Throat: Lips: [place]. Mouth: Mucous membranes are moist. Pharynx: Oropharynx is clear. Eyes: General: Vision grossly intact. Conjunctiva/sclera: Conjunctivae normal. Pupils: Pupils are equal, round, and reactive to light. Neck: Thyroid: No thyroid mass or thyromegaly. Cardiovascular: Rate and Rhythm: Normal rate and regular rhythm. Pulses: Normal pulses. Heart sounds: Normal heart sounds. No murmur heard. Pulmonary: Effort: Pulmonary effort is normal. No respiratory distress. Breath sounds: Normal breath sounds and air entry. Abdominal: General: Bowel sounds are normal. Palpations: Abdomen is soft. There is no hepatomegaly or splenomegaly. Tenderness: There is no abdominal tenderness. Musculoskeletal: Cervical back: Normal range of motion and neck supple. Right lower leg: No edema. Left lower leg: No edema. Lymphadenopathy: Cervical: No cervical adenopathy. Skin: General: Skin is warm and dry. Neurological: General: No focal deficit present. Mental Status: She is alert and oriented to person, place, and time. Motor: Motor function is intact. Psychiatric: Mood and Affect: Mood and affect normal. Speech: Speech normal. Behavior: Behavior normal. Behavior is cooperative. Thought Content: Thought content normal. Cognition and Memory: Cognition normal. Judgment: Judgment normal. ASSESSMENT/PLAN: 1. Well adult exam - ICD9: V70.0, ICD10: Z00.00 (primary diagnosis) - Counseled on healthy diet and regular exercise - Recommend vitamin containing 0.4 mg of folic acid - Discussed need and benefit for weight loss. BMI 26.68 kg/(m^2) - Depression screening tool completed and reviewed with patient. Based on score and interview, patient is at risk for depression and recommended increasing medication. - Follow up for annual exam in one year - LIPID PANEL BASIC - COMP METABOLIC PANEL - CBC - TSH BLD - T4 FREE/FREE THYROX - VITAMIN D 25 HYDROXY 2. JIN (generalized anxiety disorder) - ICD9: 300.02, ICD10: F41.1 - Discussed increasing her dose of Lexapro to 20 mg daily - F/U in 6-8 weeks - ESCITALOPRAM 20 MG TABLET 3. Vitamin D deficiency - ICD9: 268.9, ICD10: E55.9 - Check vitamin D 4. Weight gain - ICD9: 783.1, ICD10: R63.5 - Diet and exercise - TSH BLD - T4 FREE/FREE THYROX 5. Screening for depression - ICD9: V79.0, ICD10: Z13.31 - See above - DEPRESSION SCREENING/ASSESSMENT Discussed health maintenance, including regular aerobic exercise, low fat diet, and periodic exams. Return in about 8 weeks (around 07/04/2022) for Anxiety, Depression- can be virtual. Mari Ochoa APRN.[place] documented in this encounterPromedica [facility]lower [facility]03-[facility]23 Miscellaneous Notes* Telephone Encounter - Freda Johnson MA - 04/17/2022 10:23 AM EST Patient is currently scheduling appointment. Freda Johnson MA * Telephone Encounter - Freda Johnson MA - 04/17/2022 7:54 AM EST Pharmacy requesting refills as follows: Last Office Visit 04/18/21. Last Refill 07/12/21. Patient needs appt Requested Prescriptions Pending Prescriptions Disp Refills escitalopram oxalate (LEXAPRO) 10 mg tablet [Pharmacy Med Name: ESCITALOPRAM 10 MG TABLET] 90 tablet 2 Sig: TAKE 1 TABLET BY MOUTH EVERY DAY Please review and advise. Freda Johnson MA documented in this encounterPromedica Flower Hospital12-28-2022 NoteHNO ID: [id number] Author: Barb Taylor APRN.[place] Service: ? Author Type: Nurse Practitioner Type: Progress Notes Filed: 02/08/2022 8:11 AM Note Text: This note was created using NoteWriter. Subjective Meredith Marcelino is a 31 year old female pt of MALINI Ochoa here today for an acute visit for complaints of abd pain and looser than normal stools. She reports abd/pelvic pain that started 2 days ago. States it is right side lower abd. Reports pain constant dull ache with occasional sharp pains. Reports sharp pains will come with BM or will increase with movement. LMP 01/28/22. She reports having ovarian cyst in mar 2021 and reports it feels similar. Reports looser than normal stools. Denies fever, chills, dysuria, blood in urine, frequency of urine, blood in stool or dark tarry stool, unusual vaginal discharge or bleeding. She has been having daily BM. She just completed course of Augmentin x 10 days yesterday for strep. ALLERGIES Allergen Reactions Sulfa (Sulfonamide * Hives Sulfasalazine Hives Current Outpatient Medications Medication Sig Dispense Refill amoxicillin (POLYMOX, AMOXIL) 500 mg capsule Take 1 capsule by mouth twice daily for 10 days. 20 capsule 0 norgestimate 0.25 mg-ethinyl estradiol 35 mcg (SPRINTEC) 0.25-35 mg-mcg per tablet Take 1 tablet by mouth once daily. 84 tablet 3 escitalopram oxalate (LEXAPRO) 10 mg tablet TAKE 1 TABLET BY MOUTH EVERY DAY 90 tablet 2 MAGNESIUM ORAL Take 10 mg by mouth daily at bedtime. (Patient not taking: Reported on 11/23/2021) acetaminophen (TYLENOL) 325 mg tablet Take 650 mg by mouth every 6 hours as needed. No current facility-administered medications for this visit. ACTIVE PROBLEM LIST Migraine Without Aura, Intractable, Without Status Migrainosus Jin (Generalized Anxiety Disorder) History of Anxiety Severe Dysmenorrhea Diastasis Recti PAST MEDICAL HISTORY Diagnosis Date Anxiety ASCUS Pap 2017 neg HPV Migraines Preeclampsia complicating hypertension started two days after delivery was on low dose lisinopril for 3 weeks PAST SURGICAL HISTORY Procedure Laterality Date EXTRACTION, ERUPTED TOOTH OR EXPOSED ROOT (ELEVATION AND/OR FORCEPS REMOVAL) 2009 SKIN LESION pre-cancerous Social History Tobacco Use Smoking status: Former Packs/day: 0.50 Years: 10.00 Pack years: 5.00 Types: Cigarettes Quit date: 11/26/2018 Years since quittin.2 Smokeless tobacco: Never Vaping Use Vaping Use: Never used Substance Use Topics Alcohol use: Yes Comment: social Drug use: No Family History Problem Relation Age of Onset No Known Problems Mother No Known Problems Father other (gluten intolerance) Sister Breast Cancer Maternal Grandmother Diabetes Maternal Grandmother Hypertension Maternal Grandfather Stroke Maternal Grandfather Cancer Maternal Grandfather Skin Ca Dementia Maternal Grandfather Heart Paternal Grandmother Pacemaker other (uterine cancer) Paternal Grandmother Arthritis Paternal Grandfather Review of Systems Constitutional: Negative for chills, fatigue and fever. Respiratory: Negative for cough, shortness of breath and wheezing. Cardiovascular: Negative for chest pain and palpitations. Gastrointestinal: Positive for abdominal pain. Negative for abdominal distention, blood in stool, constipation, diarrhea, nausea and vomiting. See HPI Reports she feels bloated. Genitourinary: Positive for pelvic pain. Negative for difficulty urinating, dysuria, flank pain, frequency, menstrual problem, urgency, vaginal bleeding, vaginal discharge and vaginal pain. Musculoskeletal: Negative for arthralgias and back pain. Objective 02/08/22 0734 BP: 110/60 BP Site: Left Arm BP Position: Sitting BP Cuff Size: Regular Adult Pulse: 90 Resp: 18 Temp: 36.4 ?C (97.6 ?F) TempSrc: Oral SpO2: 98% Weight: 68.7 kg (151 lb 6.4 oz) Height: 161.3 cm (5' 3.5 ) Physical Exam Vitals and nursing note reviewed. Constitutional: General: She is not in acute distress. Appearance: Normal appearance. She is not ill-appearing. Cardiovascular: Rate and Rhythm: Normal rate and regular rhythm. Pulses: Normal pulses. Heart sounds: Normal heart sounds. Pulmonary: Effort: Pulmonary effort is normal. Breath sounds: Normal breath sounds. Abdominal: General: Abdomen is flat. Bowel sounds are normal. There is no distension. Palpations: Abdomen is soft. There is no mass. Tenderness: There is abdominal tenderness in the right lower quadrant, suprapubic area and left lower quadrant. There is no right CVA tenderness, left CVA tenderness, guarding or rebound. Positive signs include psoas sign. Negative signs include Olivares's sign, McBurney's sign and obturator sign. Skin: General: Skin is warm and dry. Neurological: Mental Status: She is alert. ASSESSMENT/PLAN: 1. Pelvic pain - ICD9: [id number], ICD10: R10.2 (primary diagnosis) Etiology unclear, exam with (more content not included)...[facility]12-[facility] History of Present illness Narrative* Barb Taylor, BEAUTY THERAPIST.PUZZLE ASSEMBLER - 02/08/2022 7:40 AM EST This note was created using NoteWriter. Subjective Meredith Marcelino is a 31 year old female pt of LAB TESTER Queden here today for an acute visit for complaints of abd pain and looser than normal stools. She reports abd/pelvic pain that started 2 days ago. States it is right side lower abd. Reports pain constant dull ache with occasional sharp pains. Reports sharp pains will come with BM or will increase with movement. LMP 01/28/22. She reports having ovarian cyst in mar 2021 and reports it feels similar. Reports looser than normal stools. Denies fever, chills, dysuria, blood in urine, frequency of urine, blood in stool or dark tarry stool, unusual vaginal discharge or bleeding. She has been having daily BM. She just completed course of Augmentin x 10 days yesterday for strep. ALLERGIES Allergen Reactions Sulfa (Sulfonamide * Hives Sulfasalazine Hives Current Outpatient Medications Medication Sig Dispense Refill amoxicillin (POLYMOX, AMOXIL) 500 mg capsule Take 1 capsule by mouth twice daily for 10 days. 20 capsule 0 norgestimate 0.25 mg-ethinyl estradiol 35 mcg (SPRINTEC) 0.25-35 mg-mcg per tablet Take 1 tablet bymouth once daily. 84 tablet 3 escitalopram oxalate (LEXAPRO) 10 mg tablet TAKE 1 TABLET BY MOUTH EVERY DAY 90 tablet 2 MAGNESIUM ORAL Take 10 mg by mouth daily at bedtime. (Patient not taking: Reported on 11/23/2021) acetaminophen (TYLENOL) 325 mg tablet Take 650 mg by mouth every 6 hours as needed. No current facility-administered medications for this visit. ACTIVE PROBLEM LIST Migraine Without Aura, Intractable, Without Status Migrainosus Jin (Generalized Anxiety Disorder) History of Anxiety Severe Dysmenorrhea Diastasis Recti PAST MEDICAL HISTORY Diagnosis Date Anxiety ASCUS Pap 2017 neg HPV Migraines Preeclampsia complicating hypertension started two days after delivery was on low dose lisinopril for 3 weeks PAST SURGICAL HISTORY Procedure Laterality Date EXTRACTION, ERUPTED TOOTH OR EXPOSED ROOT (ELEVATION AND/OR FORCEPS REMOVAL) 2009 SKIN LESION pre-cancerous Social History Tobacco Use Smoking status: Former Packs/day: 0.50 Years: 10.00 Pack years: 5.00 Types: Cigarettes Quit date: 11/26/2018 Years since quittin.2 Smokeless tobacco: Never Vaping Use Vaping Use: Never used Substance Use Topics Alcohol use: Yes Comment: social Drug use: No Family History Problem Relation Age of Onset No Known Problems Mother No Known Problems Father other (gluten intolerance) Sister Breast Cancer Maternal Grandmother Diabetes Maternal Grandmother Hypertension Maternal Grandfather Stroke Maternal Grandfather Cancer Maternal Grandfather Skin Ca Dementia Maternal Grandfather Heart Paternal Grandmother Pacemaker other (uterine cancer) Paternal Grandmother Arthritis Paternal Grandfather Review of Systems Constitutional: Negative for chills, fatigue and fever. Respiratory: Negative for cough, shortness of breath and wheezing. Cardiovascular: Negative for chest pain and palpitations. Gastrointestinal: Positive for abdominal pain. Negative for abdominal distention, blood in stool, constipation, diarrhea, nausea and vomiting. See HPI Reports she feels bloated. Genitourinary: Positive for pelvic pain. Negative for difficulty urinating, dysuria, flank pain, frequency, menstrual problem, urgency, vaginal bleeding, vaginal discharge and vaginal pain. Musculoskeletal: Negative for arthralgias and back pain. Objective 02/08/22 0734 BP: 110/60 BP Site: Left Arm BP Position: Sitting BP Cuff Size: Regular Adult Pulse: 90 Resp: 18 Temp: 36.4 C (97.6 F) TempSrc: Oral SpO2: 98% Weight: 68.7 kg (151 lb 6.4 oz) Height: 161.3 cm (5' 3.5 ) Physical Exam Vitals and nursing note reviewed. Constitutional: General: She is not in acute distress. Appearance: Normal appearance. She is not ill-appearing. Cardiovascular: Rate and Rhythm: Normal rate and regular rhythm. Pulses: Normal pulses. Heart sounds: Normal heart sounds. Pulmonary: Effort: Pulmonary effort is normal. Breath sounds: Normal breath sounds. Abdominal: General: Abdomen is flat. Bowel sounds are normal. There is no distension. Palpations: Abdomen is soft. There is no mass. Tenderness: There is abdominal tenderness in the right lower quadrant, suprapubic area and left lower quadrant. There is no right CVA tenderness, left CVA tenderness, guarding or rebound. Positive signs include psoas sign. Negative signs include Olivares's sign, McBurney's sign and obturator sign. Skin: General: Skin is warm and dry. Neurological: Mental Status: She is alert. ASSESSMENT/PLAN: 1. Pelvic pain - ICD9: [id number], ICD10: R10.2 (primary diagnosis) Etiology unclear, exam with mild lower abd tenderness, no guarding or rebound. - Work up with Ultrasound transvaginal - Ziebach low residue diet - US FEMALE PELVIS TRANSVAG - UA as ordered - call if persists or worsens 2. Lower abdominal pain - ICD9: 789.09, ICD10: R10.30 Etiology unclear Differential Diagnosis includes IBS, IBD, Ovarian cyst, and Cystitis - Work up with Ultrasound transvaginal - US FEMALE PELVIS TRANSVAG Barb Taylor APRN.[place] documented in this encounterPromed[facility]10-13-[facility]22 Miscellaneous Notes* Telephone Encounter - Mari Ochoa APRN.CNP - 11/24/2021 2:06 PM EDT Addressed in different encounter. * Telephone Encounter - Zeinab Trejo MA - 11/24/2021 1:54 PM EDT Patient left message stating she ended up going to urgent care yesterday and she was negative for flu and covid. States during the night her fever broke and now today she has developed a rash all over her body. Patient did not know if she needs to be seen or if she should just take benadryl. Pleaseadvise. Zeinab Trejo MA documented in this encounterPromedica [facility]10-12-2022 Instructions* Patient Instructions* Vipul East APRN.[place] - 11/23/2021 2:32 PM EDT How to Manage Common Symptoms Associated with COVID for Adults Fever- Fever is a temperature over 100.4 F and can occur when the body is fighting an infection. Tohelp treat a fever: Drink plenty of fluids and stay well hydrated. Eat small amounts of easy to digest food. Rest. Your body needs rest to recover, but getting up and moving around the house frequently is a good idea. You should try to continue doing your normal daily activities (bathing, toileting, grooming, cooking), though you will probably feel tired, and need to rest often. Avoid any heavy activity or exercise, as this will increase your body temperature. Dress in light clothing and stay covered in a light sheet. Keep the room temperature cool. Take a slightly warm (not cold or cool) bath, or apply damp washcloths to the forehead and wrists. Cough- Cough is a common symptom associated with COVID and can be bothersome. To help treat a cough: Stay well hydrated. Try warm water or tea with lemon and/or honey to help soothe the cough. Use a humidifier to add moisture to the air. Try a product with menthol, like a cough drop or a rub for your chest such as Vicks, which can helpreduce cough. Try cough drops. Avoid smoking and other strong odors or perfumes. Try breathing exercises to keep your lungs open and clear. Take a big deep breath through your noseand hold for 5 seconds before slowly releasing. Repeat frequently, while you are awake. Congestion- Runny nose or nasal congestion can occur with COVID. Treatment can help relieve symptoms: Try OTC nasal saline spray, or nasal saline rinse to relieve mucus congestion. Nasal strips can help keep nasal passages open, to increase airflow. Elevating your head with an extra pillow in bed can help reduce congestion. Using a humidifier can increase moisture in the air, and make breathing easier. Sore Throat- Another common symptom with COVID, can be managed at home by: Stay well hydrated. Gargle with salt water - mix teaspoon salt with 1 cup of warm water and gargle. This helps to loosen mucus in the back of the throat and may reduce discomfort. Try ice chips, popsicles or lozenges to soothe the throat. Nausea/Vomiting/Diarrhea- These are common symptoms, and staying hydrated is most important. If you are nauseous or vomiting, start with small sips of water every 10-15 minutes and increase astolerated. You can try sucking an ice cube too. If tolerating, you can try pedialyte or Gatorade, or flat sprite or saarh-shasta. Start slowly and increase as you are able to. Instead of meals, try smaller, more frequent snacks. Try eating bland foods like crackers, toast, rice, and applesauce. Avoid spicy, greasy or fried foods and dairy containing foods. Even if you aren't feeling hungry due to lack of smell or taste, it is important to try to take in some food when you are able. After drinking and eating, rest in an upright position for up to two hours as needed to help decrease nauseous feelings. Try closing your eyes, avoid moving and watching TV. Avoid strong odors that can make you feel more nauseated. When to seek emergency medical attention Look for emergency warning signs for COVID-19. If having any of these symptoms, seek emergency medical care immediately: Trouble breathing Persistent pain or pressure in the chest New confusion Inability to wake or stay awake Bluish lips or face *This list is not all possible symptoms. Please call your medical provider for any other symptoms that are severe or concerning to you. documented in this encounterPromedica [facility]10-12-2022 History of Present illness Narrative* Vipul East APRN.CNP - 11/23/2021 2:29 PM EDT Subjective HPI Nontoxic or female presents urgent care [facility] symptoms. Duration of symptoms 3 days.Associated symptoms fever body aches chills cough night sweats and fatigue. States she does have some nausea. No vomiting. States son had similar signs and symptoms. His discomfort resolved. Has not used any OTC medications. Most bothersome symptom is fatigue. Denies history of recent COVID- 19 infection. She is vaccinated. Denies chance of . Is not breast- feeding. Denies any high fevers productive cough chest pain shortness of breath pleuritic pain hemoptysis vomiting abdominal pain change in bowel or bladder habits. Past medical history prescription medication use allergies reviewed. .Patient presents with: Fever: KIM, chills, fatigue x 3 days PAST MEDICAL HISTORY Diagnosis Date Anxiety ASCUS Pap 2018 neg HPV Migraines Preeclampsia complicating hypertension started two days after delivery was on low dose lisinopril for 3 weeks PAST SURGICAL HISTORY Procedure Laterality Date EXTRACTION, ERUPTED TOOTH OR EXPOSED ROOT (ELEVATION AND/OR FORCEPS REMOVAL) 2009 SKIN LESION pre-cancerous ALLERGIES Sulfa (Sulfonamide Antibiotics) and Sulfasalazine MEDICATIONS norgestimate 0.25 mg-ethinyl estradiol 35 mcg (SPRINTEC) 0.25-35 mg-mcg per tablet Take 1 tablet bymouth once daily. escitalopram oxalate (LEXAPRO) 10 mg tablet TAKE 1 TABLET BY MOUTH EVERY DAY acetaminophen (TYLENOL) 325 mg tablet Take 650 mg by mouth every 6 hours as needed. MAGNESIUM ORAL Take 10 mg by mouth daily at bedtime. (Patient not taking: Reported on 11/23/2021) FAMILY HISTORY Problem Relation Age of Onset No Known Problems Mother No Known Problems Father other (gluten intolerance) Sister Breast Cancer Maternal Grandmother Diabetes Maternal Grandmother Hypertension Maternal Grandfather Stroke Maternal Grandfather Cancer Maternal Grandfather Skin Ca Dementia Maternal Grandfather Heart Paternal Grandmother Pacemaker other (uterine cancer) Paternal Grandmother Arthritis Paternal Grandfather Social History Tobacco Use Smoking status: Former Packs/day: 0.50 Years: 10.00 Pack years: 5.00 Types: Cigarettes Quit date: 11/26/2018 Years since quittin.9 Smokeless tobacco: Never Vaping Use Vaping Use: Never used Substance Use Topics Alcohol use: Yes Comment: social Drug use: No BP 104/62 Pulse 94 Temp 37.3 C (99.2 F) Resp 21 Wt 68.4 kg (150 lb 12.8 oz) LMP 08/06/2021 (Exact Date) SpO2 99% BMI 26.23 kg/m Review of Systems Constitutional: Positive for chills, fever and malaise/fatigue. HENT: Positive for congestion and sore throat. Negative for ear discharge, ear pain and sinus pain. Eyes: Negative for blurred vision, pain, discharge and redness. Respiratory: Positive for cough. Negative for hemoptysis, sputum production, shortness of breath, wheezing and stridor. Cardiovascular: Negative for chest pain. Gastrointestinal: Positive for nausea. Negative for abdominal pain, diarrhea and vomiting. Musculoskeletal: Positive for myalgias. Skin: Negative for itching and rash. Neurological: Positive for headaches. Negative for dizziness. Objective Physical Exam Constitutional: General: She is not in acute distress. Appearance: She is not diaphoretic. HENT: Head: Normocephalic. Nose: Congestion present. Mouth/Throat: Mouth: Mucous membranes are moist. Pharynx: Oropharynx is clear. No oropharyngeal exudate or posterior oropharyngeal erythema. Eyes: Conjunctiva/sclera: Conjunctivae normal. Pupils: Pupils are equal, round, and reactive to light. Cardiovascular: Rate and Rhythm: Normal rate and regular rhythm. Heart sounds: Normal heart sounds. Pulmonary: Effort: Pulmonary effort is normal. No tachypnea, accessory muscle usage or respiratory distress. Breath sounds: Normal breath sounds. No stridor. No wheezing, rhonchi or rales. Abdominal: Palpations: Abdomen is soft. Tenderness: There is no abdominal tenderness. There is no guarding or rebound. Musculoskeletal: Cervical back: Normal range of motion and neck supple. No rigidity or tenderness. Lymphadenopathy: Cervical: No cervical adenopathy. Skin: General: Skin is warm and dry. Neurological: Mental Status: She is alert and oriented to person, place, and time. ASSESSMENT/PLAN: 1. Viral illness - ICD9: 079.99, ICD10: B34.9 - COVID WITH FLUA+B, ROUTINE COVID-19 test ordered. Results pending. Alternative diagnosis discussed. Patient was educated on supportive therapies. Patient will follow up with primary care provider as needed. Patient was instructed to immediately proceed to emergency room for any new, worsening, or symptoms lasting longer thananticipated. The patient's clinical presentation is otherwise unremarkable at this time. Based on exam and clinical finding, the patient is stable for discharge. Plan of care was discussed with patient. Patient verbalizes understanding and agrees to plan of care. This note was generated using Pivto software. It may contain errors in wording, punctuation, or spelling. Vipul East APRN.[place] documented in this encounterPromedica [facility]06-29-2022 Instructions* Patient Instructions* Indira Marie APRN.CNP - 08/10/2021 1:40 PM EDT Oral Contraceptives: The Pill Beginning the Pill Pills come in either a 21 day pack or a 28 day pack. With the 21 day pack you will take one pill for 21 days then no pill for 7 days, during which time you will have what is known as withdrawal bleeding. The 28 day pack allows you to take a pill every day of the cycle with no interruptions. The first 21 pills are the pills with the active ingredients and the last 7 are the nonmedical pills (placebo) or they may contain iron. There will be bleeding during the week you are taking the nonmedical pills. The advantage to the 28 day pack is that you don t have to keep track of when you stopped the pill. There are a group of 28 day pills that contain 24 active pills and only 4 placebo pills. Theseare formulated to give you a it business process architect period. Unless otherwise instructed, you should start your pills the Sunday following your first day of bleeding with your next period (if your period starts on a Sunday, you should start pills the same day) Read your information packet that comes with the pills. Pill Benefits The pill is the most popular method of reversible control being used today. Millions of womenrely on oral contraceptives as their control method. It is important to have an examination by your physician to determine if the pill is safe for you. There are several advantages associated with the pill: it is 97-98% effective when used correctly; may improve acne; periods are more regularand less painful; there is less iron deficiency anemia in pill users. halfway use is associated with a decreased incidence of ovarian and uterine cancer. There is also no evidence that the pill increases the incidence of any cancer. How Oral Contraceptives Work Oral contraceptives come in two varieties. One is the combination pill which contains both estrogenand progesterone. Combination pills are considered 98-99% effective in preventing . This pill comes in either monophasic, which delivers the same amount of estrogen and progesterone throughout the cycle; and triphasic, which try tries to mimic the normal hormone cycle by changing the levels of the hormones in the pills during the month. There is no real advantage to taking the one over the other. The other type of pill only contains progesterone. It is best used for women who can t take estrogen. This type of pill is slightly less effective than the combination pill in preventing preg faisal. It is VERY important to take the progesterone only pill at the same time every day. Oral contraceptives prevent ovulation (release of an egg from the ovary) by suppressing the pituitary gland s action. The pill does NOT prevent sexually transmitted disease. Obtaining a Prescription It is important to see your doctor before starting oral contraceptives so that you can have a full medical history taken and a physical examination given. Certain medical conditions may make the pillinappropriate for you, therefore it is very important to be honest and as complete as possible withthe information you share with your doctor. The types of predisposing factors which would make the pill a poor choice of control would include: History of blood clots Stroke Serious liver disease or impaired liver function Unexplained vaginal bleeding or Cancer of the reproductive system Active gall bladder disease Hypertension Possible Side Effects It can take up to three months for your body to become adjusted to the pill. The more common side effects experienced at this time are: breakthrough spotting or bleeding, which is bleeding at any other time other than when you should be having a period; nausea or vomiting; breast tenderness; and mild fluid retention. There is no design architect weight gain with the use of the pill. Breakthrough bleeding is the most common complaint of new pill users. There is no way to predict who will have it and there is no way of preventing it. Breakthrough bleeding usually subsides on its own with no further treatment after the first three months of taking the pill. If these symptoms continue to occur after the first three months you should check with your physician to see if there is any physical cause andpossibly change to another control pill. Problems: 1. Missed 1 pill: Take 2 pills the next day. 2. Missed 2 pills: Take 2 pills the next day and 2 pills the following day. Also use another form of control (condoms) along with the pill for the rest of the month. 3. Missed 3 or more pills: You have two choices. You can take two pills each day until you are on schedule, plus use an additional form of control along with the pill for the rest of the month.Or you can stop the pill and start a completely new pack of pills the next Sunday. You must use another form of control with the pill for at least the first two weeks of the new pack. 4. You re ill and you have been vomiting or have diarrhea: You must use another form of control with the pill since the pill may not be fully absorbed during your illness. Continue to use the added control until the end of the cycle. 5. Desire to become : Stop using the pill for one month before trying to become . 6. Taking other medications: The control pill is less effective when you take the antibiotic Rifampin, epilepsy (seizure) drugs such as phenytoin, carbamazepine, phenobarbital, topiramate and some medications for HIV. Let your doctor know if you start taking any of these medications while on the pill. Symptoms to Notify Your Doctor with Immediately: 1. Pain in your chest or legs 2. Continuous blurred vision 3. Severe headaches 4. Slurred speech 5. Tingling or weakness on one side of your body 6. Shortness of breath 7. Swelling of one leg Refills of Control Pills You need to see a doctor every year for a refill of your prescription. This is necessary in order that your health can be monitored closely while you are taking control pills. If your prescription should before your next scheduled appointment you can usually get a one month extension from your doctors office if you call during regular business hours about one week before you need to start the new package of pills. This allows the physician to refer to your chart for necessary health information. documented in this encounterPromedica [facility]06-29-2022 History of Present illness Narrative* Indira Marie APRN.CNP - 08/10/2021 1:00 PM EDT Meredith is a 31 year old who presents for an annual gynecologic exam with complaints, migraine 2 days before period starts. She states that the migraine will go away about day 2 of flow, she isalso having lots of cramping Menses: cycles every 21-24 days and 4 days of flow. 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 [employer] History Comments: Sexual Activity: Yes; Male Contraception: Condom PAST MEDICAL HISTORY Diagnosis Date Anxiety ASCUS Pap 2017 neg HPV Migraines Preeclampsia complicating hypertension started two days after delivery was on low dose lisinopril for 3 weeks PAST SURGICAL HISTORY Procedure Laterality Date EXTRACTION, ERUPTED TOOTH OR EXPOSED ROOT (ELEVATION AND/OR FORCEPS REMOVAL) 2009 SKIN LESION pre-cancerous FAMILY HISTORY Problem Relation Age of Onset No Known Problems Mother No Known Problems Father other (gluten intolerance) Sister Breast Cancer Maternal Grandmother Diabetes Maternal Grandmother Hypertension Maternal Grandfather Stroke Maternal Grandfather Cancer Maternal Grandfather Skin Ca Dementia Maternal Grandfather Heart Paternal Grandmother Pacemaker other (uterine cancer) Paternal Grandmother Arthritis Paternal Grandfather SOCIAL HISTORY Social History Tobacco Use Smoking status: Former Smoker Packs/day: 0.50 Years: 10.00 Pack years: 5.00 Types: Cigarettes Quit date: 11/26/2018 Years since quittin.7 Smokeless tobacco: Never Used Vaping Use Vaping Use: Never used Substance Use Topics Alcohol use: Yes Comment: social Drug use: No REVIEW OF SYSTEMS Abdomen: No abdominal pain, nausea, vomiting, diarrhea, or constipation. No bloating, early satiety, indigestion, or increased flatulence. Bladder: No dysuria, gross hematuria, urinary frequency, urinary urgency, or incontinence. Breast: No breast lumps, nipple d/c, overlying skin changes, redness or skin retraction. Allergies and current medication updated:Yes EXAM: LMP 03/12/2021 GENERAL: pleasant, female in no apparent distress HEENT: Normocephalic, atraumatic, mucus membranes moist and no lesions NECK: Supple, full range of motion, no adenopathy and thyroid normal DERMATOLOGY: Normal, without lesions, non-icteric and non-hirsute BREAST: soft, non-tender, no dominant mass, normal nipple-areolar complex, no lymphadenopathy, no nipple discharge and left breast larger than the right- baby only likes to nurse of the left side. CHEST: Normal inspiratory effort ABDOMEN: soft, non-tender and no masses PELVIC: external genitalia normal, normal Bartholin's glands, urethra, [place]'s glands, no vulvar lesions, no cervical lesions, good vaginal support, physiologic discharge present, normal appearing perineal body and perianal region BIMANUAL: uterus normal size, shape and consistency, no adnexal masses, non- tender and no cervical motion tenderness RECTOVAGINAL: deferred. NEURO: alert and oriented x3,exam grossly non-focal EXTREMITIES: normal ASSESSMENT/PLAN: 1) Health maintenance: Pap done with HPV. Mammogram starting age 40. Nutrition, exercise and routine health maintenance exams reviewed. Calcium/Vitamin D supplementation information provided. 2) Contraception: combined hormonal contraceptives. Contraceptive options reviewed and information provided. 3) STD screening: Declined STD check. 4) Follow up one year or sooner as needed Indira Marie APRN.[place] documented in this encounterPromedica [facility]05-11-2020 History of Past illness Narrative* Problem Noted Date Resolved Date Abnormal glucose complicating 06/23/19 20 09/16/2019 Overview: 06/25/19-3hr GTT normal. Mariangel Sage APRN.CNM Nausea and vomiting in 01/16/2019 09/16/2019 Overview: 01/16/2019Patient was seen at [facility] for complaints of nausea and occasional vomiting in 01/05/2019. Denies vomiting now. Dietary considerations discussed . Vitamin B6 recommended. Advised patient to call/come in if she is unable to keep any food or fluids down in a 24-hour period. TKRN Patient request for diagnostic testing 9 09/16/2019 Overview: 01/16/2019Desires nuchal ultrasound. TKRN documented as of this encounter (statuses as of 05/11/2021) [facility]2020 History of Past illness Narrative* Problem Noted Date Resolved Date Abnormal glucose complicating 06/23/19 20 09/16/2019 Overview: 06/25/19-3hr GTT normal. Mariangel Sage APRN.CNM Nausea and vomiting in 01/16/2019 09/16/2019 Overview: 01/16/2019Patient was seen at [facility] for complaints of nausea and occasional vomiting in 01/05/2019. Denies vomiting now. Dietary considerations discussed . Vitamin B6 recommended. Advised patient to call/come in if she is unable to keep any food or fluids down in a 24-hour period. TKRN Patient request for diagnostic testing 9 09/16/2019 Overview: 01/16/2019Desires nuchal ultrasound. TKRN documented as of this encounter (statuses as of 08/10/2021) [facility] History of Past illness Narrative* Problem Noted Date Resolved Date Abnormal glucose complicating 06/23/19 20 09/16/2019 Overview: 06/25/19-3hr GTT normal. Mariangel Sage APRN.JADENM Nausea and vomiting in 01/16/2019 09/16/2019 Overview: 01/16/2019Patient was seen at [facility] for complaints of nausea and occasional vomiting in 01/05/2019. Denies vomiting now. Dietary considerations discussed . Vitamin B6 recommended. Advised patient to call/come in if she is unable to keep any food or fluids down in a 24-hour period. TKRN Patient request for diagnostic testing 9 09/16/2019 Overview: 01/16/2019Desires nuchal ultrasound. TKRN documented as of this encounter (statuses as of 10/20/2021) [facility] History of Past illness Narrative* Problem Noted Date Resolved Date Abnormal glucose complicating 06/23/19 20 09/16/2019 Overview: 06/25/19-3hr GTT normal. Mariangel Sage APRN.JADENM Nausea and vomiting in 01/16/2019 09/16/2019 Overview: 01/16/2019Patient was seen at [facility] for complaints of nausea and occasional vomiting in 01/05/2019. Denies vomiting now. Dietary considerations discussed . Vitamin B6 recommended. Advised patient to call/come in if she is unable to keep any food or fluids down in a 24-hour period. TKRN Patient request for diagnostic testing 9 09/16/2019 Overview: 01/16/2019Desires nuchal ultrasound. TKRN documented as of this encounter (statuses as of 11/23/2021) [facility] History of Past illness Narrative* Problem Noted Date Resolved Date Abnormal glucose complicating 06/23/19 20 09/16/2019 Overview: 06/25/19-3hr GTT normal. Mariangel Sage APRN.JADENM Nausea and vomiting in 01/16/2019 09/16/2019 Overview: 01/16/2019Patient was seen at [facility] for complaints of nausea and occasional vomiting in 01/05/2019. Denies vomiting now. Dietary considerations discussed . Vitamin B6 recommended. Advised patient to call/come in if she is unable to keep any food or fluids down in a 24-hour period. TKRN Patient request for diagnostic testing 9 09/16/2019 Overview: 01/16/2019Desires nuchal ultrasound. TKRN documented as of this encounter (statuses as of 11/24/2021) [facility] History of Past illness Narrative* Problem Noted Date Resolved Date Abnormal glucose complicating 06/23/1909/16/2019 Overview: 06/25/19-3hr GTT normal. Mariangel Sage APRN.CNM Nausea and vomiting in 01/16/2019 09/16/2019 Overview: 01/16/2019Patient was seen at [facility] for complaints of nausea and occasional vomiting in 01/05/2019. Denies vomiting now. Dietary considerations discussed . Vitamin B6 recommended. Advised patient to call/come in if she is unable to keep any food or fluids down in a 24-hour period. TKRN Patient request for diagnostic testing 9 09/16/2019 Overview: 01/16/2019Desires nuchal ultrasound. TKRN documented as of this encounter (statuses as of 02/14/2022) [facility] History of Past illness Narrative* Problem Noted Date Resolved Date Abnormal glucose complicating 06/23/19 20 09/16/2019 Overview: 06/25/19-3hr GTT normal. Mariangel Sage APRN.CNM Nausea and vomiting in 01/16/2019 09/16/2019 Overview: 01/16/2019Patient was seen at [facility] for complaints of nausea and occasional vomiting in 01/05/2019. Denies vomiting now. Dietary considerations discussed . Vitamin B6 recommended. Advised patient to call/come in if she is unable to keep any food or fluids down in a 24-hour period. TKRN Patient request for diagnostic testing 9 09/16/2019 Overview: 01/16/2019Desires nuchal ultrasound. TKRN documented as of this encounter (statuses as of 04/17/2022) [facility] History of Past illness Narrative* Problem Noted Date Resolved Date Abnormal glucose complicating 06/23/19 20 09/16/2019 Overview: 06/25/19-3hr GTT normal. Mariangel Sage APRN.CNM Nausea and vomiting in 01/16/2019 09/16/2019 Overview: 01/16/2019Patient was seen at [facility] for complaints of nausea and occasional vomiting in 01/05/2019. Denies vomiting now. Dietary considerations discussed . Vitamin B6 recommended. Advised patient to call/come in if she is unable to keep any food or fluids down in a 24-hour period. TKRN Patient request for diagnostic testing 9 09/16/2019 Overview: 01/16/2019Desires nuchal ultrasound. TKRN documented as of this encounter (statuses as of 05/11/2022) [facility] History of Past illness Narrative* Problem Noted Date Resolved Date Abnormal glucose complicating 06/23/19 20 09/16/2019 Overview: 06/25/19-3hr GTT normal. Mariangel Sage APRN.CNM Nausea and vomiting in 01/16/2019 09/16/2019 Overview: 01/16/2019Patient was seen at [facility] for complaints of nausea and occasional vomiting in 01/05/2019. Denies vomiting now. Dietary considerations discussed . Vitamin B6 recommended. Advised patient to call/come in if she is unable to keep any food or fluids down in a 24-hour period. TKRN Patient request for diagnostic testing 09/16/2019 Overview: 01/16/2019Desires nuchal ultrasound. TKRN documented as of this encounter (statuses as of 06/16/2022) [facility] History of Past illness Narrative* Problem Noted Date Resolved Date Abnormal glucose complicating 06/23/1909/16/2019 Overview: 06/25/19-3hr GTT normal. Mariangel Sage APRN.CNM Nausea and vomiting in 01/16/2019 09/16/2019 Overview: 01/16/2019Patient was seen at [facility] for complaints of nausea and occasional vomiting in 01/05/2019. Denies vomiting now. Dietary considerations discussed . Vitamin B6 recommended. Advised patient to call/come in if she is unable to keep any food or fluids down in a 24-hour period. TKRN Patient request for diagnostic testing 09/16/2019 Overview: 01/16/2019Desires nuchal ultrasound. TKRN documented as of this encounter (statuses as of 06/21/2022) [facility] History of Past illness Narrative* Problem Noted Date Resolved Date Abnormal glucose complicating 06/23/1909/16/2019 Overview: 06/25/19-3hr GTT normal. Mariangel Sage APRN.CNM Nausea and vomiting in 01/16/2019 09/16/2019 Overview: 01/16/2019Patient was seen at [facility] for complaints of nausea and occasional vomiting in 01/05/2019. Denies vomiting now. Dietary considerations discussed . Vitamin B6 recommended. Advised patient to call/come in if she is unable to keep any food or fluids down in a 24-hour period. TKRN Patient request for diagnostic testing 9 09/16/2019 Overview: 01/16/2019Desires nuchal ultrasound. TKRN documented as of this encounter (statuses as of 06/23/2022) [facility] History of Past illness Narrative* Problem Noted Date Resolved Date Abnormal glucose complicating 06/23/19 20 09/16/2019 Overview: 06/25/19-3hr GTT normal. Mariangel Sage APRN.CNM documented as of this encounter (statuses as of 08/07/2022) [facility] History of Past illness Narrative* Problem Noted Date Resolved Date Abnormal glucose complicating 06/23/1909/16/2019 Overview: 06/25/19-3hr GTT normal. Mariangel Sage APRN.CNM documented as of this encounter (statuses as of 08/14/2022) [facility] History of Past illness Narrative* Problem Noted Date Diagnosed Date Resolved Date Abnormal glucose complicating 06/23/2019 09/16/2019 Overview: 06/25/19-3hr GTT normal. Mariangel Sage APRN.CNM documented as of this encounter (statuses as of 08/29/2022) [facility] History of Past illness Narrative* Problem Noted Date Diagnosed Date Resolved Date Abnormal glucose complicating 06/23/2019 09/16/2019 Overview: 06/25/19-3hr GTT normal. Mariangel Sage APRN.CNM documented as of this encounter (statuses as of 09/01/2022) [facility] History of Past illness Narrative* Problem Noted Date Diagnosed Date Resolved Date Abnormal glucose complicating 06/23/2019 09/16/2019 Overview: 06/25/19-3hr GTT normal. Mariangel Sage APRN.CNM documented as of this encounter (statuses as of 09/08/2022) [facility] History of Past illness Narrative* Problem Noted Date Diagnosed Date Resolved Date Abnormal glucose complicating 06/23/2019 09/16/2019 Overview: 20-3hr GTT normal. Mariangel Sage APRN.CNM documented as of this encounter (statuses as of 10/02/2022) [facility] History of Past illness Narrative* Problem Noted Date Diagnosed Date Resolved Date Abnormal glucose complicating 06/23/2019 09/16/2019 Overview: 20-3hr GTT normal. Mariangel Sage APRN.CNM documented as of this encounter (statuses as of 10/09/2022) [facility] History of Past illness Narrative* Problem Noted Date Diagnosed Date Resolved Date Abnormal glucose complicating 06/23/2019 09/16/2019 Overview: 20-3hr GTT normal. Mariangel Sage APRN.CNM documented as of this encounter (statuses as of 10/20/2022) [facility] History of Past illness Narrative* Problem Noted Date Diagnosed Date Resolved Date Abnormal glucose complicating 06/23/2019 09/16/2019 Overview: 20-3hr GTT normal. Mariangel Sage APRN.CNM documented as of this encounter (statuses as of 11/12/2022) [facility] History of Past illness Narrative* Problem Noted Date Diagnosed Date Resolved Date Abnormal glucose complicating 06/23/2019 09/16/2019 Overview: 20-3hr GTT normal. Mariangel Sage APRN.CNM documented as of this encounter (statuses as of 11/18/2022) [facility] History of Past illness Narrative* Problem Noted Date Diagnosed Date Resolved Date Abnormal glucose complicating 06/23/2019 09/16/2019 Overview: /20-3hr GTT normal. Mariangel Sage APRN.CNM documented as of this encounter (statuses as of 11/29/2022) [facility] History of Past illness Narrative* Problem Noted Date Diagnosed Date Resolved Date Abnormal glucose complicating 06/23/2019 09/16/2019 Overview: /20-3hr GTT normal. Mariangel Sage APRN.CNM documented as of this encounter (statuses as of 12/12/2022) [facility] History of Past illness Narrative* Problem Noted Date Diagnosed Date Resolved Date Abnormal glucose complicating 06/23/2019 09/16/2019 Overview: /20-3hr GTT normal. Mariangel Sage APRN.CNM documented as of this encounter (statuses as of 12/12/2022) [facility] History of Past illness Narrative* Problem Noted Date Diagnosed Date Resolved Date Abnormal glucose complicating 06/23/2019 09/16/2019 Overview: /20-3hr GTT normal. Mariangel Sage APRN.CNM documented as of this encounter (statuses as of 12/21/2022) [facility] History of Past illness Narrative* Problem Noted Date Diagnosed Date Resolved Date Abnormal glucose complicating 06/23/2019 09/16/2019 Overview: /20-3hr GTT normal. Mariangel Sage APRN.CNM documented as of this encounter (statuses as of 01/09/2023) [facility] History of Past illness Narrative* Problem Noted Date Diagnosed Date Resolved Date Abnormal glucose complicating 06/23/2019 09/16/2019 Overview: 06/25/19-3hr GTT normal. Mariangel Sage APRN.CNM documented as of this encounter (statuses as of 01/12/2023) [facility] History of Past illness Narrative* Problem Noted Date Diagnosed Date Resolved Date Abnormal glucose complicating 06/23/2019 09/16/2019 Overview: 06/25/19-3hr GTT normal. Mariangel Sage APRN.CNM documented as of this encounter (statuses as of 01/25/2023) [facility] note* Diagnosis Ovarian cyst, complex Other and unspecified ovarian cyst [facility] [place] [facility] Diagnosis Encounter for gynecological examination (general) (routine) without abnormal findings- Primary Screening for cervical cancer Screening for malignant neoplasm of the cervix Encounter for screening for human papillomavirus (HPV) Special screening examination for human papillomavirus (HPV) Encounter for initial prescription of contraceptive pills General counseling for prescription of oral contraceptives documented [facility] [place] [facility] Diagnosis Viral illness- Primary Unspecified viral infection, in conditions classified elsewhere and of unspecified site [facility] [place] [facility] Diagnosis Pelvic pain- Primary Lower abdominal pain Abdominal pain, other specified site [facility] [place] [facility] Diagnosis JIN (generalized anxiety disorder) Generalized anxiety disorder [facility] [place] [facility] Diagnosis Well adult exam- Primary Routine general medical examination at a health care facility JIN (generalized anxiety disorder) Generalized anxiety disorder Vitamin D deficiency Unspecified vitamin D deficiency Weight gain Abnormal weight gain Screening for depression [facility] [place] [facility] Diagnosis Vitamin D deficiency Unspecified vitamin D deficiency [facility] [place] [facility] Diagnosis History of pre-eclampsia in prior , currently - Primary with other poor obstetric history History of strep sore throat Personal history of other infectious and parasitic disease History of anxiety Personal history of other mental disorder Nausea and vomiting during Patient request for diagnostic testing Other specified examination [facility] [place] [facility] Diagnosis Pelvic pain in - Primary Other specified complication of , unspecified as to episode of care [facility] Diagnosis SOB (shortness of breath)- Primary Shortness of breath 10 weeks gestation of state, incidental [facility] [place] [facility] Diagnosis Encounter for supervision of normal first in second trimester- Primary Supervision of normal first 12 weeks gestation of state, incidental JIN (generalized anxiety disorder) Generalized anxiety disorder [facility] Diagnosis Encounter for (NT) nuchal translucency scan- Primary Other specified screening Encounter for supervision of normal first in second trimester Supervision of normal first 13 weeks gestation of state, incidental [facility] Diagnosis Sore throat- Primary Acute pharyngitis [facility] Diagnosis 22 weeks gestation of - Primary state, incidental Encounter for supervision of other normal in first trimester Diastasis recti Diastasis of muscle [facility] Diagnosis Pyelectasis of fetus on ultrasound- Primary Abnormal findings on screening Encounter for supervision of other normal in first trimester [facility] Diagnosis JIN (generalized anxiety disorder) Generalized anxiety disorder [facility] Diagnosis Supervision of high risk in second trimester- Primary Unspecified high-risk Pyelectasis of fetus on ultrasound Abnormal findings on screening 26 weeks gestation of state, incidental Need for influenza vaccination Need for prophylactic vaccination and inoculation against influenza [facility] [place] [facility] Diagnosis 28 weeks gestation of - Primary state, incidental Supervision of high risk in second trimester Unspecified high-risk Need for vaccination Need for prophylactic vaccination and inoculation against unspecified single disease [facility] [place] [facility] Diagnosis 36 weeks gestation of - Primary state, incidental Supervision of high risk in third trimester Unspecified high-risk JIN (generalized anxiety disorder) Generalized anxiety disorder Excessive growth affecting management of in third trimester, single or unspecified fetus Polyhydramnios in third trimester complication, single or unspecified fetus documented in this encounter [facility] for referral (narrative)* Diagnostic Procedure Only (Routine) - Closed Specialty Diagnoses / Procedures Referred By Contac t Referred To Contact US IMAGING Diagnoses Ovarian cyst, complex Procedures US FEMALE PELVIS TRANSVAG US TRANSVAGINAL Indira Marie APRN.PUZZLE ASSEMBLER [address] [place] [address] Us Imaging Referral ID Status Reason Start Date Expiration Date V isits Requested Visits Authorized [id number] Closed Auto-Generate d Referral 05/26/2021 05/07/2022 1 1 [facility] for referral (narrative)* Diagnostic Procedure Only (Routine) - Pending Review Specialty Diagnoses / Procedures Referred By Contac t Referred To Contact US IMAGING Diagnoses Pelvic pain Lower abdominal pain Procedures US FEMALE PELVIS TRANSVAG US TRANSVAGINAL Barb Taylor APRN.PUZZLE ASSEMBLER [address] [place] [address] Us Imaging Referral ID Status Reason Start Date Expiration Date Visits Requested Visits Authorized [id number] Pending Review Auto-Generat ed Referral 03/10/2023 1 1 [facility] for referral (narrative)* Diagnostic Procedure Only (Routine) - Authorized Specialty Diagnoses / Procedures Referred By Contac t Referred To Contact [facility] Diagnoses Encounter for supervision of normal first in second trimester 12 weeks gestation of Procedures NUCHAL TRANSLUCENCY WHI US NUCHAL TRANSLUCENCY 1ST GESTATION Alana Dougherty APRN.CNM [address] [place] [address] [facility] [address] [place] [address] Referral ID Status Reason Start Date Expiration Date Visits Requested Visits Authorized [id number] Authorized Auto-Generat ed Referral 10/02/2022 10/02/2023 1 1 [facility] for referral (narrative)* Diagnostic Procedure Only (Routine) - Pending Review Specialty Diagnoses / Procedures Referred By Contac t Referred To Contact [facility] Diagnoses Pyelectasis of fetus on ultrasound Encounter for supervision of other normal in first trimester Procedures OBSTETRIC ULTRASOUND WHI US PREG UTERUS AFTER 1ST TRIMEST GESTATION Hilton Winters MD [address] [place] [address] [facility] [address] [place] [address] Referral ID Status Reason Start Date Expiration Date Visits Requested Visits Authorized [id number] Pending Review Auto-Generat ed Referral 3 12/11/2023 1 1 [facility] for visit Narrative* Diagnostic Procedure Only (Routine) - Closed Specialty Diagnoses / Procedures Referred By [employer] trivedi Referred To Contact US IMAGING Diagnoses Ovarian cyst, complex Procedures US FEMALE PELVIS TRANSVAG US TRANSVAGINAL Indira Marie APRN.CNP [address] [place] [address] Us Imaging Referral ID Status Reason Start Date Expiration Date V isits Requested Visits Authorized [id number] Closed Auto-Generate d Referral 05/26/2021 05/07/2022 1 1 [facility] Summary Purpose Family History No Family History Records FoundNo Family History Records FoundNo Family History Records FoundNo Family History Records Found Advance Directives No Advanced Directives Records FoundDocuments on File Type Date Recorded 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 Advance Directive(s) 03/31/2021 8:18 AM Advance Directive(s) 12/24/2019 10:54 AM Advance Directive(s) 01/05/2019 5:39 PM Advance Directive(s) 01/05/2019 9:38 PM Advance Directive(s) 12/14/2017 11:44 PM Documents on File Type Date Recorded 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 Advance Directive(s) 03/31/2021 8:18 AM Advance Directive(s) 12/24/2019 10:54 AM Advance Directive(s) 01/05/2019 5:39 PM Advance Directive(s) 01/05/2019 9:38 PM Advance Directive(s) 12/14/2017 11:44 PM Health Concerns Infection Onset Date Last Indicated Resolved Time COVID-19 Rule-Out 11/23/2021 11/23/2021 Infection Onset Date Last Indicated Resolved Time COVID-19 Rule-Out 11/23/2021 11/23/2021 11/24/2021 3:19 AM EDT Problem Noted Date Diagnosed Date [facility] Education - [facility]ON 09/04/2022 Education - [place] 09/04/2022 Problem Noted Date Diagnosed Date [facility] - [facility] 09/04/2022 Education - [place] 09/04/2022 Problem Noted Date Diagnosed Date [facility] - [facility] 09/04/2022 Education - [place] 09/04/2022 Problem Noted Date Diagnosed Date [facility] - [facility] 09/04/2022 Education - [place] 09/04/2022 Problem Noted Date Diagnosed Date [facility] - [facility] 09/04/2022 Education - [place] 09/04/2022 Problem Noted Date Diagnosed Date [facility] - [facility] 09/04/2022 Education - [place] 09/04/2022 Problem Noted Date Diagnosed Date [facility] - [facility] 09/04/2022 Education - [place] 09/04/2022 Problem Noted Date Diagnosed Date [facility] - [facility] 09/04/2022 Education - [place] 09/04/2022 Problem Noted Date Diagnosed Date [facility] Education - [facility] 09/04/2022 Education - [place] 09/04/2022 Problem Noted Date Diagnosed Date [facility] - [facility] 09/04/2022 Education - [place] 09/04/2022 Problem Noted Date Diagnosed Date [facility] - [facility] 09/04/2022 Education - [place] 09/04/2022 Reason for Referral Specialty Diagnoses / Procedures Referred By Ascencion trivedi Referred To Contact [facility] Diagnoses 22 weeks gestation of Encounter for supervision of other normal in first trimester Diastasis recti Procedures CONSULT TO PHYSICAL THERAPY PHYSICAL THERAPY EVALUATION HIGH COMPLEX 45 MINS Vanessa Banuelos MD [address] [facility] [place] [address] [facility] [address] [place], [place] [address], [place] [address] Referral ID Status Reason Start Date Expiration Date Visits Requested Visits Authorized [id number] Pending Review Auto-Generat ed Referral 3 12/11/2023 1 1 Additional Source Comments INFORMATION SOURCE (unrecogn ized section and content) DATE CREATED AUTHOR AUTHOR'S ORGANJUAN ATION 08/30/2022 [facility] DATE CREATED AUTHOR AUTHOR'S ORGANIZ ATION 12/29/2022 [facility] DATE CREATED AUTHOR AUTHOR'S ORGANIZ ATION 03/18/2023 [facility] Source Comments (unrecognize d section and content) In the event this informatio n is protected by the Federal Confidentiality of Alcohol and Drug Abuse Patient Records regulations: The Federal rules restrict any use of the information to criminally investigate or prosecute any alcohol or drug abuse patient.[facility] the event this information is protected by the Federal Confidentiality of Alcohol and Drug Abuse Patient Records regulations: The Federal rules restrict any use of the information to criminally investigate or prosecute any alcohol or drug abuse patient.[facility] HospitalIn the event this information is protected by the Federal Confidentiality of Alcohol and Drug Abuse Patient Records regulations: The Federal rules restrict any use of the information to criminally investigate or prosecute any alcohol or drug abuse patient.[facility] HospitalIn the event this information is protected by the Federal Confidentiality of Alcohol and Drug Abuse Patient Records regulations: The Federal rules restrict any use of the information to criminally investigate or prosecute any alcohol or drug abuse patient.[facility] HospitalIn the event this information is protected by the Federal Confidentiality of Alcohol and Drug Abuse Patient Records regulations: The Federal rules restrict any use of the information to criminally investigate or prosecute any alcohol or drug abuse patient.[facility] HospitalIn the event this information is protected by the Federal Confidentiality of Alcohol and Drug Abuse Patient Records regulations: The Federal rules restrict any use of the information to criminally investigate or prosecute any alcohol or drug abuse patient.[facility] HospitalIn the event this information is protected by the Federal Confidentiality of Alcohol and Drug Abuse Patient Records regulations: The Federal rules restrict any use of the information to criminally investigate or prosecute any alcohol or drug abuse patient.[facility] HospitalIn the event this information is protected by the Federal Confidentiality of Alcohol and Drug Abuse Patient Records regulations: The Federal rules restrict any use of the information to criminally investigate or prosecute any alcohol or drug abuse patient.[facility] HospitalIn the event this information is protected by the Federal Confidentiality of Alcohol and Drug Abuse Patient Records regulations: The Federal rules restrict any use of the information to criminally investigate or prosecute any alcohol or drug abuse patient.[facility] HospitalIn the event this information is protected by the Federal Confidentiality of Alcohol and Drug Abuse Patient Records regulations: The Federal rules restrict any use of the information to criminally investigate or prosecute any alcohol or drug abuse patient.[facility] HospitalIn the event this information is protected by the Federal Confidentiality of Alcohol and Drug Abuse Patient Records regulations: The Federal rules restrict any use of the information to criminally investigate or prosecute any alcohol or drug abuse patient.[facility] HospitalIn the event this information is protected by the Federal Confidentiality of Alcohol and Drug Abuse Patient Records regulations: The Federal rules restrict any use of the information to criminally investigate or prosecute any alcohol or drug abuse patient.[facility] HospitalIn the event this information is protected by the Federal Confidentiality of Alcohol and Drug Abuse Patient Records regulations: The Federal rules restrict any use of the information to criminally investigate or prosecute any alcohol or drug abuse patient.[facility] HospitalIn the event this information is protected by the Federal Confidentiality of Alcohol and Drug Abuse Patient Records regulations: The Federal rules restrict any use of the information to criminally investigate or prosecute any alcohol or drug abuse patient.[facility] HospitalIn the event this information is protected by the Federal Confidentiality of Alcohol and Drug Abuse Patient Records regulations: The Federal rules restrict any use of the information to criminally investigate or prosecute any alcohol or drug abuse patient.[facility] HospitalIn the event this information is protected by the Federal Confidentiality of Alcohol and Drug Abuse Patient Records regulations: The Federal rules restrict any use of the information to criminally investigate or prosecute any alcohol or drug abuse patient.[facility] HospitalIn the event this information is protected by the Federal Confidentiality of Alcohol and Drug Abuse Patient Records regulations: The Federal rules restrict any use of the information to criminally investigate or prosecute any alcohol or drug abuse patient.[facility] HospitalIn the event this information is protected by the Federal Confidentiality of Alcohol and Drug Abuse Patient Records regulations: The Federal rules restrict any use of the information to criminally investigate or prosecute any alcohol or drug abuse patient.[facility] HospitalIn the event this information is protected by the Federal Confidentiality of Alcohol and Drug Abuse Patient Records regulations: The Federal rules restrict any use of the information to criminally investigate or prosecute any alcohol or drug abuse patient.[facility] HospitalIn the event this information is protected by the Federal Confidentiality of Alcohol and Drug Abuse Patient Records regulations: The Federal rules restrict any use of the information to criminally investigate or prosecute any alcohol or drug abuse patient.[facility] HospitalIn the event this information is protected by the Federal Confidentiality of Alcohol and Drug Abuse Patient Records regulations: The Federal rules restrict any use of the information to criminally investigate or prosecute any alcohol or drug abuse patient.[facility] HospitalIn the event this information is protected by the Federal Confidentiality of Alcohol and Drug Abuse Patient Records regulations: The Federal rules restrict any use of the information to criminally investigate or prosecute any alcohol or drug abuse patient.[facility] HospitalIn the event this information is protected by the Federal Confidentiality of Alcohol and Drug Abuse Patient Records regulations: The Federal rules restrict any use of the information to criminally investigate or prosecute any alcohol or drug abuse patient.[facility] HospitalIn the event this information is protected by the Federal Confidentiality of Alcohol and Drug Abuse Patient Records regulations: The Federal rules restrict any use of the information to criminally investigate or prosecute any alcohol or drug abuse patient.[facility] HospitalIn the event this information is protected by the Federal Confidentiality of Alcohol and Drug Abuse Patient Records regulations: The Federal rules restrict any use of the information to criminally investigate or prosecute any alcohol or drug abuse patient.[facility] HospitalIn the event this information is protected by the Federal Confidentiality of Alcohol and Drug Abuse Patient Records regulations: The Federal rules restrict any use of the information to criminally investigate or prosecute any alcohol or drug abuse patient.[facility] HospitalIn the event this information is protected by the Federal Confidentiality of Alcohol and Drug Abuse Patient Records regulations: The Federal rules restrict any use of the information to criminally investigate or prosecute any alcohol or drug abuse patient.[facility] HospitalIn the event this information is protected by the Federal Confidentiality of Alcohol and Drug Abuse Patient Records regulations: The Federal rules restrict any use of the information to criminally investigate or prosecute any alcohol or drug abuse patient.[facility] HospitalIn the event this information is protected by the Federal Confidentiality of Alcohol and Drug Abuse Patient Records regulations: The Federal rules restrict any use of the information to criminally investigate or prosecute any alcohol or drug abuse patient.[facility] Care Teams (unrecognized sec tion and content) Bilingual Operator Relationship Specialty Start Date End Date Mari Ochoa APRN.PUZZLE ASSEMBLER [address] [place] [address] PCP - General Family Practice 04/05/21 Bilingual Operator Relationship Specialty Start Date End Date Mari Ochoa BEAUTY THERAPIST.PUZZLE ASSEMBLER [address] [place] [address] PCP - General Family Practice 04/05/21 Bilingual Operator Relationship Specialty Start Date End Date Mari Ochoa, BEAUTY THERAPIST.PUZZLE ASSEMBLER [address] [place] [address] PCP - General Family Medicine 04/05/21 Bilingual Operator Relationship Specialty Start Date End Date Mari Ochoa, BEAUTY THERAPIST.PUZZLE ASSEMBLER [address] [place] [address] PCP - General Family Medicine 04/05/21 Bilingual Operator Relationship Specialty Start Date End Date Mari Ochoa, BEAUTY THERAPIST.PUZZLE ASSEMBLER [address] [place] [address] PCP - General Family Medicine 04/05/21 Bilingual Operator Relationship Specialty Start Date End Date Mari Ochoa, BEAUTY THERAPIST.PUZZLE ASSEMBLER [address] [place] [address] PCP - General Family Medicine 04/05/21 Bilingual Operator Relationship Specialty Start Date End Date Mari Ochoa, BEAUTY THERAPIST.PUZZLE ASSEMBLER [address] [place] [address] PCP - General Family Medicine 04/05/21 Bilingual Operator Relationship Specialty Start Date End Date Mari Ochoa, BEAUTY THERAPIST.PUZZLE ASSEMBLER [address] [place] [address] PCP - General Family Medicine 04/05/21 Bilingual Operator Relationship Specialty Start Date End Date Mari Ochoa, BEAUTY THERAPIST.PUZZLE ASSEMBLER [address] [place] [address] PCP - General Family Medicine 04/05/21 Bilingual Operator Relationship Specialty Start Date End Date Mari Ochoa, BEAUTY THERAPIST.PUZZLE ASSEMBLER [address] [place] [address] PCP - General Family Medicine 04/05/21 Bilingual Operator Relationship Specialty Start Date End Date Mari Ochoa, BEAUTY THERAPIST.PUZZLE ASSEMBLER [address] [place] [address] PCP - General Family Medicine 04/05/21 Bilingual Operator Relationship Specialty Start Date End Date Mari Ochoa, BEAUTY THERAPIST.PUZZLE ASSEMBLER [address] [place] [address] PCP - General Family Medicine 04/05/21 Bilingual Operator Relationship Specialty Start Date End Date Mari Ochoa, BEAUTY THERAPIST.PUZZLE ASSEMBLER [address] [place] [address] PCP - General Family Medicine 04/05/21 Bilingual Operator Relationship Specialty Start Date End Date Mari Ochoa, BEAUTY THERAPIST.PUZZLE ASSEMBLER [address] [place] [address] PCP - General Family Medicine 04/05/21 Bilingual Operator Relationship Specialty Start Date End Date Mari Ochoa, BEAUTY THERAPIST.PUZZLE ASSEMBLER [address] [place] [address] PCP - General Family Medicine 04/05/21 Bilingual Operator Relationship Specialty Start Date End Date Mari Ochoa, BEAUTY THERAPIST.PUZZLE ASSEMBLER [address] [place] [address] PCP - General Family Medicine 04/05/21 Bilingual Operator Relationship Specialty Start Date End Date Mari Ochoa, BEAUTY THERAPIST.PUZZLE ASSEMBLER [address] [place] [address] PCP - General Family Medicine 04/05/21 Bilingual Operator Relationship Specialty Start Date End Date Mari Ochoa, BEAUTY THERAPIST.PUZZLE ASSEMBLER [address] [facility] [place] [place] [id number] PCP - General Family Medicine 04/05/21 Bilingual Operator Relationship Specialty Start Date End Date Mari Ochoa, BEAUTY THERAPIST.PUZZLE ASSEMBLER [address], [place] [id number] PCP - General Family Medicine 04/05/21 Bilingual Operator Relationship Specialty Start Date End Date Mari Ochoa, BEAUTY THERAPIST.PUZZLE ASSEMBLER [address] [facility] [place] [place] [id number] PCP - General Family Medicine 04/05/21 Reason for Visit (unrecogniz ed section and content) Reason Comments Fever KIM, chills, fatigue x 3 days Reason Comments Patient Question Reason Comments Refill Request Reason Comments Wellness Reason Comments Appointment Reason Comments Care Reason Comments Early OB pelvic pain Reason Comments Results Reason Comments 1 week f/u SOB Reason Onset Date Comments Care 10/02/2022 Reason Comments US Specialty Diagnoses / Procedures Referred By [facility] t Referred To Contact [facility] Diagnoses Encounter for supervision of normal first in second trimester 12 weeks gestation of Procedures NUCHAL TRANSLUCENCY WHI US NUCHAL TRANSLUCENCY 1ST GESTATION Alana Dougherty APRN.[facility] [address] [place] [address] [facility] [address] [place] [id number] Referral ID Status Reason Start Date Expiration Date V isits Requested Visits Authorized [id number] Closed Auto-Generate d Referral 10/02/2022 10/02/2023 1 1 Reason Comments OB Covid + Reason Comments Sore Throat ST x 1 day Reason Comments Movement Reason Onset Date Comments Care 12/11/2022 Reason Onset Date Comments Care 01/08/2023 Immunizations 01/08/2023 Flu vaccination Reason Comments Abdominal Pain Reason Onset Date Comments Care 01/19/2023 Reason Onset Date Comments Care 03/16/2023 FOR RECORDS PERTAINING TO PATIENTS WHO ARE OR HAVE BEEN ENROLLED IN A CHEMICAL DEPENDENCY/SUBSTANCEABUSE PROGRAM, SOME INFORMATION MAY BE OMITTED. This clinical summary was aggregated from multiple sources. Caution should be exercised in using it in the provision of clinical care. This summary normalizes information from multiple sources, and as a consequence, information in this document may materially change the coding, format and clinical context of patient data. In addition, data may be omitted in some cases. CLINICAL DECISIONS SHOULD BE BASED ON THE PRIMARY CLINICAL RECORDS. [facility]. provides no warranty or guarantee of the accuracy or completeness of information in this document.
[2023-03-21] MEDS: Lactated Ringers 1,000 ML 50 ML IV (20:12)
[2023-03-21] MEDS: Oxytocin 15 Units/NS 250ml 15 UNITS/250 ML IV.SOLN 2 UNITS IV (20:12)
[2023-03-22] VITALS (42 sets, daily range): BP systolic 101–155; BP diastolic 53–90; PULSE 70–108; RESP 16; TEMP 36.1–37.1; O2SAT 93–99
[2023-03-22] MEDS: LACTATED RINGERS 500 ML 999 ML IV (03:30)
[2023-03-22] MEDS: fentaNYL-bupivacaine (epidural) 100 ML BAG EPIDURAL ×2 (04:33→09:04)
[2023-03-22] MEDS: Lactated Ringers 1,000 ML 200 ML IV (05:18)
[2023-03-22] MEDS: Acetaminophen/Butalbital/Caffe 1 Tablet PO (05:18)
[2023-03-22 11:06] LABS: Syphilis Antibodies Non-reactive
--- NOTE | 2023-03-22 13:22 | PCM.OPRPT ---
Problems Associated Problem List Diagnoses (1) Vaginal delivery: (2) Vaginal laceration: Report of Operation Date of Procedure: 03/22/23 Pre-Operative Diagnosis: 37 week gestation, pre eclampsia without severe features Post-Operative Diagnosis: As above Surgery/Procedure Performed:: Repair of first degree vaginal laceration Description of Surgical Findings:: VFI in OP position. Normal appearing placenta with 3 VC Surgeon: Kailey Banuelos Type of Anesthesia: Epidural Special Medications: None Specimen's removed: Placenta Drains: Clark Estimated Blood Loss (mL): 150 Fluids Replaced: N/A Description of Procedure: Complete and pushing. Head of infant delivered in occiput posterior position. Anterior shoulder, posterior shoulder, and body of infant were delivered without any traction, force, or delay. A vigorous viable female infant was placed on maternal abdomen. The cord was clamped and cut after a 60 sec delay. The placenta delivered with fundal massage and was noted to be normal-appearing and intact with three-vessel cord. Uterus was explored x 1. Fundus was firm and bleeding hemostatic. A first-degree vaginal laceration was repaired with 3-0 Vicryl in usual sterile fashion. A vaginal sweep was performed. Sharp and sponge counts were correct. Grafts/Implants Used: None Complications None Admit VTE Documentation VTE Present on Admission: No
[2023-03-22] MEDS: Oxytocin 15 Units/NS 250ml 15 UNITS/250 ML IV.SOLN 83 UNITS IV (13:45)
[2023-03-22] MEDS: Ibuprofen 600 MG Tablet PO (15:01)
[2023-03-22] MEDS: 0.9% Saline Lock 10 ML Syringe IV (16:22)
[2023-03-22] MEDS: Escitalopram Oxalate 20 MG Tablet PO (20:55)
[2023-03-22] MEDS: Acetaminophen 500 MG Tablet 1000 MG PO (23:14)
[2023-03-23] MEDS: Ibuprofen 600 MG Tablet PO (00:29)
[2023-03-23 04:17] VITALS: BP 106/63; PULSE 73; RESP 16; TEMP 36.4; O2SAT 99
[2023-03-23 04:18] VITALS: BP 106/63; PULSE 75; O2SAT 98
[2023-03-23 09:30] VITALS: BP 127/73; PULSE 70; PULSE 79; PULSE 83; RESP 16; TEMP 36.4; O2SAT 99
--- NOTE | 2023-03-23 10:05 | PCM.DC.SUM ---
Providers Date of Admission: 03/21/23 Primary Care Physician: Adriana Primary Care Phys Reason For Visit: VAGINAL DELIVERY Diagnosis Discharge Diagnosis (1) Vaginal delivery: Status: Acute Code(s): O80 - Encounter for full-term uncomplicated delivery (2) Vaginal laceration: Status: Acute Code(s): S31.41XA - Laceration without foreign body of vagina and vulva, initial encounter Medications at Discharge Home Medications acetaminophen 325 mg capsule (Tylenol) 650 mg PO Q4H PRN headache 03/21/23 docosahexaenoic acid 200 mg capsule ( DHA) mg PO 03/21/23 escitalopram oxalate 20 mg tablet (Lexapro) 20 mg PO DAILY anxiety 03/21/23 ferrous sulfate 325 mg (65 mg iron) tablet (iron) 325 mg PO QODAY 03/21/23 ibuprofen 600 mg tablet 600 mg PO Q6H PRN Pain 30 days #60 TABLETS 03/23/23 Hospital Course Operations None Summary of Care Provided Minutes Spent on Discharge: 21 Hospital Course: Patient was admitted for induction of labor on 03/21/2023 for preeclampsia. She had a mild persistent headache and elevated protein in her urine. Her blood pressures were stable. She had a Clark in Pit induction and had a vaginal delivery on 03/22/2023. She is doing well today. She may be discharged home if she continues to do well throughout the day. She did have preeclampsia after her last delivery. Will send home with home blood pressure monitoring. Patient states understanding of need to call or return for signs or symptoms of severe preeclampsia. She is comfortable with this plan. Weight / BMI Weight Weight: 77.564 kg Body Mass Index (BMI) 29.3 ABG / Lab / Microbiology Data 03/21/23 11:15 03/21/23 11:15 Laboratory: Laboratory Results - last 24 hr 03/21/23 11:15: Syphilis Total Ab Non-reactive, Blood Type A POSITIVE, Antibody Screen NEGATIVE D/C Instructions Discharge Diet: No restrictions May resume sexual activity in: 6 weeks Call your doctor if your incision/area has: Continuous Slow Oozing, Sudden Increased Bleeding, Foul Smelling Discharge and Swelling at the incision site Call your doctor if you observe: Fever of 101 or Higher and Inability to urinate Please Follow Up With: Nicolette Rubio MD When: Follow up with our office in 1-2 and 6 weeks or as needed. [phone] Meaningful Use Info Meaningful Use Diagnoses (Choose all that apply): None applicable Discharge Plan Admission Admit Date/Time: 03/21/23 14:00 Attending Provider: Kailey Banuelos Primary Care Provider: Care PhysicianAdriana Primary Discharge Orders/Prescriptions Prescriptions: New ibuprofen [ibuprofen] 600 MG tablet 600 mg PO Q6H PRN (Reason: Pain) 30 Days Qty: 60 1RF Continued ferrous sulfate [iron] 325 mg (65 mg iron) tablet 325 mg PO QODAY DHA 200 mg capsule PO acetaminophen [Tylenol] 325 mg capsule 650 mg PO Q4H PRN (Reason: headache) escitalopram oxalate [Lexapro] 20 mg tablet 20 mg PO DAILY Discontinued aspirin [Adult Low Dose Aspirin] .ROUTE Referrals / Follow Up: Care Physician,Adriana Primary [Primary Care Provider] - Disposition Disposition (needs filled in before D/C Order can be placed): Home, Self Care
--- NOTE | 2023-03-23 10:07 | PCM.PN.OB ---
Subjective Subjective Pain well controlled, average lochia Objective Data Objective Data Vital Signs: Vital Signs Temp Pulse Resp BP Pulse Ox O2 Del Method 97.6 F L 79 16 127/73 H 99 Room Air 03/23/23 09:30 03/23/23 09:30 03/23/23 09:30 03/23/23 09:30 03/23/23 09:30 03/23/23 09:30 Oxygen Delivery Method Room Air Weight: 77.564 kg Body Mass Index (BMI) 29.3 Intake & Output: Intake and Output for Last 24 Hours 03/21/23 03/22/23 03/23/23 23:59 23:59 23:59 Intake Total 7.70 / 7.70 2908.37 / 2908.37 Output Total 1600 / 1600 Balance 7.70 / 7.70 1308.37 / 1308.37 Lab / Micro Data 03/21/23 11:15 03/21/23 11:15 Labs: Laboratory Results - last 24 hr 03/21/23 11:15: Syphilis Total Ab Non-reactive, Blood Type A POSITIVE, Antibody Screen NEGATIVE Physical Exam Const alert and no apparent distress Narrative: Fundus firm, below umbilicus. Assessment & Plan (1) Vaginal laceration: PLAN: PPD#1 doign well BP stable. IF does well later today ok to d/c home w/ home BP monitoring and early f/u next week. IF BP trends up will keep overnight. She is comfortable w/ plan
--- NOTE | 2023-03-23 12:44 | CASEMGMT ---
Social Work Assessment Labor and Delivery Unit Patient Address:[address] [place], [place] [id number] Phone number: [phone] Date of Referral: 03/21/23 Time of Referral:? 1538 Referred By: Alana Dougherty Date of Intervention: ??03/23/23 Time of Intervention:? 1000 Reason for Referral:? anxiety and depression Sw completed chart review and acknowledges social work consult due to maternal mental health history positive for anxiety and depression. Sw presented to bedside and introduced self to mother of baby (MOB- Meredith) and father of baby (FOB- Wily). Sw explained reason for sw involvement and completed psychosocial assessment. History obtained from: medical records, MOB and FOB Household composition: Currently residing in the family home is JOE CASTREJON, their 3.5 year old son, Doug and now baby. Parents deny any issues or concerns with their housing. Patient's parent/guardian status:?Parents report that they have been together fror 12 years, they met through mutual friends. No issues or concerns at this time regarding domestic violence or intimate partner violence. ? Medical History: ?CASH is 2, para 1- now 2 following labor and delivery of . CASH received routine care during with [facility]. CASH started to experience symptoms of pre-eclampsia and presented to hospital to deliver baby on 03/22/23. CASH deliverd baby via vaginal delivery at 37 weeks gestation. Baby girl, named Itz Bonds, was born weighing 7lb 4oz and her apgars were 8 and 9 at one and five minutes of life respectfully. CASH states that she is breast feeding and this is going well. Baby will be followed by Dr. Camilo for pediatrics. Educational Status:? Both parents graduated high school, FOB obtained a college degree, MOB obtained some college education but no degree. No concerns reported with reading, learning or comprehension. Financial Status: Both parents are gainfully employed outside of the home. FOB manages a [employer]. 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 CASH is able to take 12 weeks off of work. Infant Supplies:?? Parents have obtained all necessary baby supplies, including: car seat, safe sleep space, clothes, diapers and wipes. Childcare/Caregiver(s):? MOB will be the primary caregiver to baby while she is on maternity leave, along with FOB. When both parents are working they have an in-home day care where their children will go. Transportation:?? No barriers. Programs/Agencies Involved: No financial assistance provided from any community agencies at this time. Parents deny linkage to mental health resources. Children Services/Legal Issues:??? No history of involvement. No issues or concerns warranting referral to be made at this time. Behavioral Health Issues: ??Mental Health History:?FORip denies mental health diagnoses. MOB states that she has been diagnosed with anxiety, depression and a panic disorder. MOB denies experiencing baby blues or symptoms following the of her son 3 years ago. ?? Substance Use History: Parents deny substance use. ?? Family History:?Paretns report that there is alcoholism on both sides of their families. MOB states that they do not allow family members who are under the influence of alcohol to be around their children, or drink around their children. Parents deny that these family members will ever be responsible for providing childcare for their children. ? Drug Screens: ??No drug screens observed in chart review. Family/Social Stressors:? Parents deny stressors or concerns at this time. Support Systems: Parents state that both sets of grandma's are supportive. Depression/Shaken Baby/Safe Sleeping:? Sw educated parents at length regarding signs and symptoms of baby blues and depression and anxiety. Sw provided literature for parents to review. MOB and FOB express understanding. Sw educated parents on shaken baby prevention and ABCs of safe sleep. Parents express understanding. ASSESSMENT:? MOB and baby admitted following labor and delivery. MOB is hopeful for a discharge today. MOB observed to provide appropriate and loving hands on care to . MOB aware of signs and symptoms to be on the lookout for during her period. FOB observed to be a good support to MOB and aware of how to encourage and support her during her period. Parents were welcoming, engaged in conversation and receptive to sw involvement and support. PLAN:? MOB and baby to be discharged when medically ready. ?No other services requested or indicated. Ra Dubois, ENERGY CONTROL OFFICER, INDUSTRIAL CONTROLS TECHNICIAN
[2023-03-23 13:31] VITALS: BP 121/57; PULSE 82; RESP 16; TEMP 36.6
== END 2023-03-23 17:05 | disposition home or self-care (01) | DRG 807 ==
LOC: WPOUT 14:04 → WP 14:04
PROVIDERS: Advanced Practice Midwife; Admitting Provider Obstetrics & Gynecology; Visit Provider Obstetrics & Gynecology
DX: O14.94 Unspecified pre-eclampsia, complicating childbirth (principal); Z37.0 Single live birth; O40.3XX0 Polyhydramnios, third trimester, not applicable or unspecified; O36.63X0 Maternal care for excessive fetal growth, third trimester, not applicable or unspecified; O70.0 First degree perineal laceration during delivery; Z79.899 Other long term (current) drug therapy; Z87.891 Personal history of nicotine dependence; Z3A.37 37 weeks gestation of pregnancy
CPT/HCPCS: 59025; 59050; 82565; 82570; 84156; 84450; 84460; 84550; 85027; 86780; 86850; 86900; 86901; 99221; J7120; A4216; G0378

== ENCOUNTER 2023-03-25 20:18 | Outpatient (CLI) | payer OTHER, SELFPAY ==
[2023-03-25] VITALS (8 sets, daily range): BP systolic 125–158; BP diastolic 76–92; PULSE 65–77; TEMP 36.9; O2SAT 97; BMI 27.4
--- OUTSIDE RECORDS SUMMARY | 2023-03-25 20:42 | XMS RPT_ITS | CCD ---
Author Name Unknown Address [address] [place] [address] Organization [facility] Care Team Providers Care Hazmat Cdl Driver Name Role Phone Queden OUTBOARD MOTOR INSPECTOR.[place]RI[place] Mari A Primary Care Provider PROVIDER, UNKNOWN Referring Unavailable QUEDEN, MARI A Primary Care Unavailable QUEDEN, MARI A Primary Care Unavailable QUINN ISLAS Attending Unavailable Queden OUTBOARD MOTOR INSPECTOR.[place]RI[place] Mari A Primary Care Provider QUEDEN, MARI [...] MARI A Primary Care Unavailable WISWELL, VANESSA Attending [...] sources) sulfaSALAzine; Translations: [SULFASALAZINE] Drug Allergy 09-06-2015 [facility] Work Phone: (20 sources) Sulfonamides (Antibiotic); Translations: [SULFA (SULFONAMIDE ANTIBIOTICS)] Drug Allergy 09-05-2016 [facility] Medications Current Medications Medication Drug Class(es) Dates [...] unspecified] Onset: 05-11-2022 Chronic Other complications of (4 sources) Anemia in mother complicating , childbirth AND/OR puerperium; Translations: [Anemia complicating , third trimester] Onset: 01-15-2023 01-15-2023 Chronic Other complications of (1 source) Anemia complicating , third trimester; Translations: [Anemia complicating , third trimester] Onset: 01-15-2023 Chronic Other complications of (1 source) Pain in female pelvis; Translations: [Other specified related conditions, unspecified trimester] Episodic Other complications of (6 sources) High risk ; Translations: [Supervision of [...] Polyhydramnios and other problems of amniotic cavity (4 sources) Polyhydramnios; Translations: [Polyhydramnios, third trimester, not [...] Documented Da te Episodic/Chronic Other complications of (20 sources) History of pre-eclampsia; Translations: [Supervision of [...] 77.29 kg Alana Plotzahida EM Work Phone: [facility] 03-16-2023 15:15-0500 Diastolic blood pressure 66 mm[Hg] Alana Dougherty OUTBOARD MOTOR INSPECTOR.CNM Work Phone: [facility] 03-16-2023 15:15-0500 Systolic blood pressure 110 mm[Hg] Alana Dougherty OUTBOARD MOTOR INSPECTOR.CNM Work Phone: [facility] 01-19-2023 16:17-0500 Body weight 77.11 kg Vanessa Banuelos MD Work Phone: [facility] 01-19-2023 16:17-0500 Diastolic blood pressure 64 mm[Hg] Vanessa Banuelos MD Work Phone: [facility] 01-19-2023 16:17-0500 Systolic blood pressure 100 mm[Hg] Vanessa Banuelos MD Work Phone: [facility] 01-08-2023 16:25-0500 Body weight 77.11 kg Hilton Winters MD Work Phone: [facility] 01-08-2023 16:25-0500 Diastolic blood pressure 60 mm[Hg] Hilton Winters MD Work Phone: [facility] 01-08-2023 16:25-0500 Systolic blood pressure 102 mm[Hg] Hilton Winters MD Work Phone: [facility] 12-11-2022 15:43-0400 Body weight 74.39 kg Vanessa Banuelos MD Work Phone: [facility] 12-11-2022 15:43-0400 Diastolic blood pressure 64 mm[Hg] Vanessa Banuelos MD Work Phone: [facility] 12-11-2022 15:43-0400 Systolic blood pressure 110 mm[Hg] Vanessa Banuelos MD Work Phone: [facility] 11-12-2022 08:57-0400 Body temperature 98.8 [degF] Cindy Goel APRN.NETWORK SYSTEMS OPERATOR Work Phone: [facility] 11-12-2022 08:57-0400 Body weight 72.39 kg Cindy Goel APRN.NETWORK SYSTEMS OPERATOR Work Phone: [facility] 11-12-2022 08:57-0400 Diastolic blood pressure 80 mm[Hg] Cindy Goel OUTBOARD MOTOR INSPECTOR.NETWORK SYSTEMS OPERATOR Work Phone: [facility] 11-12-2022 08:57-0400 Heart rate 91 /min Cindy Goel APRN.NETWORK SYSTEMS OPERATOR Work Phone: [facility] 11-12-2022 08:57-0400 Respiratory rate 18 /min Cindy Goel APRN.NETWORK SYSTEMS OPERATOR Work Phone: [facility] 11-12-2022 08:57-0400 SaO2% (BldA) [Mass fraction] 99 % Cindy Goel OUTBOARD MOTOR INSPECTOR.NETWORK SYSTEMS OPERATOR Work Phone: [facility] 11-12-2022 08:57-0400 Systolic blood pressure 118 mm[Hg] Cindy Goel OUTBOARD MOTOR INSPECTOR.NETWORK SYSTEMS OPERATOR Work Phone: [facility] 10-02-2022 10:56-0400 Body weight 71.94 kg Alana Gabrielzahida OUTBOARD MOTOR INSPECTOR.CNM Work Phone: [facility] 10-02-2022 10:56-0400 Diastolic blood pressure 72 mm[Hg] Alana Plotts OUTBOARD MOTOR INSPECTOR.CNM Work Phone: [facility] 10-02-2022 10:56-0400 Systolic blood pressure 110 mm[Hg] Alana Plotts OUTBOARD MOTOR INSPECTOR.CNM Work Phone: [facility] 09-08-2022 08:13-0400 Body height 161.3 cm Mari Queden OUTBOARD MOTOR INSPECTOR.NETWORK SYSTEMS OPERATOR Work Phone: [facility] 09-08-2022 08:13-0400 Body temperature 98.1 [degF] Mari Queden OUTBOARD MOTOR INSPECTOR.NETWORK SYSTEMS OPERATOR Work Phone: [facility] 09-08-2022 08:13-0400 Body weight 71.22 kg Mari Queden OUTBOARD MOTOR INSPECTOR.NETWORK SYSTEMS OPERATOR Work Phone: [facility] 09-08-2022 08:13-0400 Diastolic blood pressure 62 mm[Hg] Mari Queden OUTBOARD MOTOR INSPECTOR.NETWORK SYSTEMS OPERATOR Work Phone: [facility] 09-08-2022 08:13-0400 Heart rate 79 /min Mari Queden OUTBOARD MOTOR INSPECTOR.NETWORK SYSTEMS OPERATOR Work Phone: [facility] 09-08-2022 08:13-0400 Respiratory rate 17 /min Mari Queden OUTBOARD MOTOR INSPECTOR.NETWORK SYSTEMS OPERATOR Work Phone: [facility] 09-08-2022 08:13-0400 SaO2% (BldA) [Mass fraction] 98 % Mari Queden OUTBOARD MOTOR INSPECTOR.NETWORK SYSTEMS OPERATOR Work Phone: [facility] 09-08-2022 08:13-0400 Systolic blood pressure 116 mm[Hg] Mari Queden OUTBOARD MOTOR INSPECTOR.NETWORK SYSTEMS OPERATOR Work Phone: [facility] 05-11-2022 09:47-0400 Body height 161.3 cm Amri Queden OUTBOARD MOTOR INSPECTOR.NETWORK SYSTEMS OPERATOR Work Phone: [facility] 05-11-2022 09:47-0400 Body temperature 98.29 [degF] Mari Queden OUTBOARD MOTOR INSPECTOR.NETWORK SYSTEMS OPERATOR Work Phone: [facility] 05-11-2022 09:47-0400 Body weight 69.4 kg Mari Queden OUTBOARD MOTOR INSPECTOR.NETWORK SYSTEMS OPERATOR Work Phone: [facility] 05-11-2022 09:47-0400 Diastolic blood pressure 66 mm[Hg] Mari Queden OUTBOARD MOTOR INSPECTOR.NETWORK SYSTEMS OPERATOR Work Phone: [facility] 05-11-2022 09:47-0400 Heart rate 91 /min Mari Queden OUTBOARD MOTOR INSPECTOR.NETWORK SYSTEMS OPERATOR Work Phone: [facility] 05-11-2022 09:47-0400 Respiratory rate 18 /min Mari Queden OUTBOARD MOTOR INSPECTOR.NETWORK SYSTEMS OPERATOR Work Phone: [facility] 05-11-2022 09:47-0400 SaO2% (BldA) [Mass fraction] 98 % Mari Queden OUTBOARD MOTOR INSPECTOR.NETWORK SYSTEMS OPERATOR Work Phone: [facility] 05-11-2022 09:47-0400 Systolic blood pressure 104 mm[Hg] Mari Brunogrzegorz OUTBOARD MOTOR INSPECTOR.NETWORK SYSTEMS OPERATOR Work Phone: [facility] 02-08-2022 07:34-0500 Body height 161.3 cm Barb Ana M OUTBOARD MOTOR INSPECTOR.NETWORK SYSTEMS OPERATOR Work Phone: [facility] 02-08-2022 07:34-0500 Body temperature 97.59 [degF] Barb Ana M OUTBOARD MOTOR INSPECTOR.NETWORK SYSTEMS OPERATOR Work Phone: [facility] 02-08-2022 07:34-0500 Body weight 68.67 kg Barb Ana M OUTBOARD MOTOR INSPECTOR.NETWORK SYSTEMS OPERATOR Work Phone: [facility] 02-08-2022 07:34-0500 Diastolic blood pressure 60 mm[Hg] Barb Ana M OUTBOARD MOTOR INSPECTOR.NETWORK SYSTEMS OPERATOR Work Phone: [facility] 02-08-2022 07:34-0500 Heart rate 90 /min Barb Ana M OUTBOARD MOTOR INSPECTOR.NETWORK SYSTEMS OPERATOR Work Phone: [facility] 02-08-2022 07:34-0500 Respiratory rate 18 /min Barb Ana M OUTBOARD MOTOR INSPECTOR.NETWORK SYSTEMS OPERATOR Work Phone: [facility] 02-08-2022 07:34-0500 SaO2% (BldA) [Mass fraction] 98 % Barb Ana M OUTBOARD MOTOR INSPECTOR.NETWORK SYSTEMS OPERATOR Work Phone: [facility] 02-08-2022 07:34-0500 Systolic blood pressure 110 mm[Hg] Barb Ana M OUTBOARD MOTOR INSPECTOR.NETWORK SYSTEMS OPERATOR Work Phone: [facility] 11-23-2021 14:22-0400 Body temperature 99.19 [degF] Vipul Pendmervatbury OUTBOARD MOTOR INSPECTOR.NETWORK SYSTEMS OPERATOR Work Phone: [facility] 11-23-2021 14:22-0400 Body weight 68.4 kg Vipul [place] OUTBOARD MOTOR INSPECTOR.NETWORK SYSTEMS OPERATOR Work Phone: [facility] 11-23-2021 14:22-0400 Diastolic blood pressure 62 mm[Hg] Vipul Pendlebury OUTBOARD MOTOR INSPECTOR.NETWORK SYSTEMS OPERATOR Work Phone: [facility] 11-23-2021 14:22-0400 Heart rate 94 /min [facility] OUTBOARD MOTOR INSPECTOR.NETWORK SYSTEMS OPERATOR Work Phone: [facility] 11-23-2021 14:22-0400 Respiratory rate 21 /min [facility] OUTBOARD MOTOR INSPECTOR.NETWORK SYSTEMS OPERATOR Work Phone: [facility] 11-23-2021 14:22-0400 SaO2% (BldA) [Mass fraction] 99 % [facility] OUTBOARD MOTOR INSPECTOR.NETWORK SYSTEMS OPERATOR Work Phone: [facility] 11-23-2021 14:22-0400 Systolic blood pressure 104 mm[Hg] [facility] OUTBOARD MOTOR INSPECTOR.NETWORK SYSTEMS OPERATOR Work Phone: [facility] 08-10-2021 13:04-0400 Body height 161.5 cm Indira [place] OUTBOARD MOTOR INSPECTOR.NETWORK SYSTEMS OPERATOR Work Phone: [facility] 08-10-2021 13:04-0400 Body weight 68.31 kg Indira [place] OUTBOARD MOTOR INSPECTOR.NETWORK SYSTEMS OPERATOR Work Phone: [facility] 08-10-2021 13:04-0400 Diastolic blood pressure 58 mm[Hg] Indira Cynthia OUTBOARD MOTOR INSPECTOR.NETWORK SYSTEMS OPERATOR Work Phone: [facility] 08-10-2021 13:04-0400 Systolic blood pressure 102 mm[Hg] Indira [employer] [place] OUTBOARD MOTOR INSPECTOR.NETWORK SYSTEMS OPERATOR Work Phone: [facility] Encounters Encounter Date Encounter Type Care Provider Facility Start: 03-22-2023 ambulatory Vanessa Miranda Work Phone: OB/Gynecology Procedures Date Procedure Procedure Detail Performing Clinician Start: 03-16-2023 URINE OB DIP B/O Eliseo Dougherty OUTBOARD MOTOR INSPECTOR.JADENM Work Phone: Start: 01-19-2023 URINE OB DIP B/O Vanessa young MD Work Phone: Start: 01-08-2023 INFLUENZA VACCINE, A GE 6 MO - 64 YR, QUADRIVALENT (AFLURIA, FLULAVAL, FLUZONE) Hilton Winters MD Work Phone: Start: 01-08-2023 URINE OB DIP B/O Jaja Winters MD Work Phone: Start: 12-11-2022 URINE OB DIP B/O Vanessa young MD Work Phone: Start: 11-12-2022 STREP A MOLECULAR (POC) Becky Monge OUTBOARD MOTOR INSPECTOR.NETWORK SYSTEMS OPERATOR Work Phone: Start: 10-09-2022 Us nuchal translucency 1st gestation Alana Dougherty OUTBOARD MOTOR INSPECTOR.CNM Work Phone: Start: 10-02-2022 Antibody screen MARI OCHOA Plan of Treatment Date Care Activity Detail Author Start: 01-19-2033 Urine microalbumin profile DTa P,Tdap,Td Vaccine (11 - Td or Tdap) [facility] Start: 06-19-2029 Urine microalbumin profile [facility] Start: 08-10-2026 HPV TESTING HPV TESTING [facility] Start: 08-10-2026 PAP TESTING PAP TESTING [facility] Start: 08-10-2026 Screening for malign ant neoplasm of cervix [facility] Start: 07-02-2023 PAP TESTING PAP TESTING [facility] Start: 05-12-2023 COVID-19 VACCINE (4 - Booster for Pfizer series) COVID-19 VACCINE (4 - Booster for Pfizer series) [facility] Immunizations Immunization Date Immunization Notes Care Provider Fa cility 03-02-2023 respiratory syncytia l virus (RSV) vaccine, bivalent (ABRYSVO) Alana Dougherty OUTBOARD MOTOR INSPECTOR.CNM Work Phone: [facility] 01-19-2023 tetanus toxoid, redu silvestre diphtheria toxoid, and acellular pertussis vaccine, adsorbed Vanessa Banuelos MD Work Phone: [facility] 01-08-2023 influenza, injectabl e, quadrivalent, contains preservative Hilton Winters MD Work Phone: [facility] 06-01-2020 COVID-19 vaccine, ag e 12+ yr ([employer] - PURPLE TOP) [facility] Work Phone: 05-11-2020 COVID-19 vaccine, ag e 12+ yr ([employer] - PURPLE TOP) [facility] Work Phone: 01-16-2020 influenza virus vacc ine, unspecified formulation [facility] 12-22-2019 Seasonal, quadrivale nt, recombinant, injectable influenza vaccine, preservative free [facility] 06-20-2019 tetanus toxoid, redu silvestre diphtheria toxoid, and acellular pertussis vaccine, adsorbed [facility] 06-02-2019 tetanus toxoid, redu silvestre diphtheria toxoid, and acellular pertussis vaccine, adsorbed [facility] 10-14-2018 influenza, seasonal, injectable [facility] 08-05-2018 tetanus toxoid, redu silvestre diphtheria toxoid, and acellular pertussis vaccine, adsorbed [facility] 06-25-2008 hepatitis A vaccine, unspecified formulation [facility] 06-25-2008 hepatitis B vaccine, pediatric or pediatric/adolescent dosage [facility] 06-25-2008 meningococcal polysaccharide (groups A, C, Y and W-135) diphtheria toxoid conjugate vaccine (MCV4P) [facility] 06-25-2008 tetanus toxoid, redu silvestre diphtheria toxoid, and acellular pertussis vaccine, adsorbed [facility] 06-25-2008 hepatitis B vaccine, unspecified formulation Indira Marie APRN.CNP Work Phone: [facility] 09-24-2002 measles, mumps and rubella virus vaccine [facility] 03-09-1995 diphtheria, tetanus toxoids and acellular pertussis vaccine, unspecified formulation [facility] 03-09-1995 poliovirus vaccine, unspecified formulation [facility] 02-27-1992 diphtheria, tetanus toxoids and acellular pertussis vaccine, unspecified formulation [facility] 02-27-1992 poliovirus vaccine, unspecified formulation [facility] 08-22-1991 haemophilus influenz ae type b vaccine, conjugate unspecified formulation [facility] 08-22-1991 measles, mumps and rubella virus vaccine [facility] 1990 diphtheria, tetanus toxoids and pertussis vaccine [facility] 1990 haemophilus influenz ae type b vaccine, conjugate unspecified formulation [facility] 1990 diphtheria, tetanus toxoids and pertussis vaccine [facility] 1990 haemophilus influenz ae type b vaccine, conjugate unspecified formulation [facility] 1990 poliovirus vaccine, unspecified formulation [facility] 1990 diphtheria, tetanus toxoids and pertussis vaccine [facility] 1990 haemophilus influenz ae type b vaccine, conjugate unspecified formulation [facility] 1990 poliovirus vaccine, unspecified formulation [facility] Payers Date Payer Category Payer Unknown [id number] 2021 Unknown MMO MMO [employer] [id number] 2021-Present [phone] [address] [place] [address] PPO [id number] 2021 Unknown [id number] 2021 Unknown [id number] Social History Date Type Detail Facility Start: 02-27-2017 End: 11-23-2021 Tobacco smoking status NHIS Ex-smoker [facility] End: 11-26-2018 History of tobacco use Current smoker [facility] End: 11-26-2018 History of tobacco use Cigarette Smoker [facility] Start: 02-27-2017 End: 06-22-2022 Cigarettes smoked current (pack per day) - Reported 0.5 [facility] Start: 02-27-2017 End: 11-23-2021 Tobacco use and exposure Smokeless tobacco non-user [facility] Start: 04-18-2021 End: 06-21-2022 Alcohol intake Current drinker of alcohol (finding) [facility] Start: 09-18-2019 End: 09-30-2020 History SDOH Alcohol Frequency 2 [facility] Start: 09-18-2019 End: 09-30-2020 History SDOH Alcohol Std Drinks 1 [facility] Start: 01-05-2019 History SDOH Alcohol Comment social [facility] Start: 12-30-2018 History SDOH Social Connections Phone 4 [facility] Start: 12-30-2018 History SDOH Social Connections Living 3 [facility] Start: 12-30-2018 End: 09-18-2019 History SDOH Physical Activity DPW 5 [facility] Start: 12-30-2018 Education 15 [facility] Start: 1990 Sex Assigned At Not on file C [facility] Start: 04-30-2021 End: 11-23-2021 Exposure to SARS-CoV-2 (event) Not sure [facility] Start: 08-07-2022 End: 03-22-2023 Alcohol intake Ex-drinker (finding) [facility] Start: 07-20-2022 [facility] Start: 12-30-2018 End: 06-22-2022 Social connection and isolation panel [facility] Do you belong to any clubs or organizations such as religion groups, unions, fraternal or athletic groups, or school groups? No [facility] Are you now , , , , never or living with a partner? [facility] How often to you hav e a drink containing alcohol? Monthly or less [facility] Work Phone: How many standard dr inks containing alcohol do you have on a typical day? 1 or 2 [facility] Work Phone: How often do you hav e 6 or more drinks on 1 occasion? Never [facility] Work Phone: How hard is it for y ou to pay for the very basics like food, housing, medical care, and heating Not hard at all [facility] Do you feel stress - tense, restless, nervous, or anxious, or unable to sleep at night because your mind is troubled all the time - these days [OSQ] To some extent [facility] (I/We) worried wheth er (my/our) food would run out before (I/we) got money to buy more. Never true [facility] Goals Date Patient Goal Desired Activity /State Personal health goal Clinical Notes 06-23-2019 to 03-22-2023 Dary Nino RN - 03/22/2023 2:22 PM ESTTelephone Encounter - Dary Nino RN - 03/21/2023 10:06 AM ESTPrenatal Quick Notes - Alana DoughertyTRINAM - 03/16/2023 3:29 PM EST Note Date & Type Note Facility 03-22-2023 Note HNO ID: [id number] Author: DARY NINO RN Service: ? Author Type: Registered Nurse Type: Progress Notes Filed: 03/22/2023 14:24 Note Text: Patient delivered via by Dr. Banuelos on 03/22/23 at [facility]. See OB history. Dary Nino RN [facility] 03-22-2023 History of Presen t illness Narrative Patient delivered via by Dr. Banuelos on 03/22/23 at [facility]. See OB history. Dary Nino RN documented in this encounter [facility] 03-21-2023 Miscellaneous Notes [id number] Calling c/o headache, nausea and feeling off for 2 days. Headache occasionally improves some tylenol, but not always. Checked her BP and few times and each time was upper 130s/upper 70s, which is higher then normal for her. CP notified and advised to L&D. Patient and L&D notified. Dary Nino RN documented in this encounter [facility] 03-16-2023 Miscellaneous Notes Meredith Marcelino is a [...] Alana Dougherty APRN.CNM documented in this encounter [facility] 03-16-2023 Instructions Brandon Plummer Cma - 03/16/2023 3:15 PM EST SEQUENTIAL SCREENINGS The [facility] offers sequential screenings for women who are [...] It will require an appointment with our tattoo technician. This is not an ultrasound performed [...] the above symptoms, contact our office at [phone] and ask to speak with a nurse. After hours, you can call doctors registry at [phone] OR call [facility] at [phone] and ask to have the doctor elocution teacher paged. If you consider this an emergency, dial 9-2 or go to your nearest emergency department. NEED HELP? Are you dealing with a violent or abusive relationship? Are you a victim of rape or sexual assult? Call [facility] ([place]) 24 hour Crisis Hotline: 193.417.6038 or 128-412-0497. MANUAL Your Guide to a Healthy manual is now on-line. Visit [email or web address] to download your free copy documented in this encounter [facility] 02-20-2023 Note HNO ID: [id number] Author: MARIETTA GOEL MD Service: ? Author [...] None Interpretation: Reactive SIGNATURE: Marietta Goel MD [facility] 01-19-2023 Note HNO ID: [id number] Author: Aria Carrington MA Service: ? Author Type: Disability Specialist Type: Progress Notes Filed: 01/25/2023 10:23 AM [...] severely ill: Yes Patient denies history of Guillain-[place] Syndrome (a severe paralytic illness): Yes Tdap Adacel injection was given without incident. See immunizations for details of immunizations administered today. VIS sheet provided: Yes Provider Vanessa Banuelos DO was present in office at time of injection. Aria Carrington MA [facility] 01-19-2023 Miscellaneous Notes SW- Pt doing well. Still having bilateral low back pain and some pelvic discomfort. No vb, lof. No urinary symptoms. No discharge. Good FM. PE: Gen- NAD, well appearing, comfortable Abd- Soft, gravid, NT, S>D See flowsheet A/p 28 wk gestation - Tdap today - S>D and growth US scheduled - Discussed pain likely MSK and reviewed Tylenol PRN, resident care aid, massage therapy, pelvic floor PT, belly support belt - She is planning on completing 28 wk labs tomorrow - Rh positive - RTO 2 wks Vanessa Banuelos DO documented in this encounter [facility] 01-19-2023 History of Presen t illness Narrative [...] severely ill: Yes Patient denies history of Guillain-[place] Syndrome (a severe paralytic illness): Yes Tdap Adacel injection was given without incident. See immunizations for details of immunizations administered today. VIS sheet provided: Yes Provider Vanessa Banuelos DO was present in office at time of injection. Aria Carrington MA documented in this encounter [facility] 01-19-2023 Instructions Aria Carrington MA - 01/19/2023 4:14 PM EST SEQUENTIAL SCREENINGS The [facility] offers sequential screenings for women who are [...] It will require an appointment with our tattoo technician. This is not an ultrasound performed [...] the above symptoms, contact our office at [phone] and ask to speak with a nurse. After hours, you can call doctors registry at [phone] OR call [facility] at [phone] and ask to have the doctor elocution teacher paged. If you consider this an emergency, dial 0-1-4 or go to your nearest emergency department. NEED HELP? Are you dealing with a violent or abusive relationship? Are you a victim of rape or sexual assult? Call [facility] ([place]) 24 hour Crisis Hotline: 183.959.8210 or 319-545-0628. MANUAL Your Guide to a Healthy manual is now on-line. Visit [email or web address] [email or web address] to download your free copy documented in this encounter [facility] 01-12-2023 Miscellaneous Notes Patient called and appointment [...] Fabby Reeves RN documented in this encounter [facility] 01-08-2023 Miscellaneous Notes RR- VB No. LOF [...] pepcid for now declines lARC at delivery iHlton Winters M.D. documented in this encounter [facility] 01-08-2023 Vandana Aguilar Ma - 01/08/2023 4:26 PM EST SEQUENTIAL SCREENINGS The [facility] offers sequential screenings for women who are [...] It will require an appointment with our tattoo technician. This is not an ultrasound performed [...] the above symptoms, contact our office at [phone] and ask to speak with a nurse. After hours, you can call doctors registry at [phone] OR call [facility] at [phone] and ask to have the doctor elocution teacher paged. If you consider this an emergency, dial 6-1-3 or go to your nearest emergency department. NEED HELP? Are you dealing with a violent or abusive relationship? Are you a victim of rape or sexual assult? Call [facility] ([place]) 24 hour Crisis Hotline: 405.333.5990 or 985-944-7795. MANUAL Your Guide to a Healthy manual is now on-line. Visit [email or web address] [email or web address] to download your free copy documented in this encounter [facility] 12-20-2022 Miscellaneous Notes pharm requesting refills: Last office visit 09/08/22. Last refill . Requested Prescriptions Pending Prescriptions Disp Refills escitalopram oxalate (LEXAPRO) 20 mg tablet [Pharmacy Med Name: ESCITALOPRAM 20 MG TABLET] 90 tablet 1 Sig: take 1 tablet by mouth every day Please review and advise. Jessica Muñiz MA documented in this encounter [facility] 12-11-2022 Miscellaneous Notes SW- Pt doing well. [...] Vanessa Banuelos DO documented in this encounter [facility] 12-11-2022 Instructions Vanessa Banuelos MD - 12/11/2022 2:32 PM EDT mild pyelectasis SEQUENTIAL SCREENINGS The [facility] offers sequential screenings for women who are [...] It will require an appointment with our tattoo technician. This is not an ultrasound performed [...] the above symptoms, contact our office at [phone] and ask to speak with a nurse. After hours, you can call doctors registry at [phone] OR call [facility] at [phone] and ask to have the doctor elocution teacher paged. If you consider this an emergency, dial or go to your nearest emergency department. NEED HELP? Are you dealing with a violent or abusive relationship? Are you a victim of rape or sexual assult? Call [facility] ([place]) 24 hour Crisis Hotline: 574.713.5520 or 754-410-1317. MANUAL Your Guide to a Healthy manual is now on-line. Visit [email or web address] [email or web address] to download your free copy documented in this encounter [facility] 11-29-2022 Miscellaneous Notes Called patient. She wants to have appt tomorrow to come in to check FHT. She requests PM appointment. Patient transferred to surgery scheduler to input new insurance and schedule [...] movement flutters x 2 weeks. She is [id number] a few times an hour Today has not noted any movement even after drinking a sugary drink. Denies any bleeding or pain. Patient reassured that this can happen. I have advised her to call in if she doesn't feel movement in a few hours. Please call if further advice documented in this encounter [facility] 11-16-2022 Miscellaneous Notes Still unable to reach patient but he did see his results 11/15 at 9:03.Faye Guallpa LPN Attempted to call pt, voicemail is full. Will try again later. Fernanda Loo MA Please notify of negative throat culture Comfort measures as discussed at visit. Divine Chi APRN.NETWORK SYSTEMS OPERATOR documented in this encounter [facility] 11-12-2022 Note HNO ID: [id number] Author: Cindy Goel APRN.NETWORK SYSTEMS OPERATOR Service: ? Author Type: Nurse Practitioner Type: [...] Patient agreeable to treatment plan. Cindy Goel APRN.[facility] 11-12-2022 History of Presen t illness Narrative [...] Cindy Goel APRN.CNP documented in this encounter [facility] 10-20-2022 Miscellaneous Notes Pt notified and voiced [...] Susy Harper RN documented in this encounter [facility] 10-02-2022 Miscellaneous Notes Meredith Marcelino is a [...] Alana Dougherty APRN.CNM documented in this encounter [facility] 10-02-2022 Instructions Brandon Plummer Cma - 10/02/2022 10:51 AM EDT SEQUENTIAL SCREENINGS The [facility] offers sequential screenings for women who are [...] It will require an appointment with our tattoo technician. This is not an ultrasound performed [...] the above symptoms, contact our office at [phone] and ask to speak with a nurse. After hours, you can call doctors registry at [phone] OR call [facility] at [phone] and ask to have the doctor elocution teacher paged. If you consider this an emergency, dial 9-1-7 or go to your nearest emergency department. NEED HELP? Are you dealing with a violent or abusive relationship? Are you a victim of rape or sexual assult? Call [facility] ([place]) 24 hour Crisis Hotline: 656.199.1595 or 704-417-6038. MANUAL Your Guide to a Healthy manual is now on-line. Visit [email or web address] [email or web address] to download your free copy documented in this encounter [facility] 09-08-2022 Note HNO ID: [id number] Author: Mari Ochoa APRN.NETWORK SYSTEMS OPERATOR Service: ? Author Type: Nurse Practitioner Type: [...] history is provided by the patient. No director child was used. PAST MEDICAL HISTORY Diagnosis Date [...] - ICD9: 786. (more content not included)... [facility] 09-08-2022 History of Presen t illness Narrative [...] history is provided by the patient. No director child was used. PAST MEDICAL HISTORY Diagnosis Date [...] ICD10: Z3A.10 - Under the care of INTERFACE DEVELOPER New medication(s) prescribed today: None. Counseling completed in adopting health behaviors such as avoiding excessive alcohol use, avoid tobacco use, improve nutrition, and engage in physical activities. Copy of written care plan, clinical summary, treatment plan, new medications, goals, and self management requirements were given to patient. Mari Ochoa APRN.CNP documented in this encounter [facility] 09-04-2022 Note HNO ID: [id number] Author: Hilton Winters MD Service: ? Author Type: Physician Type: Progress Notes Filed: 09/04/2022 10:56 AM Note Text: INITIAL OB ASSESSMENT Electrician Yard offered: Patient declines. 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 [facility] 09-01-2022 Note HNO ID: [id number] Author: Aneta Sena CT Service: ? Author [...] AUSTYN Dawson September 01, 2022 4:13 PM [facility] 09-01-2022 Note HNO ID: [id number] Author: Mari Ochoa APRN.[place] Service: ? Author Type: Nurse Practitioner Type: Progress Notes Filed: 09/01/2022 5:45 PM Note Text: [place] [address] Visit Date: 09/01/2022 Patient Name: Meredith Marcelino Date of : 1990 Chief Complaint: ER Follow Up Meredith Marcelino is a 32 year old female here today for a follow up to a recent emergency room (ER) visit. Emergency Room Location: [facility] Date of Emergency Room Visit: 08/29/22 Reason for Emergency Room Visit: Pneumonia ED Visits AND Hospitalizations - Last 180 days 08/29/22 Hrics, Quinn Olguin MD, MEED Community acquired pneumonia [...] are moist. Pharynx: (more content not included)... [facility] 08-31-2022 Miscellaneous Notes The XR was ordered [...] Johnson MA ----- Message from Mari Ochoa APRN.NETWORK SYSTEMS OPERATOR sent at 08/31/2022 9:03 AM EDT ----- Please let patient know their results are WNL. Thank you. documented in this encounter [facility] 08-29-2022 Miscellaneous Notes Pt notified of below [...] Honey Muñoz LPN documented in this encounter [facility] 08-10-2022 Note HNO ID: [id number] Author: Vanessa Banuelos MD Service: ? Author Type: Physician Type: Progress Notes Filed: 08/10/2022 6:23 PM Note Text: Electrician Yard offered: Patient declines. Meredith Marcelino is a 32 year old female who presents for r/o ectopic. HPI: Cramping last week and RLQ pain today. The pain is sharp to dull. No vb. LMP certain. Cycles 22-24 days. OB History T1 L1 SAB0 IAB0 Ectopic0 Multiple0 Live Births1 Aquatic Director History LMP: 07/06/2022 (Exact Date), Age at Menarche: Age at First : Age at Menopause: Aquatic Director History Comments: Sexual Activity: Yes; Male Contraception: [...] Medical Decision Making Level: 2 - Straightforward [facility] 08-10-2022 Miscellaneous Notes See result note. Please leave phone note open for 08/10 and 08/12 HCG Quants. Reviewed bleeding precautions. Susy Harper RN Serial HCG ordered 5w0d Calling because she started with sudden onset of frequent RLQ sharp pain today. Rating 5/10 on the pain scale now. No bleeding or other complaints. NOB scheduled with RR 09/04/22. Please advise. Dary Nino RN documented in this encounter [facility] documented as of this encounter (statuses as of 03/17/2023) [facility] History of Past illness Narrative* Problem Noted Date Diagnosed Date Resolved Date History of strep sore throat 08/07/2022 02/02/2023 Overview: 3Patient was treated for strep throat on July 07. She took amoxicillin for 10 days. She states that her symptoms have resolved. TKRN Diastasis recti 10/23/2019 02/02/2023 Abnormal glucose complicating 06/23/2019 09/16/2019 Overview: 06/25/19-3hr GTT normal. Mariangel Sage APRN.CNM Nausea and vomiting during 01/16/2019 02/02/2023 Overview: 08/07/2022 Patient is complaining of nausea and occasional vomiting in . Dietary considerations discussed . Vitamin B6 recommended. Advised patient to call/come in if she is unable to keep any food or fluids down in a 24-hour period. TKRN Patient request for diagnostic testing 01/16/2019 02/02/2023 Overview: 08/07/2022atient desires aneuploidy screening. Contact information for [employer] given to patient to check on insurance coverage. Patient considering carrier screening testing. Contact information for [employer] labs given to patient to check on insurance coverage.Chery Schilling RN Severe dysmenorrhea 09/06/2015 02/03/20 23 documented as of this encounter (statuses as of 03/21/2023) [facility] History of Past illness Narrative* Problem Noted Date Diagnosed Date Resolved Date History of strep sore throat 08/07/2022 02/02/2023 Overview: 08/07/2022atient was treated for strep throat on July 07. She took amoxicillin for 10 days. She states that her symptoms have resolved. TKRN Diastasis recti 10/23/2019 02/02/2023 Abnormal glucose complicating 06/23/2019 09/16/2019 Overview: 06/25/19-3hr GTT normal. Mariangel Sage APRN.CNM Nausea and vomiting during 01/16/2019 02/02/2023 Overview: 08/07/2022 Patient is complaining of nausea and occasional vomiting in . Dietary considerations discussed . Vitamin B6 recommended. Advised patient to call/come in if she is unable to keep any food or fluids down in a 24-hour period. TKRN Patient request for diagnostic testing 01/16/2019 02/02/2023 Overview: 08/07/2022atient desires aneuploidy screening. Contact information for [employer] given to patient to check on insurance coverage. Patient considering carrier screening testing. Contact information for [employer] labs given to patient to check on insurance coverage.Chery Schilling RN Severe dysmenorrhea 09/06/2015 02/03/20 23 documented as of this encounter (statuses as of 03/22/2023) [facility] NoteHNO ID: [id number] Author: Chery Schilling RN Service: ? Author [...] Apgar1: None, Apgar5: None, Living: None, Comments: [facility] Miscellaneous Notes* Quick Notes - Chery Schilling [...] doing well on medication. She will call [place] to let her know that she is [...] insurance coverage.Chery Schilling RN [facility] History of Present illness Narrative* Chery Schilling [...] Living: None, Comments: None documented in [facility]23 NoteHNO ID: [id number] Author: Emmy Lilly PA-C Service: ? Author Type: Physician Receiving Supervisor Type: Progress Notes Filed: 07/07/2022 1:46 PM Note Text: This note was created using [employer]. Subjective Meredith Marcelino is a 32 year [...] worsen - STREP A MOLECULAR (POC) [facility]05-11-2023 NoteHNO ID: [id number] Author: Geovanny Lake MA Service: ? Author Type: Disability Specialist Type: Progress Notes Filed: 06/22/2022 3:32 PM Note Text: ED Follow Up: Patient discharged from [facility] ED on 06/23/22. 1. How are you feeling since your ED visit? Called pt [facility] for her to call the office back with any questions or concerns Have your symptoms improved or resolved? Called pt [facility] for her to call the office back with any questions or concerns 2. Were you prescribed any medications while in the ED or advised to stop any medication? Called pt [facility] for her to call the office back with any questions or concerns - If yes, were you able to fill your prescriptions? Called pt [facility] for her to call the office back with any questions or concerns -if stopped medication, what was the medication? Called pt [facility] for her to call the office back [...] you able to contact the office or elocution teacher provider prior to your ED visit? Called pt left VM for her to call the office back with any questions or concerns 5. Is there anything else I can do for you today? Called pt left for her to call the office back with any questions or concerns[facility] History of Present illness Narrative* Geovanny Lake MA - 06/22/2022 3:30 PM EDT ED Follow Up: Patient discharged from [facility] ED on 06/23/22. 1. How are you feeling since your ED visit? Called pt left VM for her to call the office back with any questions or concerns Have your symptoms improved or resolved? Called pt left VM for her to call the office back with anyquestions or concerns 2. Were you prescribed any medications while in the ED or advised to stop any medication? Called ptft for her to call the office back with any questions or concerns - If yes, were you able to fill your prescriptions? Called pt left VM for her to [...] you able to contact the office or elocution teacher provider prior to your ED visit? Called pt left VM for her to call the office back with any questions or concerns 5. Is there anything else I can do for you today? Called pt rohith for her to call the office backwith any questions or concerns [facility] NotePatient Outreach (AGINTMLW) MEREDITH MARCELINO ([id number]) 1990 F Date Time Provider Department 06/22/22 [place] AGINTMLW During your visit today, we recorded the following information about you: Geovanny Lake MA 06/22/2022 3:32 PM Signed ED Follow Up: Patient discharged from [facility] ED on 06/23/22. 1. How are you feeling since your ED visit? Called pt rohith for her to call the office back [...] you able to contact the office or elocution teacher provider prior to your ED visit? Called [...] 05/16/2022 Encounter Status:Closed by [place]NY [place] on 06/22/22[facility] 06-21-2022 Miscellaneous Notes* Telephone Encounter - Jessica Muñiz MA - 06/21/2022 1:13 PM EDT Pt. Lm on requesting appointment for migraines. Requesting apt. For this week. Please help schedule. Thanks. Jessica Muñiz MA [facility] Miscellaneous Notes* Telephone Encounter - Freda Johnson MA - 06/15/2022 3:31 PM EDT Pharmacy has a valid script Freda Johnson MA documented in [facility]2023 NoteHNO ID: [id number] Author: Mari Ochoa APRN.NETWORK SYSTEMS OPERATOR Service: ? Author Type: Nurse Practitioner Type: Progress Notes Filed: 05/11/2022 11:31 AM Note Text: [place] [address] Date of Evaluation: 05/11/2022 Patient Name: Meredith [...] COVID-19 original vaccine, age 12+ yr, monovalent ([employer] - PURPLE TOP) 05/11/2020 06/01/2020 02/07/2021 Haemophilus [...] neck pain. Skin: Negative (more content not included)...[facility] 05-11-2022 Instructions* Patient Instructions* Mari Ochoa APRN.NETWORK SYSTEMS OPERATOR - 05/11/2022 10:26 AM EDT [facility] Outpatient Lab Hours For your convenience, the outpatient laboratory is open during the following hours: Sunday- Sunday 7 a.m. - 4:30 p.m. Sunday: 8 a.m. - 11:45 a.m. The outpatient lab is closed on Sundays and holidays. GET HELP If you have symptoms of clinical depression, you can get help by doing one or more of the followin. Please talk with your doctor. 2. If you are already in treatment, make sure you contact and update your doctor or therapist. 3. Review additional options for care based on patient or provider preference: Central/Multiple Locations: [facility]: [address] [facility] - [phone] El[facility] Nobles: [address] Anjel [facility]dom[facility] - [phone] [facility] [address] [facility] - [phone] [facility]: [address] [facility] - [phone] [facility]: [address] [place] [address] - [phone] (Medicaid only) [facility]: Multiple Locations - [phone] [facility] Department of Psychiatry & Psychology at [phone] (select Option 1) or [phone] (select Option 1) Connections: Multiple Locations - [phone] (Medicaid only) Sher Reeves [facility] - Multiple Locations - [phone] (Medicaid only) [facility], [facility] Multiple Locations - [phone] [facility]ants: Multiple Locations - [phone] [facility]: Multiple Locations - [phone] [facility] Locations: [facility]: [address] [facility] - [phone] [facility]: [address] [place] - [phone] Danay Varghese PhD and Associates: [address] [place] - [phone] [facility] - [address] [place] - [phone] Duncan Riggins MD: [address] [facility] - [phone] [facility] [address], [place] - [phone] [facility]: [address], [place] - [phone] [facility] Counsel[facility], [address] [facility] - [phone] [place] Locations: Juju [place] MD [facility]: [address], [place] - [phone] Danay Varghese PhD [facility] Associates: [address] - [phone] [facility]: [address] [facility] - [phone] [facility] [address] [facility] - [phone] [facility], [address] [facility], [facility] - [phone] [facility], [address] [facility] - [phone] [facility]: [address] [facility] - [phone] [place] Locations: [facility] Psychological and Counseling Services of [facility] L [facility] -[phone] [facility] Services L Carl Odom, [facility] - [phone] [facility] Psychiatry: [address] [facility] [facility] - [phone] [facility]: [address] [facility] - [phone] [facility] - [address] [place] - [phone] [place] Locations: [facility] - Janak Herrmann MD Psychiatry, Sleep Medicine - [address] [facility] - [phone] or [phone] Aurora Sutton MD - [address] [facility] [phone] [facility]ants - SUJATA Lacey, DCSW - [address] - [phone] [facility] - [address] [facility] [phone] [facility] (NO Commercial Insurance accepted) - [address] [employer] [facility] [phone] [facility] - Vnice Edwards, [facility], [facility] - [address] [facility] - [phone] SUJATA Pham - [address] [phone] Cher Spencer, [facility] - [address] [phone] Ty Mcallister, PhD - [address] [phone] Sloane Housermiah, [facility] - [address] [phone] Geovanny Villa, [facility], [facility] (No Medicare, [place], [employer]) - [address] [address], [place] [phone] Alexandro Posada, [facility] - [address], [place] [phone] Lai Bueno, [facility] - [address] [phone] For additional resources and information please call or review the website: [email or web address]/ If you are feeling suicidal, please call [employer], , or the [employer] Suicide Hotline , Call 511, or go to your nearest emergency room documented in [facility] History of Present illness Narrative* Mari Ochoa APRN.CNP - 05/11/2022 10:02 AM EDT Images from the original note [place] [address] Date of Evaluation: 05/11/2022 Patient Name: Meredith [...] COVID-19 original vaccine, age 12+ yr, monovalent ([employer] - PURPLE TOP) 05/11/2020 06/01/2020 02/07/2021 Haemophilus [...] right TM Nose: Nose normal. Mouth/Throat: Lips: [place]. Mouth: Mucous membranes are moist. Pharynx: Oropharynx [...] virtual. Mari Ochoa APRN.[place] documented in this encounterK[facility]03-[facility]-2023 Miscellaneous Notes* Telephone Encounter - Freda Johnson [...] advise. Freda Johnson MA documented in this encounterK[facility]12-28-2022 NoteHNO ID: [id number] Author: Barb Taylor APRN.NETWORK SYSTEMS OPERATOR Service: ? Author Type: Nurse Practitioner Type: [...] alert. ASSESSMENT/PLAN: 1. Pelvic pain - ICD9: [id number], ICD10: R10.2 (primary diagnosis) Etiology unclear, exam with (more content not included)...[facility]12-28-2022 History of Present illness Narrative* Barb Taylor APRN.[facility] - 02/08/2022 7:40 AM EST This note was created using [employer]. 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 ASSESSMENT/PLAN: 1. Pelvic pain - ICD9: [id number], ICD10: R10.2 (primary diagnosis) Etiology unclear, exam with mild lower abd tenderness, no guarding or rebound. - Work up with Ultrasound transvaginal - [place] low residue diet - US FEMALE PELVIS TRANSVAG - UA as ordered - call if persists or worsens 2. Lower abdominal pain - ICD9: 789.09, ICD10: R10.30 Etiology unclear Differential Diagnosis includes IBS, IBD, Ovarian cyst, and Cystitis - Work up with Ultrasound transvaginal - US FEMALE PELVIS TRANSVAG Barb Taylor APRN.CNP [facility] Miscellaneous Notes* Telephone Encounter - Mari Ochoa [...] Pleaseadvise. Zeinab Trejo MA documented [facility] Instructions* Patient Instructions* Vipul East APRN.CNP - 11/23/2021 2:32 PM EDT How to [...] pedialyte or Gatorade, or flat sprite or sarah-shasta. Start slowly and increase as you are [...] or concerning to you. documented in [facility] History of Present illness Narrative* Vipul East [...] of care. This note was generated using [employer] software. It may contain errors in wording, punctuation, or spelling. Vipul East APRN.[place] documented in this encounterK[facility]22 Instructions* Patient Instructions* Indira Marie APRN.CNP - [...] pills. Theseare formulated to give you a porcelain finisher period. Unless otherwise instructed, you should start [...] less iron deficiency anemia in pill users. shelter use is associated with a decreased incidence [...] and mild fluid retention. There is no long term care administrator weight gain with the use of the [...] for necessary health information. documented in this encounterK[facility]22 History of Present illness Narrative* Indira Marie [...] L1 SAB0 IAB0 Ectopic0 Multiple0 Live Births1 Aquatic Director History LMP: 03/12/2021, Having periods Age at Menarche: Age at First : Age at Menopause: Aquatic Director History Comments: Sexual Activity: Yes; Male Contraception: [...] external genitalia normal, normal Bartholin's glands, urethra, Friant's glands, no vulvar lesions, no cervical lesions, [...] year or sooner as needed Indira Marie APRN.NETWORK SYSTEMS OPERATOR documented in this encounterK[facility]2020 History of Past illness Narrative* Problem Noted Date Resolved Date Abnormal glucose complicating 06/23/19 20 09/16/2019 Overview: 06/25/19-3hr GTT normal. Mariangel Sage APRN.CNM Nausea and vomiting in 01/16/2019 09/16/2019 Overview: 01/16/2019Patient was seen at [facility] for complaints of nausea and occasional vomiting in 01/05/2019. Denies vomiting now. Dietary considerations discussed . Vitamin B6 recommended. Advised patient to call/come in if she is unable to keep any food or fluids down in a 24-hour period. TKRN Patient request for diagnostic testing 9 09/16/2019 Overview: 01/16/2019Desires nuchal ultrasound. TKRN documented as of this encounter (statuses as of 05/11/2021) [facility] History of Past illness Narrative* Problem Noted Date Resolved Date Abnormal glucose complicating 06/23/19 20 09/16/2019 Overview: 06/25/19-3hr GTT normal. aMriangel Sage APRN.CNM Nausea and vomiting in 01/16/2019 09/16/2019 Overview: 01/16/2019Patient was seen at [facility] for complaints of nausea and occasional vomiting in 01/05/2019. Denies vomiting now. Dietary considerations discussed . Vitamin B6 recommended. Advised patient to call/come in if she is unable to keep any food or fluids down in a 24-hour period. TKRN Patient request for diagnostic testing 9 09/16/2019 Overview: 01/16/2019Desires nuchal ultrasound. TKRN documented as of this encounter (statuses as of 08/10/2021) [facility] of Past illness Narrative* Problem Noted Date Resolved Date Abnormal glucose complicating 06/23/19 20 09/16/2019 Overview: 06/25/19-3hr GTT normal. Mariangel Sage APRN.JADENM Nausea and vomiting in 01/16/2019 09/16/2019 Overview: 01/16/2019Patient was seen at [facility] for complaints of nausea and occasional vomiting in 01/05/2019. Denies vomiting now. Dietary considerations discussed . Vitamin B6 recommended. Advised patient to call/come in if she is unable to keep any food or fluids down in a 24-hour period. TKRN Patient request for diagnostic testing 9 09/16/2019 Overview: 01/16/2019Desires nuchal ultrasound. TKRN documented as of this encounter (statuses as of 10/20/2021) [facility] of [facility] illness Narrative* Problem Noted Date Resolved Date Abnormal glucose complicating 06/23/19 20 09/16/2019 Overview: 06/25/19-3hr GTT normal. Mariangel Sage APRN.CNM Nausea and vomiting in 01/16/2019 09/16/2019 Overview: 01/16/2019Patient was seen at [facility] for complaints of nausea and occasional vomiting in 01/05/2019. Denies vomiting now. Dietary considerations discussed . Vitamin B6 recommended. Advised patient to call/come in if she is unable to keep any food or fluids down in a 24-hour period. TKRN Patient request for diagnostic testing 9 09/16/2019 Overview: 01/16/2019Desires nuchal ultrasound. TKRN documented as of this encounter (statuses as of 11/23/2021) [facility] of [facility] illness Narrative* Problem Noted Date Resolved Date Abnormal glucose complicating 06/23/19 20 09/16/2019 Overview: 06/25/19-3hr GTT normal. Mariangel Sage APRN.CNM Nausea and vomiting in 01/16/2019 09/16/2019 Overview: 01/16/2019Patient was seen at [facility] for complaints of nausea and occasional vomiting in 01/05/2019. Denies vomiting now. Dietary considerations discussed . Vitamin B6 recommended. Advised patient to call/come in if she is unable to keep any food or fluids down in a 24-hour period. TKRN Patient request for diagnostic testing 9 09/16/2019 Overview: 01/16/2019Desires nuchal ultrasound. TKRN documented as of this encounter (statuses as of 11/24/2021) [facility] of [facility] illness Narrative* Problem Noted Date Resolved Date Abnormal glucose complicating 06/23/1909/16/2019 Overview: 06/25/19-3hr GTT normal. Mariangel Sage APRN.CNM Nausea and vomiting in 01/16/2019 09/16/2019 Overview: 01/16/2019Patient was seen at [facility] for complaints of nausea and occasional vomiting in 01/05/2019. Denies vomiting now. Dietary considerations discussed . Vitamin B6 recommended. Advised patient to call/come in if she is unable to keep any food or fluids down in a 24-hour period. TKRN Patient request for diagnostic testing 9 09/16/2019 Overview: 01/16/2019Desires nuchal ultrasound. TKRN documented as of this encounter (statuses as of 02/14/2022) [facility] Narrative* Problem Noted Date Resolved Date Abnormal glucose complicating 06/23/19 20 09/16/2019 Overview: 06/25/19-3hr GTT normal. Mariangel Sage APRN.CNM Nausea and vomiting in 01/16/2019 09/16/2019 Overview: 01/16/2019Patient was seen at [facility] for complaints of nausea and occasional vomiting in 01/05/2019. Denies vomiting now. Dietary considerations discussed . Vitamin B6 recommended. Advised patient to call/come in if she is unable to keep any food or fluids down in a 24-hour period. TKRN Patient request for diagnostic testing 9 09/16/2019 Overview: 01/16/2019Desires nuchal ultrasound. TKRN documented as of this encounter (statuses as of 04/17/2022) [facility] of [facility] illness Narrative* Problem Noted Date Resolved Date Abnormal glucose complicating 06/23/19 20 09/16/2019 Overview: 06/25/19-3hr GTT normal. Mariangel Sage APRN.CNM Nausea and vomiting in 01/16/2019 09/16/2019 Overview: 01/16/2019Patient was seen at [facility] for complaints of nausea and occasional vomiting in 01/05/2019. Denies vomiting now. Dietary considerations discussed . Vitamin B6 recommended. Advised patient to call/come in if she is unable to keep any food or fluids down in a 24-hour period. TKRN Patient request for diagnostic testing 9 09/16/2019 Overview: 01/16/2019Desires nuchal ultrasound. TKRN documented as of this encounter (statuses as of 05/11/2022) [facility] of [facility] illness Narrative* Problem Noted Date Resolved Date Abnormal glucose complicating 06/23/19 20 09/16/2019 Overview: 06/25/19-3hr GTT normal. Mariangel Sage APRN.CNM Nausea and vomiting in 01/16/2019 09/16/2019 Overview: 01/16/2019Patient was seen at [facility] for complaints of nausea and occasional vomiting in 01/05/2019. Denies vomiting now. Dietary considerations discussed . Vitamin B6 recommended. Advised patient to call/come in if she is unable to keep any food or fluids down in a 24-hour period. TKRN Patient request for diagnostic testing 9 09/16/2019 Overview: 01/16/2019Desires nuchal ultrasound. TKRN documented as of this encounter (statuses as of 06/16/2022) [facility] illness Narrative* Problem Noted Date Resolved Date Abnormal glucose complicating 06/23/1909/16/2019 Overview: 06/25/19-3hr GTT normal. Mariangel Sage APRN.CNM Nausea and vomiting in 01/16/2019 09/16/2019 Overview: 01/16/2019Patient was seen at [facility] for complaints of nausea and occasional vomiting in 01/05/2019. Denies vomiting now. Dietary considerations discussed . Vitamin B6 recommended. Advised patient to call/come in if she is unable to keep any food or fluids down in a 24-hour period. TKRN Patient request for diagnostic testing 9 09/16/2019 Overview: 01/16/2019Desires nuchal ultrasound. TKRN documented as of this encounter (statuses as of 06/21/2022) [facility] illness Narrative* Problem Noted Date Resolved Date Abnormal glucose complicating 06/23/1909/16/2019 Overview: 06/25/19-3hr GTT normal. Mariangel Sage APRN.CNM Nausea and vomiting in 01/16/2019 09/16/2019 Overview: 01/16/2019Patient was seen at [facility] for complaints of nausea and occasional vomiting in 01/05/2019. Denies vomiting now. Dietary considerations discussed . Vitamin B6 recommended. Advised patient to call/come in if she is unable to keep any food or fluids down in a 24-hour period. TKRN Patient request for diagnostic testing 9 09/16/2019 Overview: 01/16/2019Desires nuchal ultrasound. TKRN documented as of this encounter (statuses as of 06/23/2022) [facility] Narrative* Problem Noted Date Resolved Date Abnormal glucose complicating 06/23/19 20 09/16/2019 Overview: 06/25/19-3hr GTT normal. Mariangel Sage APRN.CNM documented as of this encounter (statuses as of 08/07/2022) [facility] Narrative* Problem Noted Date Resolved Date Abnormal glucose complicating 06/23/19 20 09/16/2019 Overview: 06/25/19-3hr GTT normal. Mariangel Sage APRN.CNM documented as of this encounter (statuses as of 08/14/2022) [facility] Narrative* Problem Noted Date Diagnosed Date Resolved Date Abnormal glucose complicating 06/23/2019 09/16/2019 Overview: 06/25/19-3hr GTT normal. Mariangel Sage APRN.CNM documented as of this encounter (statuses as of 08/29/2022) [facility] Narrative* Problem Noted Date Diagnosed Date Resolved Date Abnormal glucose complicating 06/23/2019 09/16/2019 Overview: 06/25/19-3hr GTT normal. Mariangel Sage APRN.CNM documented as of this encounter (statuses as of 09/01/2022) [facility] Narrative* Problem Noted Date Diagnosed Date Resolved Date Abnormal glucose complicating 06/23/2019 09/16/2019 Overview: /20-3hr GTT normal. Mariangel Sage APRN.CNM documented as of this encounter (statuses as of 09/08/2022) [facility] Narrative* Problem Noted Date Diagnosed Date Resolved Date Abnormal glucose complicating 06/23/2019 09/16/2019 Overview: /20-3hr GTT normal. Mariangel Sage APRN.CNM documented as of this encounter (statuses as of 10/02/2022) [facility] Narrative* Problem Noted Date Diagnosed Date Resolved Date Abnormal glucose complicating 06/23/2019 09/16/2019 Overview: /20-3hr GTT normal. Mariangel Sage APRN.CNM documented as of this encounter (statuses as of 10/09/2022) [facility] Narrative* Problem Noted Date Diagnosed Date Resolved Date Abnormal glucose complicating 06/23/2019 09/16/2019 Overview: 20-3hr GTT normal. Mariangel Sage APRN.CNM documented as of this encounter (statuses as of 10/20/2022) [facility] Narrative* Problem Noted Date Diagnosed Date Resolved Date Abnormal glucose complicating 06/23/2019 09/16/2019 Overview: 20-3hr GTT normal. Mariangel Sage APRN.CNM documented as of this encounter (statuses as of 11/12/2022) [facility] Narrative* Problem Noted Date Diagnosed Date Resolved Date Abnormal glucose complicating 06/23/2019 09/16/2019 Overview: /20-3hr GTT normal. Mariangel Sage APRN.CNM documented as of this encounter (statuses as of 11/18/2022) [facility] Narrative* Problem Noted Date Diagnosed Date Resolved Date Abnormal glucose complicating 06/23/2019 09/16/2019 Overview: /20-3hr GTT normal. Mariangel Sage APRN.CNM documented as of this encounter (statuses as of 11/29/2022) [facility] Narrative* Problem Noted Date Diagnosed Date Resolved Date Abnormal glucose complicating 06/23/2019 09/16/2019 Overview: /20-3hr GTT normal. Mariangel Sage APRN.CNM documented as of this encounter (statuses as of 12/12/2022) [facility] Narrative* Problem Noted Date Diagnosed Date Resolved Date Abnormal glucose complicating 06/23/2019 09/16/2019 Overview: /20-3hr GTT normal. Mariangel Sage APRN.CNM documented as of this encounter (statuses as of 12/12/2022) [facility] Narrative* Problem Noted Date Diagnosed Date Resolved Date Abnormal glucose complicating 06/23/2019 09/16/2019 Overview: /20-3hr GTT normal. Mariangel Sage APRN.CNM documented as of this encounter (statuses as of 12/21/2022) [facility] Narrative* Problem Noted Date Diagnosed Date Resolved Date Abnormal glucose complicating 06/23/2019 09/16/2019 Overview: /20-3hr GTT normal. Mariangel Sage APRN.CNM documented as of this encounter (statuses as of 01/09/2023) [facility] Narrative* Problem Noted Date Diagnosed Date Resolved Date Abnormal glucose complicating 06/23/2019 09/16/2019 Overview: 06/25/19-3hr GTT normal. Mariangel Sage APRN.CNM documented as of this encounter (statuses as of 01/12/2023) [facility] Narrative* Problem Noted Date Diagnosed Date Resolved Date Abnormal glucose complicating 06/23/2019 09/16/2019 Overview: 06/25/19-3hr GTT normal. Mariangel Sage APRN.CNM documented as of this encounter (statuses as of 01/25/2023) [facility] Diagnosis Ovarian cyst, complex Other and unspecified ovarian cyst [facility] Diagnosis Encounter for gynecological examination (general) (routine) without abnormal findings- Primary Screening for cervical cancer Screening for malignant neoplasm of the cervix Encounter for screening for human papillomavirus (HPV) Special screening examination for human papillomavirus (HPV) Encounter for initial prescription of contraceptive pills General counseling for prescription of oral contraceptives [facility]* Diagnosis Viral illness- Primary Unspecified viral infection, in conditions classified elsewhere and of unspecified site [facility]* Diagnosis Pelvic pain- Primary Lower abdominal pain Abdominal pain, other specified site [facility]* Diagnosis JIN (generalized anxiety disorder) Generalized anxiety disorder [facility]* Diagnosis Well adult exam- Primary Routine general medical examination at a health care facility JIN (generalized anxiety disorder) Generalized anxiety disorder Vitamin D deficiency Unspecified vitamin D deficiency Weight gain Abnormal weight gain Screening for depression [facility]* Diagnosis Vitamin D deficiency Unspecified vitamin D deficiency [facility]* Diagnosis History of pre-eclampsia in prior , currently - Primary with other poor obstetric history History of strep sore throat Personal history of other infectious and parasitic disease History of anxiety Personal history of other mental disorder Nausea and vomiting during Patient request for diagnostic testing Other specified examination [facility]* Diagnosis Pelvic pain in - Primary Other specified complication of , unspecified as to episode of care [facility]* Diagnosis SOB (shortness of breath)- Primary Shortness of breath 10 weeks gestation of state, incidental [facility]* Diagnosis Encounter for supervision of normal first in second trimester- Primary Supervision of normal first 12 weeks gestation of state, incidental JIN (generalized anxiety disorder) Generalized anxiety disorder [facility]* Diagnosis Encounter for (NT) nuchal translucency scan- Primary Other specified screening Encounter for supervision of normal first in second trimester Supervision of normal first 13 weeks gestation of state, incidental [facility]* Diagnosis Sore throat- Primary Acute pharyngitis [facility]* Diagnosis 22 weeks gestation of - Primary state, incidental Encounter for supervision of other normal in first trimester Diastasis recti Diastasis of muscle [facility]* Diagnosis Pyelectasis of fetus on ultrasound- Primary Abnormal findings on screening Encounter for supervision of other normal in first trimester [facility]* Diagnosis JIN (generalized anxiety disorder) Generalized anxiety disorder [facility]* Diagnosis Supervision of high risk in second trimester- Primary Unspecified high-risk Pyelectasis of fetus on ultrasound Abnormal findings on screening 26 weeks gestation of state, incidental Need for influenza vaccination Need for prophylactic vaccination and inoculation against influenza [facility]* Diagnosis 28 weeks gestation of - Primary state, incidental Supervision of high risk in second trimester Unspecified high-risk Need for vaccination Need for prophylactic vaccination and inoculation against unspecified single disease [facility]* Diagnosis 36 weeks gestation of - Primary state, incidental Supervision of high risk in third trimester Unspecified high-risk JIN (generalized anxiety disorder) Generalized anxiety disorder Excessive growth affecting management of in third trimester, single or unspecified fetus Polyhydramnios in third trimester complication, single or unspecified fetus documented in this encounter [facility] for referral (narrative)* Diagnostic Procedure Only (Routine) - Closed Specialty Diagnoses / Procedures Referred By Contac t Referred To Contact US IMAGING Diagnoses Ovarian cyst, complex Procedures US FEMALE PELVIS TRANSVAG US TRANSVAGINAL Indira Marie APRN.NETWORK SYSTEMS OPERATOR [address] [place] [address] Us Imaging Referral ID Status Reason Start Date Expiration Date V isits Requested Visits Authorized [id number] Closed Auto-Generate d Referral 05/26/2021 05/07/2022 1 1 [facility] for referral (narrative)* Diagnostic Procedure Only (Routine) - Pending Review Specialty Diagnoses / Procedures Referred By Contac t Referred To Contact US IMAGING Diagnoses Pelvic pain Lower abdominal pain Procedures US FEMALE PELVIS TRANSVAG US TRANSVAGINAL Barb Taylor APRN.CNP [address] [place] [id number] Us Imaging Referral ID Status Reason Start Date Expiration Date Visits Requested Visits Authorized [id number] Pending Review Auto-Generat ed Referral 03/10/2023 1 1 [facility] for referral (narrative)* Diagnostic Procedure Only (Routine) - Authorized Specialty Diagnoses / Procedures Referred By Contac t Referred To Contact [facility] Diagnoses Encounter for supervision of normal first in second trimester 12 weeks gestation of Procedures NUCHAL TRANSLUCENCY WHI US NUCHAL TRANSLUCENCY 1ST GESTATION Alana Dougherty APRN.CNM [address] [place] [address] [facility] [address] [place] [address] Referral ID Status Reason Start Date Expiration Date Visits Requested Visits Authorized [id number] Authorized Auto-Generat ed Referral 10/02/2022 10/02/2023 1 1 [facility] for referral (narrative)* Diagnostic Procedure Only (Routine) - Pending Review Specialty Diagnoses / Procedures Referred By Contac t Referred To Contact [facility] Diagnoses Pyelectasis of fetus on ultrasound Encounter for supervision of other normal in first trimester Procedures OBSTETRIC ULTRASOUND WHI US PREG UTERUS AFTER 1ST TRIMEST GESTATION Hilton Winters MD [address] [place] [address] [facility] [address] [place] [address] Referral ID Status Reason Start Date Expiration Date Visits Requested Visits Authorized [id number] Pending Review Auto-Generat ed Referral 3 12/11/2023 1 1 [facility] for visit Narrative* Diagnostic Procedure Only (Routine) - Closed Specialty Diagnoses / Procedures Referred By Ascencion trivedi Referred To Contact US IMAGING Diagnoses Ovarian cyst, complex Procedures US FEMALE PELVIS TRANSVAG US TRANSVAGINAL Indira Marie APRN.NETWORK SYSTEMS OPERATOR [address] [place] [address] Us Imaging Referral ID Status Reason Start Date Expiration Date V isits Requested Visits Authorized [id number] Closed Auto-Generate d Referral 05/26/2021 05/07/2022 1 1 [facility] Summary Purpose Family History No Family History Records FoundNo Family History Records FoundNo Family History Records FoundNo Family History Records Found Advance Directives No Advanced Directives Records FoundDocuments on File Type Date Recorded 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 Advance Directive(s) 03/31/2021 8:18 AM Advance Directive(s) 12/24/2019 10:54 AM Advance Directive(s) 01/05/2019 5:39 PM Advance Directive(s) 01/05/2019 9:38 PM Advance Directive(s) 12/14/2017 11:44 PM Documents on File Type Date Recorded 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 Advance Directive(s) 03/31/2021 8:18 AM [...] CC Education - COMMON 09/04/2022 [place] - [place] 09/04/2022 Problem Noted Date Diagnosed Date [facility] Education - [place] 09/04/2022 Education - [place] 09/04/2022 Problem Noted Date Diagnosed Date [facility] Education - [place] 09/04/2022 [place] - [place] 09/04/2022 Problem Noted Date Diagnosed Date [facility] Education - [place] 09/04/2022 [place] - [place] 09/04/2022 Problem Noted Date Diagnosed Date [facility] Education - [place] 09/04/2022 [place] - [place] 09/04/2022 Problem Noted Date Diagnosed Date [facility]04/2022 Education - [place] 09/04/2022 Problem Noted Date Diagnosed Date [facility] Education - [facility] 09/04/2022 Education - [place] 09/04/2022 Problem Noted Date Diagnosed Date [facility] Education - [place] 09/04/2022 Education - [place] 09/04/2022 Problem Noted Date Diagnosed Date [facility] Education - [place] 09/04/2022 Education - [place] 09/04/2022 Problem Noted Date Diagnosed Date [facility] Education - [place] 09/04/2022 Education - [place] 09/04/2022 Problem Noted Date Diagnosed Date [facility] 09/04/2022 Education - [place] 09/04/2022 Problem Noted Date Diagnosed Date [facility] Education - [facility] 09/04/2022 Education - [place] 09/04/2022 Reason for Referral Specialty Diagnoses / Procedures Referred By [facility] t Referred To Contact [facility] Diagnoses 22 weeks gestation of Encounter for supervision of other normal in first trimester Diastasis recti Procedures CONSULT TO PHYSICAL THERAPY PHYSICAL THERAPY EVALUATION HIGH COMPLEX 45 MINS Vanessa Banuelos MD [address] [place] [address] [facility] [place] [address] Referral ID Status Reason Start Date Expiration Date Visits Requested Visits Authorized [id number] Pending Review Auto-Generat ed Referral 3 12/11/2023 1 1 Additional Source Comments INFORMATION SOURCE (unrecogn ized section and content) DATE CREATED AUTHOR AUTHOR'S ORGANIZ ATION 08/30/2022 [facility] DATE CREATED AUTHOR AUTHOR'S ORGANIZ ATION 12/29/2022 [facility] DATE CREATED AUTHOR AUTHOR'S ORGANIZ ATION 03/24/2023 [facility] Source Comments (unrecognize d section and content) In the event this informatio n is protected by the Federal Confidentiality of Alcohol and Drug Abuse Patient Records regulations: The Federal rules restrict any use of the information to criminally investigate or prosecute any alcohol or drug abuse patient.[facility] the event this information is protected by the Federal Confidentiality of Alcohol and Drug Abuse Patient Records regulations: The Federal rules restrict any use of the information to criminally investigate or prosecute any alcohol or drug abuse patient.[facility] SpringfieldIn the event this information is protected by the Federal Confidentiality of Alcohol and Drug Abuse Patient Records regulations: The Federal rules restrict any use of the information to criminally investigate or prosecute any alcohol or drug abuse patient.[facility] SpringfieldIn the event this information is protected by the Federal Confidentiality of Alcohol and Drug Abuse Patient Records regulations: The Federal rules restrict any use of the information to criminally investigate or prosecute any alcohol or drug abuse patient.[facility] SpringfieldIn the event this information is protected by the Federal Confidentiality of Alcohol and Drug Abuse Patient Records regulations: The Federal rules restrict any use of the information to criminally investigate or prosecute any alcohol or drug abuse patient.[facility] SpringfieldIn the event this information is protected by the Federal Confidentiality of Alcohol and Drug Abuse Patient Records regulations: The Federal rules restrict any use of the information to criminally investigate or prosecute any alcohol or drug abuse patient.[facility] SpringfieldIn the event this information is protected by the Federal Confidentiality of Alcohol and Drug Abuse Patient Records regulations: The Federal rules restrict any use of the information to criminally investigate or prosecute any alcohol or drug abuse patient.[facility] SpringfieldIn the event this information is protected by the Federal Confidentiality of Alcohol and Drug Abuse Patient Records regulations: The Federal rules restrict any use of the information to criminally investigate or prosecute any alcohol or drug abuse patient.[facility] SpringfieldIn the event this information is protected by the Federal Confidentiality of Alcohol and Drug Abuse Patient Records regulations: The Federal rules restrict any use of the information to criminally investigate or prosecute any alcohol or drug abuse patient.[facility] SpringfieldIn the event this information is protected by the Federal Confidentiality of Alcohol and Drug Abuse Patient Records regulations: The Federal rules restrict any use of the information to criminally investigate or prosecute any alcohol or drug abuse patient.[facility] SpringfieldIn the event this information is protected by the Federal Confidentiality of Alcohol and Drug Abuse Patient Records regulations: The Federal rules restrict any use of the information to criminally investigate or prosecute any alcohol or drug abuse patient.[facility] SpringfieldIn the event this information is protected by the Federal Confidentiality of Alcohol and Drug Abuse Patient Records regulations: The Federal rules restrict any use of the information to criminally investigate or prosecute any alcohol or drug abuse patient.[facility] SpringfieldIn the event this information is protected by the Federal Confidentiality of Alcohol and Drug Abuse Patient Records regulations: The Federal rules restrict any use of the information to criminally investigate or prosecute any alcohol or drug abuse patient.[facility] SpringfieldIn the event this information is protected by the Federal Confidentiality of Alcohol and Drug Abuse Patient Records regulations: The Federal rules restrict any use of the information to criminally investigate or prosecute any alcohol or drug abuse patient.[facility] SpringfieldIn the event this information is protected by the Federal Confidentiality of Alcohol and Drug Abuse Patient Records regulations: The Federal rules restrict any use of the information to criminally investigate or prosecute any alcohol or drug abuse patient.[facility] SpringfieldIn the event this information is protected by the Federal Confidentiality of Alcohol and Drug Abuse Patient Records regulations: The Federal rules restrict any use of the information to criminally investigate or prosecute any alcohol or drug abuse patient.[facility] SpringfieldIn the event this information is protected by the Federal Confidentiality of Alcohol and Drug Abuse Patient Records regulations: The Federal rules restrict any use of the information to criminally investigate or prosecute any alcohol or drug abuse patient.[facility] SpringfieldIn the event this information is protected by the Federal Confidentiality of Alcohol and Drug Abuse Patient Records regulations: The Federal rules restrict any use of the information to criminally investigate or prosecute any alcohol or drug abuse patient.[facility] SpringfieldIn the event this information is protected by the Federal Confidentiality of Alcohol and Drug Abuse Patient Records regulations: The Federal rules restrict any use of the information to criminally investigate or prosecute any alcohol or drug abuse patient.[facility] SpringfieldIn the event this information is protected by the Federal Confidentiality of Alcohol and Drug Abuse Patient Records regulations: The Federal rules restrict any use of the information to criminally investigate or prosecute any alcohol or drug abuse patient.[facility] SpringfieldIn the event this information is protected by the Federal Confidentiality of Alcohol and Drug Abuse Patient Records regulations: The Federal rules restrict any use of the information to criminally investigate or prosecute any alcohol or drug abuse patient.[facility] SpringfieldIn the event this information is protected by the Federal Confidentiality of Alcohol and Drug Abuse Patient Records regulations: The Federal rules restrict any use of the information to criminally investigate or prosecute any alcohol or drug abuse patient.[facility] SpringfieldIn the event this information is protected by the Federal Confidentiality of Alcohol and Drug Abuse Patient Records regulations: The Federal rules restrict any use of the information to criminally investigate or prosecute any alcohol or drug abuse patient.[facility] SpringfieldIn the event this information is protected by the Federal Confidentiality of Alcohol and Drug Abuse Patient Records regulations: The Federal rules restrict any use of the information to criminally investigate or prosecute any alcohol or drug abuse patient.[facility] SpringfieldIn the event this information is protected by the Federal Confidentiality of Alcohol and Drug Abuse Patient Records regulations: The Federal rules restrict any use of the information to criminally investigate or prosecute any alcohol or drug abuse patient.[facility] SpringfieldIn the event this information is protected by the Federal Confidentiality of Alcohol and Drug Abuse Patient Records regulations: The Federal rules restrict any use of the information to criminally investigate or prosecute any alcohol or drug abuse patient.[facility] the event this information is protected by the Federal Confidentiality of Alcohol and Drug Abuse Patient Records regulations: The Federal rules restrict any use of the information to criminally investigate or prosecute any alcohol or drug abuse patient.[facility]In the event this information is protected by the Federal Confidentiality of Alcohol and Drug Abuse Patient Records regulations: The Federal rules restrict any use of the information to criminally investigate or prosecute any alcohol or drug abuse patient.[facility] SpringfieldIn the event this information is protected by the Federal Confidentiality of Alcohol and Drug Abuse Patient Records regulations: The Federal rules restrict any use of the information to criminally investigate or prosecute any alcohol or drug abuse patient.[facility] SpringfieldIn the event this information is protected by the Federal Confidentiality of Alcohol and Drug Abuse Patient Records regulations: The Federal rules restrict any use of the information to criminally investigate or prosecute any alcohol or drug abuse patient.[facility] SpringfieldIn the event this information is protected by the Federal Confidentiality of Alcohol and Drug Abuse Patient Records regulations: The Federal rules restrict any use of the information to criminally investigate or prosecute any alcohol or drug abuse patient.[facility] Care Teams (unrecognized sec tion and content) Hazmat Cdl Driver Relationship Specialty Start Date End Date Mari Ochoa, OUTBOARD MOTOR INSPECTOR.NETWORK SYSTEMS OPERATOR [address] [place] [address] PCP - General Family Practice 04/05/21 Hazmat Cdl Driver Relationship Specialty Start Date End Date Mari Ochoa, OUTBOARD MOTOR INSPECTOR.NETWORK SYSTEMS OPERATOR [address] [place] [address] PCP - General Family Practice 04/05/21 Hazmat Cdl Driver Relationship Specialty Start Date End Date Mari Ochoa OUTBOARD MOTOR INSPECTOR.NETWORK SYSTEMS OPERATOR [address] [place] [address] PCP - General Family Medicine 04/05/21 Hazmat Cdl Driver Relationship Specialty Start Date End Date Mari Ochoa, OUTBOARD MOTOR INSPECTOR.NETWORK SYSTEMS OPERATOR [address] [place] [address] PCP - General Family Medicine 04/05/21 Hazmat Cdl Driver Relationship Specialty Start Date End Date Mari Ochoa OUTBOARD MOTOR INSPECTOR.NETWORK SYSTEMS OPERATOR [address] [place] [address] PCP - General Family Medicine 04/05/21 Hazmat Cdl Driver Relationship Specialty Start Date End Date Mari Ochoa OUTBOARD MOTOR INSPECTOR.NETWORK SYSTEMS OPERATOR [address] [place] [address] PCP - General Family Medicine 04/05/21 Hazmat Cdl Driver Relationship Specialty Start Date End Date Mari Ochoa, OUTBOARD MOTOR INSPECTOR.NETWORK SYSTEMS OPERATOR [address] [place] [address] PCP - General Family Medicine 04/05/21 Hazmat Cdl Driver Relationship Specialty Start Date End Date Mari Ochoa, OUTBOARD MOTOR INSPECTOR.NETWORK SYSTEMS OPERATOR [address] [facility] [address] PCP - General Family Medicine 04/05/21 Hazmat Cdl Driver Relationship Specialty Start Date End Date Mari Ochoa, OUTBOARD MOTOR INSPECTOR.NETWORK SYSTEMS OPERATOR [address] [place] [address] PCP - General Family Medicine 04/05/21 Hazmat Cdl Driver Relationship Specialty Start Date End Date Mari Ochoa, OUTBOARD MOTOR INSPECTOR.NETWORK SYSTEMS OPERATOR [address] [facility] [place] [address] PCP - General Family Medicine 04/05/21 Hazmat Cdl Driver Relationship Specialty Start Date End Date Mari Ochoa, OUTBOARD MOTOR INSPECTOR.NETWORK SYSTEMS OPERATOR [address] [place] [address] PCP - General Family Medicine 04/05/21 Hazmat Cdl Driver Relationship Specialty Start Date End Date Mari Ochoa, OUTBOARD MOTOR INSPECTOR.NETWORK SYSTEMS OPERATOR [address] [place] [address] PCP - General Family Medicine 04/05/21 Hazmat Cdl Driver Relationship Specialty Start Date End Date Mari Ochoa, OUTBOARD MOTOR INSPECTOR.NETWORK SYSTEMS OPERATOR [address] [place] [address] PCP - General Family Medicine 04/05/21 Hazmat Cdl Driver Relationship Specialty Start Date End Date Mari Ochoa, OUTBOARD MOTOR INSPECTOR.NETWORK SYSTEMS OPERATOR [address] [place] [address] PCP - General Family Medicine 04/05/21 Hazmat Cdl Driver Relationship Specialty Start Date End Date Mari Ochoa, OUTBOARD MOTOR INSPECTOR.NETWORK SYSTEMS OPERATOR [address] [place] [address] PCP - General Family Medicine 04/05/21 Hazmat Cdl Driver Relationship Specialty Start Date End Date Mari Ochoa, OUTBOARD MOTOR INSPECTOR.NETWORK SYSTEMS OPERATOR [address] [place] [address] PCP - General Family Medicine 04/05/21 Hazmat Cdl Driver Relationship Specialty Start Date End Date Mari Ochoa, OUTBOARD MOTOR INSPECTOR.NETWORK SYSTEMS OPERATOR [address] [place] [address] PCP - General Family Medicine 04/05/21 Hazmat Cdl Driver Relationship Specialty Start Date End Date Mari Ochoa, OUTBOARD MOTOR INSPECTOR.NETWORK SYSTEMS OPERATOR [address] [place] [address] PCP - General Family Medicine 04/05/21 Hazmat Cdl Driver Relationship Specialty Start Date End Date Mari Ochoa, OUTBOARD MOTOR INSPECTOR.NETWORK SYSTEMS OPERATOR [address] [place] [address] PCP - General Family Medicine 04/05/21 Hazmat Cdl Driver Relationship Specialty Start Date End Date Mari Ochoa, OUTBOARD MOTOR INSPECTOR.NETWORK SYSTEMS OPERATOR [address] [place] [address] PCP - General Family Medicine 04/05/21 Hazmat Cdl Driver Relationship Specialty Start Date End Date Mari Ochoa, OUTBOARD MOTOR INSPECTOR.NETWORK SYSTEMS OPERATOR [address] [place] [address] PCP - General Family Medicine 04/05/21 Hazmat Cdl Driver Relationship Specialty Start Date End Date Mari Ochoa APRN.[place] [address] [place] [address] PCP - General Family Medicine 04/05/21 Reason [...] Referred By [facility] trivedi Referred To Contact [facility] Diagnoses Encounter for supervision of normal first in second trimester 12 weeks gestation of Procedures NUCHAL TRANSLUCENCY WHI US NUCHAL TRANSLUCENCY 1ST GESTATION Alana Dougherty, [facility] [address] [place] [address] [facility] [address] [place] [address] Referral ID Status Reason Start Date Expiration Date V isits Requested Visits Authorized [id number] Closed Auto-Generate d Referral 10/02/2022 10/02/2023 1 1 Reason Comments OB Covid + Reason Comments Sore Throat ST x 1 day Reason Comments Movement Reason Onset Date Comments Care 12/11/2022 Reason Onset Date Comments Care 01/08/2023 Immunizations 01/08/2023 Flu vaccination Reason Comments Abdominal Pain Reason Onset Date Comments Care 01/19/2023 Reason Onset Date Comments Care 03/16/2023 Reason Comments OB- headache Reason Comments Ob Delivery Note FOR RECORDS PERTAINING TO PATIENTS WHO ARE [...] BE BASED ON THE PRIMARY CLINICAL RECORDS. [facility] [employer] [facility]. provides no warranty or guarantee of the accuracy or completeness of information in this document.
[2023-03-25 20:57] LABS: Hematocrit 29.9 % (37-47); Hemoglobin 10.2 g/dL (12.0-15.0); Mean Corp Hgb Conc 34.1 g/dL (32-36); Mean Corpuscular Hgb 31.2 pg (27.0-32.0); Mean Corpuscular Volume 91.4 fL (81-99); Mean Platelet Vol. 9.4 fl (6.2-12.0); Platelet Count 250 K/mm3 (150-450); RBC Distribution Width CV 13.3 % (11.6-14.6); RBC Distribution Width SD 43.9 fl (35.1-43.9); Red Blood Count 3.27 M/mm3 (4.2-5.4); White Blood Count 8.4 K/mm3 (4.4-11.0)
[2023-03-25 21:08] LABS: Protein, Urine (Random) 30.8 mg/dL (<11.9); Protein:Creat Ratio 1010 mg/g CRE (0-200)
[2023-03-25 21:09] LABS: AST(SGOT) 15 U/L (15-37); Alanine Aminotransfer ALT/SGPT 22 U/L (13-56); Creatinine, Serum 0.62 mg/dL (0.55-1.02); EST Glomerular Filtration Rate 117 mL/min (>60); Est Glom Filt Rate - Afr Amer 141 mL/min (>60); Uric Acid 4.5 mg/dL (2.6-6.0)
[2023-03-25] MEDS: Labetalol 200 MG Tablet PO (22:13)
--- NOTE | 2023-03-26 02:40 | OB.TRI.NOTE ---
HPI - General HPI Narrative ABDULLAHI MARCELINO, is a 32 F who presents for elevated blood pressures at home. Patient had on 03/22/23. She reports today having blood pressures ranging from 130-150's / 80-90's. She denies headache, dizziness, SOB, or CP. She reports just feeling off today . She is . Maternal Data Information TATI Calculator Estimated Delivery Date Method Current WG Current Estimate 04/12/23 Manual 37w 4d PFSH PFSH Medical History Abnormal glucose complicating Anxiety Depression Headache History of anxiety History of migraine Pre-eclampsia Home Medications acetaminophen 325 mg capsule (Tylenol) 650 mg PO Q4H PRN headache 03/21/23 [History Last Taken 03/21/23] docosahexaenoic acid 200 mg capsule ( DHA) 1 mg PO see provider 03/21/23 [History Last Taken 03/22/23 08:00] escitalopram oxalate 20 mg tablet (Lexapro) 20 mg PO DAILY anxiety 03/21/23 [History Last Taken 03/24/23 21:00] ferrous sulfate 325 mg (65 mg iron) tablet (iron) 325 mg PO QODAY 03/21/23 [History Last Taken 03/25/23 13:00] ibuprofen 600 mg tablet 600 mg PO Q6H PRN Pain 30 days #60 TABLETS 03/23/23 [Rx Last Taken 03/25/23 08:00] Allergy/AdvReac Type Severity Reaction Status Date / Time Sulfa (Sulfonamide AdvReac Hives Verified 03/25/23 21:12 Antibiotics) Social History Smoking Status: Former smoker History Elective abortions Hx Para 1 Spontaneous abortions Hx # Term Pregnancies Ectopic pregnancies Hx # Pregnancies Multiple births # of living children ROS Eyes Eyes: Denies blurry vision Cardiovascular Cardiovascular: Reports none; Denies chest pain at rest, chest pain with activity or dizziness Respiratory/Chest Respiratory/Chest: Denies cough or dyspnea Gastrointestinal Gastrointestinal: Reports none and other; Denies diarrhea or vomiting Genitourinary Genitourinary: Denies dysuria Musculoskeletal Musculoskeletal: Reports none Integumentary Integumentary: Reports none; Denies rash Neurologic Neurologic: Denies dizziness, headache(s) or other visual disturbances Psychiatric Psychiatric: Reports none Physical Exam Const alert and no apparent distress General Appearance: cooperative Orientation / Consciousness: awake Exam Limitations: no limitations HEENT normocephalic Eyes General Eye: normal appearance of both eyes Neck full ROM Chest inspection of chest normal Resp normal respiratory effort and normal air movement Effort and Inspection: symmetric chest movement Auscultation: clear to auscultation bilaterally Cardio regular rate GI soft to palpation, non-tender and non-distended Inspection: and other Back/Spine normal ROM Extremity full ROM, normal capillary refill and no calf tenderness Skin no rashes or lesions noted Neuro oriented x3 and CN's II-XII intact bilaterally Psych mental status grossly normal Assessment & Plan (1) Vaginal laceration: (2) Vaginal delivery: (3) History of pre-eclampsia: (4) hypertension: PLAN: Plan PIH labs within normal ranges No severe range blood pressures Start Labetalol 200 mg PO BID- give first dose now and RX sent D/C home with follow up in office this week for BP check Dr. Rodas involved in plan of care.
== END 2023-03-25 22:38 | disposition home or self-care (01) ==
LOC: WPPAT 20:37 → WP 20:38
PROVIDERS: Visit Provider Advanced Practice Midwife
DX: O16.5 Unspecified maternal hypertension, complicating the puerperium (principal); Z87.891 Personal history of nicotine dependence; Z3A.00 Weeks of gestation of pregnancy not specified
CPT/HCPCS: 82565; 82570; 84156; 84450; 84460; 84550; 85027